=== PATIENT | female | born 1955 | race Caucasian/White ===

== ENCOUNTER 2017-06-21 16:27 | Inpatient (IN) | payer MEDICARE ==
[2017-06-21] MEDS ORDERED: Aspirin 81mg Chewable Tab PO STA (16:43)
[2017-06-21] MEDS ORDERED: Aspirin 81mg Chewable Tab ONE (16:58)
[2017-06-21 17:00] LABS: % BASOPHILS 0.4 % (0.0-2.0); % EOSINOPHILS 0.7 % (0.0-5.0); % LYMPHOCYTES 22.4 % (20.0-50.0); % MONOCYTES 8.1 % (2.0-10.0); % NEUTROPHILS 68.4 % (40.0-80.0); HEMATOCRIT 45.5 % (41.0-60); HEMOGLOBIN 15.4 gm/dL (12-16); LYMPHOCYTE ABSOLUTE 1.4 Th/cmm (1.5-3.0); MEAN CORPUSCULAR HEMOGLOBIN 32.4 pg (27.0-31.0); MEAN CORPUSCULAR HGB CONC 33.8 pg (28.0-36.0); MEAN PLATELET VOLUME 9.9 fl; MONOCYTE ABSOLUTE 0.5 Th/cmm (0.3-1.0); NEUTROPHILE ABSOLUTE 4.2 Th/cmm (1.8-8.0); PLATELET COUNT 207 Th/cmm (150-400); RED BLOOD COUNT 4.74 Mil/cmm (3.80-5.10); RED CELL DISTRIBUTION WIDTH 13.2 % (11.5-20.0); WHITE BLOOD COUNT 6.1 Th/cmm (4.8-10.8)
[2017-06-21 17:18] LABS: INR 1.11 (0.5-1.4); PROTHROMBIN TIME (TEST) 11.6 SECONDS (9.5-11.5)
[2017-06-21 17:19] LABS: ALB/GLOB RATIO 1.2 (1.0-1.8); ALBUMIN 3.7 gm/dL (3.7-5.3); ALKALINE PHOSPHATASE 70 U/L (34-104); ANION GAP 14.1 (7.0-16.0); BILIRUBIN,TOTAL 0.5 mg/dL (0.3-1.0); BUN - UREA NITROGEN 5 mg/dL (7-25); CALCIUM SERUM 9.5 mg/dL (8.6-10.3); CHLORIDE 98 mEq/L (98-107); CHOLESTEROL 161 mg/dL (<200); CREATININE - SERUM 0.9 mg/dL (0.6-1.2); CREATININE KINASE 68 U/L (30-223); GFR AFRICAN-AMERICAN > 60.0 ml/min (>90); GFR NON AFRICAN-AMERICAN > 60.0 ml/min; GLUCOSE 89 mg/dL (70-105); HDL -HIGH DENSITY LIPOPROTEIN 47 mg/dL (23-92); POTASSIUM SERUM 3.1 mEq/L (3.5-5.1); SGOT 21 U/L (13-39); SGPT/ALT 24 U/L (7-52); SODIUM SERUM 140 mEq/L (136-145); TOTAL PROTEIN,SERUM 6.9 gm/dL (6.0-8.3); TRIGLYCERIDES 106 mg/dL (<150)
[2017-06-21 17:25] LABS: DDIMER QUANT 244 ng/mL (100-400)
--- NOTE | 2017-06-21 17:54 | ED Physician Chart ---
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 Pain, A/N/V/D/C, fever, chills, or urinary s/s Allergies:: Allergies Allergy/AdvReac Type Severity Reaction Status Date / Time No Known Allergies Allergy Verified 06/21/17 16:33 Vitals:: Vital Signs - 8 hr 06/21/17 16:38 Temp 98.2 F HR 81 RR 16 BP 136/94 O2 Sat % 99 Historian:: Patient, Family Member Review:: Nurse's Note Reviewed ED Review of Systems - Review of Systems General/Constitutional: No fever, No chills, No weight loss, No weakness, No diaphoresis, No edema, No loss of appetite Skin: No skin lesions, No rash, No bruising Head: No headache, No light-headedness Eyes: No loss of vision, No pain, No diplopia ENT: No earache, No nasal drainage, No sore throat, No tinnitus Neck: No neck pain, No swelling, No thyromegaly, No stiffness, No mass noted Cardio Vascular: Chest pain, No palpitations, No PND, No orthopnea, No edema Pulmonary: SOB, No cough, No sputum, No wheezing GI: No nausea, No vomiting, No diarrhea, No pain, No melena, No hematochezia, No constipation, No hematemesis G/U: No dysuria, No frequency, No hematuria, No nacturia 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 And Finishing: No vaginal discharge, No abnormal vaginal bleed, No contraction Musculoskeletal: No bone or joint pain, No back pain, No muscle pain Endocrine: No polyuria, No polydipsia Psychiatric: No prior psych history, No depression, No anxiety, No suicidal ideation, No homicidal ideation, No auditory hallucination, No visual hallucination Hematopoietic: No bruising, No lymphadenopathy Allergic/Immuno: No urticaria, No angioedema Neurological: No syncope, No focal symptoms, No weakness, No paresthesia, No headache, No seizure, No dizziness, Confusion, No vertigo ED Past Medical History - Past Medical History Obtainable: Yes Past Medical History: HTN, Dyslipidemia, Dementia Family History: HTN Social History: Non Smoker, No Alcohol, No Drug Use, , Care Facility Surgical History: None Psychiatricy History: Dementia Medication: Reviewed ED Physical Exam - Physical Examination General/Constitutional: Awake, Well-developed, well-nourished, Alert, No distress, GCS 15, Non-toxic appearing, Ambulatory Head: Atraumatic Eyes: Lids, conjuctiva normal, PERRL, EOMI Skin: Nl inspection, No rash, No skin lesions, No ecchymosis, Well hydrated, No lymphadenopathy ENMT: External ears, nose nl, TM canals nl, Nasal exam nl, Lips, teeth, gums nl , Oropharynx nl, Tonsils nl Neck: Nontender, Full ROM w/o pain, No JVD, No nuchal rigidity, No bruit, No mass, No stridor Respiratory: Nl effort/Exclusion, Clear to Auscultation, No Wheeze/Rhonchi/Rales Cardio Vascular: RRR, No murmur, gallop, rubs, NL S1 S2, Carotid/Femoral/Distal pulses equal bilaterally GI: No tenderness/rebounding/guarding, No organomegaly, No hernia, Normal BS's, Nondistended, No mass/bruits, No McBurney tenderness : No CVA tenderness Extremities: No tenderness or effusion, Full ROM, normal strength in all extremities, No edema, Normal digits & nails Neuro/Psych: Alert/oriented, DTR's symmetric, Normal sensory exam, Normal motor strength, Judgement/insight normal, Mood normal, Normal gait, No focal deficits Misc: Normal back, No paraspinal tenderness ED Labs/Radiology/EKG Results - Lab Results Results: Laboratory Tests 06/21/17 06/21/17 06/21/17 16:42 16:50 16:50 WBC 6.1 RBC 4.74 Hgb 15.4 Hct 45.5 MCV 96.0 MCH 32.4 H MCHC Differential 33.8 RDW 13.2 Plt Count 207 MPV 9.9 Neutrophils % 68.4 Lymphocytes % 22.4 Monocytes % 8.1 Eosinophils % 0.7 Basophils % 0.4 PT 11.6 H INR 1.11 D-Dimer 244 Sodium 140 Potassium 3.1 L Chloride 98 Carbon Dioxide 31.0 Anion Gap 14.1 BUN 5 L Creatinine 0.9 Est GFR ( Amer) > 60.0 Est GFR (Non-Af Amer) > 60.0 BUN/Creatinine Ratio 5.6 Glucose 89 Calcium 9.5 Total Bilirubin 0.5 AST 21 ALT 24 Alkaline Phosphatase 70 Creatine Kinase 68 Troponin I B-Natriuretic Peptide Total Protein 6.9 Albumin 3.7 Globulin 3.2 Albumin/Globulin Ratio 1.2 Triglycerides 106 Cholesterol 161 LDL Cholesterol Direct 86 HDL Cholesterol 47 06/21/17 06/21/17 16:50 16:50 WBC RBC Hgb Hct MCV MCH MCHC Differential RDW Plt Count MPV Neutrophils % Lymphocytes % Monocytes % Eosinophils % Basophils % PT INR D-Dimer Sodium Potassium Chloride Carbon Dioxide Anion Gap BUN Creatinine Est GFR ( Amer) Est GFR (Non-Af Amer) BUN/Creatinine Ratio Glucose Calcium Total Bilirubin AST ALT Alkaline Phosphatase Creatine Kinase Troponin I < 0.01 L B-Natriuretic Peptide 19.4 Total Protein Albumin Globulin Albumin/Globulin Ratio Triglycerides Cholesterol LDL Cholesterol Direct HDL Cholesterol Comments:: K+: 3.1 - Radiology Results Comments:: NAD - EKG Interpretations EKG Time:: 16:32 Rate & Rhythm: 74; NSR Union: LAD Comments:: non-specific st-t changes ED Septic Shock - . Is Septic Shock (SBP<90, OR Lactate>4 mmol\L) present?: No - <6hrs of presentation: Vital Signs: Vital Signs - 8 hr 06/21/17 16:38 Temp 98.2 F HR 81 RR 16 BP 136/94 O2 Sat % 99 ED Reassessment (Disposition) - Reassessment Reassessment Condition:: Improved - Diagnosis Diagnosis:: Dx: Chest Pain; Dyspnea; Angina Pectoris; Unstable Angina; Dementia - Aftercare/Follow up Instructions Aftercare/Follow-Up Instructions:: Counseled pt regarding lab results/diagnosis & need follow up, Counseled pt & family regarding lab results/diagnosis & need follow up - Patient Disposition Discharge/Transfer:: Acute Care w/in this hosp Admitted to:: Telemetry
[2017-06-21] MEDS ORDERED: Potassium Chloride 20 mEq ER Tab PO ONE ×2 (19:09→19:10)
[2017-06-22 02:30] VITALS: BP 130/85
[2017-06-22 06:11] LABS: % BASOPHILS 0.1 % (0.0-2.0); % EOSINOPHILS 1.1 % (0.0-5.0); % LYMPHOCYTES 26.4 % (20.0-50.0); % MONOCYTES 9.2 % (2.0-10.0); % NEUTROPHILS 63.2 % (40.0-80.0); EOSINOPHILE ABSOLUTE 0.1 Th/cmm (0.1-0.4); HEMATOCRIT 44.1 % (41.0-60); HEMOGLOBIN 14.8 gm/dL (12-16); LYMPHOCYTE ABSOLUTE 1.3 Th/cmm (1.5-3.0); MEAN CELL VOLUME 96.4 fl (81-100); MEAN CORPUSCULAR HEMOGLOBIN 32.3 pg (27.0-31.0); MEAN CORPUSCULAR HGB CONC 33.5 pg (28.0-36.0); MEAN PLATELET VOLUME 9.9 fl; MONOCYTE ABSOLUTE 0.5 Th/cmm (0.3-1.0); PLATELET COUNT 186 Th/cmm (150-400); RED BLOOD COUNT 4.57 Mil/cmm (3.80-5.10); RED CELL DISTRIBUTION WIDTH 12.9 % (11.5-20.0); WHITE BLOOD COUNT 4.9 Th/cmm (4.8-10.8)
[2017-06-22 06:29] LABS: ALB/GLOB RATIO 1.2 (1.0-1.8); ALBUMIN 3.4 gm/dL (3.7-5.3); ALKALINE PHOSPHATASE 66 U/L (34-104); ANION GAP 9.7 (7.0-16.0); BILIRUBIN,TOTAL 0.4 mg/dL (0.3-1.0); BUN - UREA NITROGEN 7 mg/dL (7-25); CALCIUM SERUM 9.1 mg/dL (8.6-10.3); CARBON DIOXIDE 31.6 mEq/L (21.0-31.0); CHLORIDE 101 mEq/L (98-107); CHOLESTEROL 148 mg/dL (<200); CREATININE - SERUM 0.9 mg/dL (0.6-1.2); GFR AFRICAN-AMERICAN > 60.0 ml/min (>90); GFR NON AFRICAN-AMERICAN > 60.0 ml/min; GLUCOSE 100 mg/dL (70-105); HDL -HIGH DENSITY LIPOPROTEIN 43 mg/dL (23-92); POTASSIUM SERUM 3.3 mEq/L (3.5-5.1); SGOT 20 U/L (13-39); SGPT/ALT 21 U/L (7-52); SODIUM SERUM 139 mEq/L (136-145); TOTAL PROTEIN,SERUM 6.3 gm/dL (6.0-8.3); TRIGLYCERIDES 96 mg/dL (<150)
--- NOTE | 2017-06-22 07:33 | Diagnostic Imaging Report ---
CHEST X-RAY: AP view INDICATION: pain COMPARISON: None FINDINGS: Mild chronic lung changes are noted. There is no focal consolidation or pleural effusions The heart is normal in size. Degenerative changes of the spine are noted. IMPRESSION: No focal airspace consolidation identified.
[2017-06-22] MEDS ORDERED: Potassium Chloride 20 mEq ER Tab PO ONE (08:20)
--- NOTE | 2017-06-22 08:27 | History and Physical ---
History of Present Illness - HPI Chief Complaint: Chest Pain HPI: 61 y/o female who presents to [facility] ER from SNF for chest pain rule out ACS. 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 Pain, A/N/V/D/C, fever, chills, or urinary s/s" - Past Medical History Obtainable: Yes Past Medical History: HTN, Dyslipidemia, Dementia Family History: HTN Social History: Non Smoker, No Alcohol, No Drug Use, , Care Facility Surgical History: None Psychiatricy History: Dementia Medication: Reviewed Initial Labwork reveals - Lab Results Results: Laboratory Tests 06/21/17 06/21/17 06/21/17 16:42 16:50 16:50 WBC 6.1 RBC 4.74 Hgb 15.4 Hct 45.5 MCV 96.0 MCH 32.4 H MCHC Differential 33.8 RDW 13.2 Plt Count 207 MPV 9.9 Neutrophils % 68.4 Lymphocytes % 22.4 Monocytes % 8.1 Eosinophils % 0.7 Basophils % 0.4 PT 11.6 H INR 1.11 D-Dimer 244 Sodium 140 Potassium 3.1 L Chloride 98 Carbon Dioxide 31.0 Anion Gap 14.1 BUN 5 L Creatinine 0.9 Est GFR ( Amer) > 60.0 Est GFR (Non-Af Amer) > 60.0 BUN/Creatinine Ratio 5.6 Glucose 89 Calcium 9.5 Total Bilirubin 0.5 AST 21 ALT 24 Alkaline Phosphatase 70 Creatine Kinase 68 Troponin I B-Natriuretic Peptide Total Protein 6.9 Albumin 3.7 Globulin 3.2 Albumin/Globulin Ratio 1.2 Triglycerides 106 Cholesterol 161 LDL Cholesterol Direct 86 HDL Cholesterol 47 06/21/17 06/21/17 16:50 16:50 WBC RBC Hgb Hct MCV MCH MCHC Differential RDW Plt Count MPV Neutrophils % Lymphocytes % Monocytes % Eosinophils % Basophils % PT INR D-Dimer Sodium Potassium Chloride Carbon Dioxide Anion Gap BUN Creatinine Est GFR ( Amer) Est GFR (Non-Af Amer) BUN/Creatinine Ratio Glucose Calcium Total Bilirubin AST ALT Alkaline Phosphatase Creatine Kinase Troponin I < 0.01 L B-Natriuretic Peptide 19.4 Total Protein Albumin Globulin Albumin/Globulin Ratio Triglycerides Cholesterol LDL Cholesterol Direct HDL Cholesterol Comments:: K+: 3.1 Patient was given PO Potassium in the ER. Patient was subsequently admitted for further evaluation and treatment. 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 Pertinent Hx GI: Report: No Pertinent Hx Psych: Report: No Pertinent Hx, Other (Dementia) Musculoskeletal: Report: No Pertinent Hx Rheumatologic: Report: No pertinent Hx Infectious Disease: Report: No Pertinent Hx Renal/: Report: No Pertinent Hx Endocrine: Report: No Pertinent Hx Dermatology: Report: No Pertinent Hx - Past Surgical History Past Surgical History: No pertinent Hx Social History Smoke: No Alcohol: None Drugs: None Lives: Usp - Medications Home Medications: Home Medication Medication Instructions Recorded Type Aripiprazole [Abilify*] 10 mg PO DAILY 06/21/17 History Aspirin [Aspirin Chewable] 81 mg PO DAILY 06/21/17 History Donepezil HCl [Aricept] 23 mg PO DAILY 06/21/17 History Folic Acid [Folate*] 1 mg PO DAILY 06/21/17 History Memantine [Namenda] 10 mg PO BID 06/21/17 History Venlafaxine HCl [Effexor Xr] 300 mg PO DAILY 06/21/17 History buPROPion XL [Wellbutrin Xl*] 300 mg PO DAILY 06/21/17 History - Allergies Allergies/Adverse Reactions: Allergies Allergy/AdvReac Type Severity Reaction Status Date / Time No Known Allergies Allergy Verified 06/21/17 16:33 Review of Systems - Review of Systems Constitutional: Report: No Significant Eyes: Report: No Significant ENT: Report: No Significant Respiratory: Report: No Significant Cardiovascular: Report: Chest Pain Gastrointestinal: Report: No Significant Genitourinary: Report: No Significant Musculoskeletal: Report: No Significant Skin: Report: No Significant Neurological: Report: No Significant Physical Exam - Physical Exam HEENT: Report: Ears Nose Throat within normal limits, Pharnyx within normal limits Neck: Report: Within normal limits Cardiovascular Systems: Report: +s1/s2 noted, Regular, Rate and Rhythm Respiratory: Report: Breath Sounds are within normal limits Abdomen: Report: Non-tender to palpation Back: Report: Inspection of back is within normal limits. Extremities: Report: Non-tender to palpation. Skin: Report: Color of skin is within normal limits Neuro/Psych: Report: Mood affect is within normal limits - Lab Results All Lab Results last 24 hours: Laboratory Results - last 24 hr 06/21/17 06/22/17 06/22/17 23:45 06:00 06:00 WBC 4.9 RBC 4.57 Hgb 14.8 Hct 44.1 MCV 96.4 MCH 32.3 H MCHC Differential 33.5 RDW 12.9 Plt Count 186 MPV 9.9 Neutrophils % 63.2 Lymphocytes % 26.4 Monocytes % 9.2 Eosinophils % 1.1 Basophils % 0.1 Sodium Potassium Chloride Carbon Dioxide Anion Gap BUN Creatinine Est GFR ( Amer) Est GFR (Non-Af Amer) BUN/Creatinine Ratio Glucose Calcium Total Bilirubin AST ALT Alkaline Phosphatase Troponin I < 0.01 L < 0.01 L Total Protein Albumin Globulin Albumin/Globulin Ratio Triglycerides Cholesterol LDL Cholesterol Direct HDL Cholesterol TSH 06/22/17 06/22/17 06:00 06:00 WBC RBC Hgb Hct MCV MCH MCHC Differential RDW Plt Count MPV Neutrophils % Lymphocytes % Monocytes % Eosinophils % Basophils % Sodium 139 Potassium 3.3 L Chloride 101 Carbon Dioxide 31.6 H Anion Gap 9.7 BUN 7 Creatinine 0.9 Est GFR ( Amer) > 60.0 Est GFR (Non-Af Amer) > 60.0 BUN/Creatinine Ratio 7.8 Glucose 100 Calcium 9.1 Total Bilirubin 0.4 AST 20 ALT 21 Alkaline Phosphatase 66 Troponin I Total Protein 6.3 Albumin 3.4 L Globulin 2.9 Albumin/Globulin Ratio 1.2 Triglycerides 96 Cholesterol 148 LDL Cholesterol Direct 80 HDL Cholesterol 43 TSH 0.92 - Assessment Assessment: Current Active Problems Problem Status Onset CHEST PAIN WITH DYSPNEA AND DIZZINESS Acute chest pain r/o ACS hypokalemia HTN Hyperlipidemia Dementia - Plan Plan: cardiology consult -- Dr. Beck serial troponin levels telemetry PO 40meq Kdur repeat CBC,CMP Lipid profile, TSH, HgA1c
[2017-06-22] MEDS: buPROPion XL 150 mg T 24 H PO SCH (09:26)
[2017-06-22] MEDS: Pantoprazole 40 mg EC Tab PO SCH (09:27)
[2017-06-22] MEDS: Aspirin 81mg Chewable Tab PO SCH (09:27)
[2017-06-22 20:06] LABS: A1C % 5.2 % (4.0-6.0)
--- NOTE | 2017-06-22 23:35 | Consultation ---
DATE OF CONSULTATION: 06/22/[address] Brennon Kent. HISTORY AND PHYSICAL: This 61-year-old female patient who was brought to [facility] Emergency Room from [facility] complaining of chest pain. The patient has no history of PND, orthopnea. The patient's chest pain was not radiating to the arm or to the neck. PAST MEDICAL HISTORY: Hypertension, dementia, hyperlipidemia. FAMILY HISTORY: Unremarkable. SOCIAL HISTORY: No history of smoking, alcohol abuse. ALLERGIES: No known allergies. PHYSICAL EXAMINATION: VITAL SIGNS: Blood pressure 130/80, pulse 70, respirations 20. HEAD: Normocephalic. No lumps or bumps. EYES: Pupils equal, reactive to light. Fundi show AV nicking, sclerae white, conjunctivae pink. NECK: Carotid 2+. Normal upstroke. JVD flat. Thyroid not palpable. Lymph nodes not palpable. CHEST: Shows increased AP diameter. No kyphosis, scoliosis. LUNGS: Bilateral bronchovesicular breath sounds. HEART: PMI fifth intercostal space with lateral to midclavicular line. S1, S2. No S3, S4, soft systolic murmur. ABDOMEN: Soft. Liver, spleen not palpable. No organomegaly. Bowel sounds active. NEUROLOGIC: Unremarkable. EXTREMITIES: Peripheral pulses 2+. No pedal edema. CLINICAL IMPRESSION: Chest pain, unlikely coronary artery disease, hypertension, hyperlipidemia, and dementia. PLAN: We will get troponin level, EKG, echocardiogram. [facility]# [id number]
--- NOTE | 2017-06-23 05:03 | Consultation ---
DATE OF CONSULTATION: 06/22/2017 IDENTIFYING INFORMATION: The patient is a 61-year-old female. REASON FOR CONSULTATION: The patient was supposed to go to [facility]. She was in here because of her medical condition. The patient was a poor historian. She was unable to tell me her age, she believes she was 59 years of age, in reality she was 61. She believed that we are in 1974, she believes her date of is 1995. She was very disorganized, not sure where she is. She reports she was seen by a therapist and psychiatrist. She denies any suicidal ideation, but she never tried to harm herself; however, she has very poor memory, so, it is very hard to rely on her. She never tried to harm anyone. She denies any hallucinations; however, she was extremely disorganized and she was somewhat tangential in her speech. PAST PSYCHIATRIC HISTORY: I am not sure if the patient can give information, but no information so far. MEDICAL HISTORY: Deferred to the medical doctor. FAMILY AND SOCIAL HISTORY: The patient reports that she is single, never , no children. Unable to tell me her job, unable to tell me how far she went in school, unable to tell me any family history of psychotic disorder, suicide, or substance abuse or where she lives. MENTAL STATUS EXAMINATION: The patient is appropriately dressed, not very well groomed. She was alert. She was unable to tell me her date of , her age, where she is, and why she is here. Her long and short term memory is poor. She was denying that she wants to harm herself or anybody. Denies any current hallucination. Her insight and judgment is impaired, is questionable. IMPRESSION: AXIS I: Depression, not otherwise specified; dementia. MEDICAL DIAGNOSES: Deferred to the medical doctor. RECOMMENDATIONS: We will observe the patient and give medication as needed. The patient may need to go to [facility]. Thank you very much for allowing me to participate in the care of this most interesting lady. JOB# [id number]
[2017-06-23 06:29] LABS: ANION GAP 9.2 (7.0-16.0); BUN - UREA NITROGEN 9 mg/dL (7-25); CALCIUM SERUM 8.9 mg/dL (8.6-10.3); CARBON DIOXIDE 28.3 mEq/L (21.0-31.0); CHLORIDE 106 mEq/L (98-107); CREATININE - SERUM 0.8 mg/dL (0.6-1.2); GFR AFRICAN-AMERICAN > 60.0 ml/min (>90); GFR NON AFRICAN-AMERICAN > 60.0 ml/min; GLUCOSE 100 mg/dL (70-105); POTASSIUM SERUM 3.5 mEq/L (3.5-5.1); SODIUM SERUM 140 mEq/L (136-145)
--- NOTE | 2017-06-23 08:23 | General Progress Note ---
Subjective - Review of Systems Service Date: 06/23/17 Subjective: Patient was seen and examine. Patient to have an ECHO done today. Patient seen by cardiology. Objective - Results Result Diagrams: 06/22/17 06:00 06/23/17 05:57 Recent Labs: Laboratory Last Values WBC 4.9 Th/cmm (4.8-10.8) 06/22/17 06:00 RBC 4.57 Mil/cmm (3.80-5.10) 06/22/17 06:00 Hgb 14.8 gm/dL (12-16) 06/22/17 06:00 Hct 44.1 % (41.0-60) 06/22/17 06:00 MCV 96.4 fl (81-100) 06/22/17 06:00 MCH 32.3 pg (27.0-31.0) H 06/22/17 06:00 MCHC Differential 33.5 pg (28.0-36.0) 06/22/17 06:00 RDW 12.9 % (11.5-20.0) 06/22/17 06:00 Plt Count 186 Th/cmm (150-400) 06/22/17 06:00 MPV 9.9 fl 06/22/17 06:00 Neutrophils % 63.2 % (40.0-80.0) 06/22/17 06:00 Lymphocytes % 26.4 % (20.0-50.0) 06/22/17 06:00 Monocytes % 9.2 % (2.0-10.0) 06/22/17 06:00 Eosinophils % 1.1 % (0.0-5.0) 06/22/17 06:00 Basophils % 0.1 % (0.0-2.0) 06/22/17 06:00 PT 11.6 SECONDS (9.5-11.5) H 06/21/17 16:50 INR 1.11 (0.5-1.4) 06/21/17 16:50 D-Dimer 244 ng/mL (100-400) 06/21/17 16:50 Sodium 140 mEq/L (136-145) 06/23/17 05:57 Potassium 3.5 mEq/L (3.5-5.1) 06/23/17 05:57 Chloride 106 mEq/L (98-107) 06/23/17 05:57 Carbon Dioxide 28.3 mEq/L (21.0-31.0) 06/23/17 05:57 Anion Gap 9.2 (7.0-16.0) 06/23/17 05:57 BUN 9 mg/dL (7-25) 06/23/17 05:57 Creatinine 0.8 mg/dL (0.6-1.2) 06/23/17 05:57 Est GFR ( Amer) > 60.0 ml/min (>90) 06/23/17 05:57 Est GFR (Non-Af Amer) > 60.0 ml/min 06/23/17 05:57 BUN/Creatinine Ratio 11.3 06/23/17 05:57 Glucose 100 mg/dL (70-105) 06/23/17 05:57 Hemoglobin A1c % 5.2 % (4.0-6.0) 06/22/17 06:00 Calcium 8.9 mg/dL (8.6-10.3) 06/23/17 05:57 Magnesium 1.8 mg/dL (1.9-2.7) L 06/22/17 12:35 Total Bilirubin 0.4 mg/dL (0.3-1.0) 06/22/17 06:00 AST 20 U/L (13-39) 06/22/17 06:00 ALT 21 U/L (7-52) 06/22/17 06:00 Alkaline Phosphatase 66 U/L (34-104) 06/22/17 06:00 Creatine Kinase 68 U/L (30-223) 06/21/17 16:50 Troponin I < 0.01 ng/mL (0.01-0.05) L 06/22/17 12:35 B-Natriuretic Peptide 19.4 pg/mL (5.0-100.0) 06/21/17 16:50 Total Protein 6.3 gm/dL (6.0-8.3) 06/22/17 06:00 Albumin 3.4 gm/dL (3.7-5.3) L 06/22/17 06:00 Globulin 2.9 gm/dL 06/22/17 06:00 Albumin/Globulin Ratio 1.2 (1.0-1.8) 06/22/17 06:00 Triglycerides 96 mg/dL (<150) 06/22/17 06:00 Cholesterol 148 mg/dL (<200) 06/22/17 06:00 LDL Cholesterol Direct 80 mg/dL (75-193) 06/22/17 06:00 HDL Cholesterol 43 mg/dL (23-92) 06/22/17 06:00 TSH 0.92 uIU/ml (0.34-5.60) 06/22/17 06:00 - Physical Exam Vitals and I&O: Vital Signs Temp 98.2 F 06/23/17 04:00 Pulse 78 06/23/17 04:00 Resp 20 06/23/17 04:00 BP 123/81 06/23/17 04:00 Pulse Ox 94 06/23/17 04:00 Intake & Output 06/22/17 06/23/17 06/23/17 18:59 06:59 18:59 Intake Total 500 300 Balance 500 300 Weight (lbs) 91.399 kg 91.399 kg Intake: Oral 500 300 Other: # Voids 3 3 # Bowel Movements 0 0 Weight Source Bedscale Bedscale Active Medications: Current Medications Aripiprazole (Abilify) 10 mg PO DAILY [facility] PRN Reason: Protocol Stop: 08/21/17 08:59 Last Admin: 06/22/17 09:27 Dose: 10 mg Aspirin (Aspirin Chewable) 81 mg PO DAILY [facility] Stop: 08/21/17 08:59 Last Admin: 06/22/17 09:27 Dose: 81 mg Bupropion HCl (Wellbutrin Xl) 300 mg PO DAILY [facility] PRN Reason: Protocol Stop: 08/21/17 08:59 Last Admin: 06/22/17 09:26 Dose: 300 mg Donepezil HCl (Aricept) 20 mg PO DAILY [facility] Stop: 08/21/17 08:59 Last Admin: 06/22/17 09:27 Dose: 20 mg Folic Acid (Folate) 1 mg PO DAILY [facility] Stop: 08/21/17 08:59 Last Admin: 06/22/17 09:27 Dose: 1 mg Memantine (Namenda) 10 mg PO BID [facility] Stop: 08/21/17 08:59 Last Admin: 06/22/17 16:53 Dose: 10 mg Pantoprazole Sodium (Protonix) 40 mg PO DAILY [facility] Stop: 08/21/17 08:59 Last Admin: 06/22/17 09:27 Dose: 40 mg Venlafaxine HCl (Effexor Xr) 300 mg PO DAILY [facility] Stop: 08/21/17 08:59 Last Admin: 06/22/17 09:27 Dose: 300 mg General: Alert, No acute distress HEENT: Atraumatic, PERRLA, EOMI Neck: Supple, no JVD, no Thyromegaly Cardiovascular: Regular rate, Normal S1, Normal S2 Lungs: Clear to auscultation Abdomen: Bowel sounds Extremities: no Clubbing, no Cyanosis, no Edema Neurological: Normal gait, Normal speech Assessment/Plan - Problem List Patient Problems: All Active Problems CHEST PAIN WITH DYSPNEA AND DIZZINESS (Acute) - Assessment Assessment: Current Active Problems Problem Status Onset CHEST PAIN WITH DYSPNEA AND DIZZINESS Acute chest pain r/o ACS hypokalemia HTN Hyperlipidemia Dementia possible GERD Psychosis hypomagnesemia - Plan Plan: ECHO to be done and read by cardiology -- Dr. Beck On Protonix 40mg PO daily For possible placement at SNF per family's request continue PO magnesemia
[2017-06-23] MEDS: Pantoprazole 40 mg EC Tab PO SCH (09:34)
[2017-06-23] MEDS: Aspirin 81mg Chewable Tab PO SCH (09:35)
[2017-06-23] MEDS: buPROPion XL 150 mg T 24 H PO SCH (09:35)
--- NOTE | 2017-06-24 17:16 | Cardiology ---
06/22/2017 PROCEDURE: Echocardiogram. The patient of Dr. Brennon Kent. M-MODE ECHOCARDIOGRAM: Mitral valve, anterior leaflet of mitral valve shows normal excursion, EF velocity. Posterior leaflet of the mitral valve shows normal excursion. Left ventricular posterior wall shows increased thickness, normal excursion. Interventricular septum shows increased thickness, normal excursion, hypertrophy of the left ventricle, ejection fraction 57%. Left atrium normal. Aortic root shows normal dimension, normal excursion of aortic leaflets. CONCLUSION: Hypertrophy of the left ventricle, ejection fraction 57%. 2D ECHO: Long axis view showed normal sized left ventricle with hypertrophy of the left ventricle. Left atrium normal. Aortic root shows normal dimension, normal excursion of aortic leaflets. Short axis view of mitral valve normal. Short axis view of aortic valve normal. Apical four chamber view showed normal sized left ventricle, left atrium, right ventricle, right atrium, tricuspid and mitral valve. Ejection fraction 57%. CONCLUSION: Hypertrophy of the left ventricle, ejection fraction 57%. Doppler study showed trace mitral regurgitation, tricuspid regurgitation, mild aortic regurgitation based on pressure half time of 320 milliseconds. JOB# [id number]
--- NOTE | 2017-06-24 20:11 | Discharge Summary ---
DATE OF DISCHARGE: 06/23/2017 PRELIMINARY DIAGNOSES: 1. Chest pain, rule out acute coronary syndrome. 2. Hypokalemia. 3. Hypertension. 4. Hyperlipidemia. 5. Dementia. DISCHARGE DIAGNOSES: 1. Chest pain, acute coronary syndrome ruled out. 2. Hypokalemia, now resolved. 3. Hypertension. 4. Hyperlipidemia. 5. Dementia. BRIEF HISTORY OF PRESENT ILLNESS: This is a 61-year-old female who presents to [facility] ER for chest pain noted by family members. The patient has a past medical history that includes hypertension, hyperlipidemia and dementia. While in the ER, the patient had undergone some initial lab work. White count was normal at 6.1, hemoglobin 15.4, hematocrit 45.5 and platelets 207. PT/INR was 11.6 and 1.1. D-dimer 244, sodium 140, potassium noted to be low at 3.1, BUN was 5 and creatinine 0.9. AST was 21, ALT 24, alkaline phosphatase 70, total cholesterol was 161, triglycerides 106, LDL 86 and HDL 47. Initial troponin level was less than 0.01. BNP was 19.4. While in the ER, the patient was seen and evaluated by the ER physician and states onset of chest pain for the past 3 hours with pain on exertion, pressure type chest pain radiating to the left shoulder and arm with dyspnea, relieved with rest. The patient denies trauma, headaches, stiffness or tenderness, neck pain, cough, abdominal pain, nausea, vomiting, diarrhea, constipation, fever, chills or urinary symptoms. The patient was subsequently admitted to telemetry bed and serial troponin levels were ordered. Cardiac consult with Dr. Gustavo Beck was ordered. HOSPITAL COURSE: The patient improved during her hospital stay, acute coronary syndrome was ruled out. The patient also underwent echocardiogram and evaluation by Dr. Beck. Please see his dictated report. The patient was given oral potassium as well as magnesium, during which her magnesium level was noted to be low. The patient was subsequently transferred to [facility], was seen and evaluated by Psychiatry and was found to have some psychosis. [facility]# [id number]
== END 2017-06-23 18:46 | DRG 206 ==
LOC: ER 16:27 → TELE 20:09
PROVIDERS: ADMIT Family Medicine; ATTEND Family Medicine
DX: M94.0 Chondrocostal junction syndrome [Tietze] (principal); E87.6 Hypokalemia; I10 Essential (primary) hypertension; E78.5 Hyperlipidemia, unspecified; F03.90 Unspecified dementia, unspecified severity, without behavioral disturbance, psychotic disturbance, mood disturbance, and anxiety; Z82.49 Family history of ischemic heart disease and other diseases of the circulatory system; Z79.82 Long term (current) use of aspirin; E83.42 Hypomagnesemia; F29 Unspecified psychosis not due to a substance or known physiological condition
CPT/HCPCS: 36415-UA; 71045-TC; 80048-TC; 80053-TC; 80061-TC; 82550-TC; 83036-90; 83735-TC; 83880-TC; 84443-TC; 84484-TC; 85025-TC; 85379-TC; 85610-TC; 93005; 94760; Z7610

== ENCOUNTER 2017-09-05 16:41 | Inpatient (IN) | payer MEDICARE, MEDICAID ==
[2017-09-05 17:19] LABS: % BASOPHILS 0.2 % (0.0-2.0); % EOSINOPHILS 1.8 % (0.0-5.0); % LYMPHOCYTES 18.2 % (20.0-50.0); % NEUTROPHILS 74.8 % (40.0-80.0); EOSINOPHILE ABSOLUTE 0.1 Th/cmm (0.1-0.4); HEMATOCRIT 40.9 % (41.0-60); HEMOGLOBIN 13.9 gm/dL (12-16); LYMPHOCYTE ABSOLUTE 1.4 Th/cmm (1.5-3.0); MEAN CELL VOLUME 96.1 fl (81-100); MEAN CORPUSCULAR HEMOGLOBIN 32.5 pg (27.0-31.0); MEAN CORPUSCULAR HGB CONC 33.9 pg (28.0-36.0); MEAN PLATELET VOLUME 7.8 fl; MONOCYTE ABSOLUTE 0.4 Th/cmm (0.3-1.0); NEUTROPHILE ABSOLUTE 5.8 Th/cmm (1.8-8.0); PLATELET COUNT 327 Th/cmm (150-400); RED BLOOD COUNT 4.26 Mil/cmm (3.80-5.10); RED CELL DISTRIBUTION WIDTH 14.5 % (11.5-20.0); WHITE BLOOD COUNT 7.7 Th/cmm (4.8-10.8)
--- NOTE | 2017-09-05 17:27 | ED Physician Chart ---
ED Chief Complaint/HPI - Patient Information Date Seen:: 09/05/17 Time Seen:: 17:12 Chief Complaint:: COMBATIVE History of Present Illness:: THIS IS A 62 YO FEMALE WHO WAS SENT FROM A HALFWAY FOR TREATMENT AND EVALUATION OF HER AGGRESSIVE BEHAVIOR TOWARD THE PEOPLE AROUND HER TODAY. SHE HAS DEMENTIA,PSYCHOSIS, HTN AND MUSCLE WEAKNESS. Allergies:: Allergies Allergy/AdvReac Type Severity Reaction Status Date / Time No Known Allergies Allergy Verified 09/05/17 17:05 Vitals:: Vital Signs - 8 hr 09/05/17 17:05 Temp 98.8 F HR 86 RR 18 BP 130/84 O2 Sat % 96 Historian:: EMS, Medical Records Review:: Nurse's Note Reviewed, Transfer documents Reviewed ED Review of Systems - Review of Systems General/Constitutional: Other (THIS PATIENT IS UNABLE TO GIVE A REVIEW OF SYSTEMS.) ED Past Medical History - Past Medical History Obtainable: Yes Past Medical History: HTN, Dyslipidemia, Dementia Family History: None Social History: Non Smoker, No Alcohol, No Drug Use, Care Facility Surgical History: None Psychiatricy History: Depression, Bipolar, Dementia Medication: Reviewed Family Medical History - Family Member Mother History Unknown: Yes Ethnicity: Non- Living Status: Still Living Hx Family Cancer: (Unknown) Hx Family Coronary Artery Disease: (Unknown) Hx Family Congestive Heart Failure: (Unknown) Hx Family Hypertension: Yes Hx Family Stroke: (Unknown) Hx Family Diabetes: (Unknown) Hx Family Seizures: (Unknown) Hx Family Dementia: (Unknown) Hx Family AIDS: (Unknown) Hx Family HIV: No Hx Family COPD: (Unknown) Hx Family Hepatitis: (Unknown) Hx Family Psychiatric Problems: (Unknown) Hx Family Tuberculosis: (Unknown) ED Physical Exam - Physical Examination General/Constitutional: Awake, Well-developed, well-nourished, Alert, No distress, GCS 15, Non-toxic appearing, Ambulatory Other Gen/Cons comments:: DISORIENTATED Head: Atraumatic Eyes: Lids, conjuctiva normal, PERRL, EOMI Skin: Nl inspection, No rash, No skin lesions, No ecchymosis, Well hydrated, No lymphadenopathy ENMT: External ears, nose nl, Nasal exam nl, Lips, teeth, gums nl Neck: Nontender, Full ROM w/o pain, No JVD, No nuchal rigidity, No bruit, No mass, No stridor Respiratory: Nl effort/Exclusion, Clear to Auscultation, No Wheeze/Rhonchi/Rales Cardio Vascular: RRR, No murmur, gallop, rubs, NL S1 S2 GI: No tenderness/rebounding/guarding, No organomegaly, No hernia, Normal BS's, Nondistended, No mass/bruits, No McBurney tenderness : No CVA tenderness Extremities: No tenderness or effusion, Full ROM, normal strength in all extremities, No edema, Normal digits & nails Neuro/Psych: Alert/oriented, DTR's symmetric, Normal sensory exam, Normal motor strength, Judgement/insight normal (NOT ABLE TO THE AND HAS NO INSIGHT), Mood normal, Normal gait, No focal deficits Misc: Normal back, No paraspinal tenderness ED Labs/Radiology/EKG Results - Lab Results Results: Laboratory Tests 09/05/17 17:13 WBC 7.7 RBC 4.26 Hgb 13.9 Hct 40.9 L MCV 96.1 MCH 32.5 H MCHC Differential 33.9 RDW 14.5 Plt Count 327 MPV 7.8 Neutrophils % 74.8 Lymphocytes % 18.2 L Monocytes % 5.0 Eosinophils % 1.8 Basophils % 0.2 - EKG Interpretations EKG Time:: 17:07 Rate & Rhythm: RATE=83 SINUS, [place]: LEFT Intervals: NO ECTOPY ED Assessment - Assessment General Assessment: PSYCHOSIS ED Septic Shock - . Is Septic Shock (SBP<90, OR Lactate>4 mmol\L) present?: No - <6hrs of presentation: Vital Signs: Vital Signs - 8 hr 09/05/17 17:05 Temp 98.8 F HR 86 RR 18 BP 130/84 O2 Sat % 96 ED Reassessment (Disposition) - Reassessment Reassessment Condition:: Unchanged - Diagnosis Diagnosis:: PSYCHOSIS - Patient Disposition Discharge/Transfer:: Acute Care w/in this hosp Admitting Medical Physician:: Kike Kent Admitting Psych Physician:: Jo Ann Castellanos ED Discharge Plan - Patient Disposition Admit/Discharge/Transfer: Acute Care w/in this hosp
[2017-09-05 17:58] LABS: URINE BILIRUBIN NEGATIVE (NEGATIVE); URINE BLOOD NEGATIVE (NEGATIVE); URINE GLUCOSE (UA) NEGATIVE (NEGATIVE); URINE KETONE NEGATIVE (NEGATIVE); URINE LEUKOCYTE ESTERASE NEGATIVE (NEGATIVE); URINE MICROSCOPIC INDICATED? YES; URINE NITRATE NEGATIVE (NEGATIVE); URINE PROTEIN NEGATIVE (NEGATIVE); URINE SOURCE CLEAN C; URINE UROBILINOGEN 0.2 E.U./dL (0.2 - 1.0)
[2017-09-05 18:02] LABS: URINE CLARITY CLEAR (CLEAR); URINE COLOR YELLOW
[2017-09-05 18:04] LABS: URINE BACTERIA NONE SEEN /hpf (NONE SEEN); URINE EPITHELIAL CELLS NONE SEEN /lpf (FEW); URINE RBC NONE SEEN /hpf (0-5); URINE WBC NONE SEEN /hpf (0-5)
[2017-09-05 18:06] LABS: ALB/GLOB RATIO 1.2 (1.0-1.8); ALBUMIN 3.8 gm/dL (3.7-5.3); ALKALINE PHOSPHATASE 91 U/L (34-104); ANION GAP 11.3 (7.0-16.0); BILIRUBIN,TOTAL 0.2 mg/dL (0.3-1.0); BUN - UREA NITROGEN 19 mg/dL (7-25); CALCIUM SERUM 9.4 mg/dL (8.6-10.3); CARBON DIOXIDE 25.8 mEq/L (21.0-31.0); CHLORIDE 103 mEq/L (98-107); CREATININE - SERUM 0.7 mg/dL (0.6-1.2); GFR AFRICAN-AMERICAN > 60.0 ml/min (>90); GFR NON AFRICAN-AMERICAN > 60.0 ml/min; GLUCOSE 85 mg/dL (70-105); POTASSIUM SERUM 4.1 mEq/L (3.5-5.1); SGOT 18 U/L (13-39); SGPT/ALT 29 U/L (7-52); SODIUM SERUM 136 mEq/L (136-145)
[2017-09-05 21:34] VITALS: BP 135/79
[2017-09-05] MEDS ORDERED: Magnesium Hydroxide (MOM) 30 mL UDC PO PRN (21:50)
[2017-09-05] MEDS ORDERED: Maalox 30 mL Cup PO PRN (21:50)
--- NOTE | 2017-09-06 07:52 | Diagnostic Imaging Report ---
CHEST X-RAY: AP view INDICATION: pain COMPARISON: 06/21/2017 FINDINGS: There is no focal consolidation or pleural effusions. Borderline cardiomegaly is noted with mildly tortuous aorta. Degenerative changes of the spine are noted. IMPRESSION: No focal airspace consolidation identified. Borderline cardiomegaly with mildly tortuous aorta.
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
[2017-09-06] MEDS: Aspirin 81mg Chewable Tab PO SCH (09:14)
[2017-09-06] MEDS: buPROPion XL 150 mg T 24 H PO SCH (09:14)
[2017-09-06] MEDS: Multivitamin Tab PO SCH (09:15)
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
[2017-09-07] MEDS: Aspirin 81mg Chewable Tab PO SCH (10:14)
[2017-09-07] MEDS: buPROPion XL 150 mg T 24 H PO SCH (10:14)
[2017-09-07] MEDS: Multivitamin Tab PO SCH (10:14)
--- NOTE | 2017-09-07 23:18 | Progress Notes ---
DATE: 09/07/2017 Case was discussed with staff of the patient, reviewed records. This is a 62-year-old female who is a well-known case to me as I have seen her at [facility] and also she was hospitalized here before. The patient apparently was rehospitalized again because of agitation and aggressive behavior. The patient is a poor historian, does not know why she is here or what brought her here, unable to participate in a meaningful conversation or make safe plan for self-care. However, she also reports hearing voices. She has been compliant with the medication, no side effects, but very confused, demented. No side effects from the medication, no sedation, no nausea and no extrapyramidal symptoms. She was restarted on her medications; Abilify 10 mg a day mg, Wellbutrin 300 mg daily, Aricept 20 mg daily, multivitamin 1 tablet daily, Namenda 10 mg twice a day, Effexor 300 mg daily. No side effects, no sedation noted and no extrapyramidal symptoms. We will continue outpatient group therapy, milieu therapy, adjust medications as needed. JOB# [id number]
[2017-09-08] MEDS: Multivitamin Tab PO SCH (09:21)
[2017-09-08] MEDS: buPROPion XL 150 mg T 24 H PO SCH (09:21)
[2017-09-08] MEDS: Aspirin 81mg Chewable Tab PO SCH (09:22)
--- NOTE | 2017-09-09 01:03 | Progress Notes ---
DATE: 09/08/2017 Case was discussed with staff of the patient, reviewed records. The patient continues to be confused, irritable, continues to have poor insight. Continues to be unable to make safe plan for self-care, easily agitated. However, she is compliant with the medication with no side effects, no sedation, no nausea, no extrapyramidal symptoms and we will continue to work with the patient in group therapy, milieu therapy, adjust medication as needed. Her lab work showed low hematocrit, high MCH, low lymphocyte. The rest within normal range. Chemistry panel shows ____ the rest within normal range. Urinalysis within normal range. I will continue the patient in group therapy, milieu therapy, and adjust medications as needed. JOB# [id number]
--- NOTE | 2017-09-09 08:38 | Progress Notes ---
DATE: 09/09/2017 Case was discussed with staff of the patient, reviewed records. The patient continues to be confused, unable to participate in meaningful conversation or make safe plan for self-care. Unable tell me the date, unable to carry on a conversation, very poor insight, easily agitated. She is sleeping better, eating better. She can feed herself. No side effects from the medication. No sedation, no nausea, and no extrapyramidal symptoms. I will continue outpatient group therapy, milieu therapy, adjust medication as needed. JOB# [id number]
[2017-09-09] MEDS: buPROPion XL 150 mg T 24 H PO SCH (09:50)
[2017-09-09] MEDS: Multivitamin Tab PO SCH (09:51)
[2017-09-09] MEDS: Aspirin 81mg Chewable Tab PO SCH (09:51)
--- NOTE | 2017-09-10 07:58 | General Progress Note ---
Subjective - Review of Systems Service Date: 09/10/17 Subjective: Awake, alert but confused Objective - Results Result Diagrams: 09/05/17 17:13 09/05/17 17:13 Recent Labs: Laboratory Last Values WBC 7.7 Th/cmm (4.8-10.8) 09/05/17 17:13 RBC 4.26 Mil/cmm (3.80-5.10) 09/05/17 17:13 Hgb 13.9 gm/dL (12-16) 09/05/17 17:13 Hct 40.9 % (41.0-60) L 09/05/17 17:13 MCV 96.1 fl (81-100) 09/05/17 17:13 MCH 32.5 pg (27.0-31.0) H 09/05/17 17:13 MCHC Differential 33.9 pg (28.0-36.0) 09/05/17 17:13 RDW 14.5 % (11.5-20.0) 09/05/17 17:13 Plt Count 327 Th/cmm (150-400) 09/05/17 17:13 MPV 7.8 fl 09/05/17 17:13 Neutrophils % 74.8 % (40.0-80.0) 09/05/17 17:13 Lymphocytes % 18.2 % (20.0-50.0) L 09/05/17 17:13 Monocytes % 5.0 % (2.0-10.0) 09/05/17 17:13 Eosinophils % 1.8 % (0.0-5.0) 09/05/17 17:13 Basophils % 0.2 % (0.0-2.0) 09/05/17 17:13 Sodium 136 mEq/L (136-145) 09/05/17 17:13 Potassium 4.1 mEq/L (3.5-5.1) 09/05/17 17:13 Chloride 103 mEq/L (98-107) 09/05/17 17:13 Carbon Dioxide 25.8 mEq/L (21.0-31.0) 09/05/17 17:13 Anion Gap 11.3 (7.0-16.0) 09/05/17 17:13 BUN 19 mg/dL (7-25) 09/05/17 17:13 Creatinine 0.7 mg/dL (0.6-1.2) 09/05/17 17:13 Est GFR ( Amer) > 60.0 ml/min (>90) 09/05/17 17:13 Est GFR (Non-Af Amer) > 60.0 ml/min 09/05/17 17:13 BUN/Creatinine Ratio 27.1 09/05/17 17:13 Glucose 85 mg/dL (70-105) 09/05/17 17:13 Calcium 9.4 mg/dL (8.6-10.3) 09/05/17 17:13 Total Bilirubin 0.2 mg/dL (0.3-1.0) L 09/05/17 17:13 AST 18 U/L (13-39) 09/05/17 17:13 ALT 29 U/L (7-52) 09/05/17 17:13 Alkaline Phosphatase 91 U/L (34-104) 09/05/17 17:13 Total Protein 7.0 gm/dL (6.0-8.3) 09/05/17 17:13 Albumin 3.8 gm/dL (3.7-5.3) 09/05/17 17:13 Globulin 3.2 gm/dL 09/05/17 17:13 Albumin/Globulin Ratio 1.2 (1.0-1.8) 09/05/17 17:13 Urine Source CLEAN C 09/05/17 17:50 Urine Color YELLOW 09/05/17 17:50 Urine Clarity CLEAR (CLEAR) 09/05/17 17:50 Urine pH 6.0 (4.6 - 8.0) 09/05/17 17:50 Ur Specific Maxwell 1.020 (1.005-1.030) 09/05/17 17:50 Urine Protein NEGATIVE mg/dL (NEGATIVE) 09/05/17 17:50 Urine Glucose (UA) NEGATIVE mg/dL (NEGATIVE) 09/05/17 17:50 Urine Ketones NEGATIVE mg/dL (NEGATIVE) 09/05/17 17:50 Urine Blood NEGATIVE (NEGATIVE) 09/05/17 17:50 Urine Nitrate NEGATIVE (NEGATIVE) 09/05/17 17:50 Urine Bilirubin NEGATIVE (NEGATIVE) 09/05/17 17:50 Urine Urobilinogen 0.2 E.U./dL (0.2 - 1.0) 09/05/17 17:50 Ur Leukocyte Esterase NEGATIVE (NEGATIVE) 09/05/17 17:50 Urine RBC NONE SEEN /hpf (0-5) 09/05/17 17:50 Urine WBC NONE SEEN /hpf (0-5) 09/05/17 17:50 Ur Epithelial Cells NONE SEEN /lpf (FEW) 09/05/17 17:50 Urine Bacteria NONE SEEN /hpf (NONE SEEN) 09/05/17 17:50 - Physical Exam Vitals and I&O: Vital Signs Temp 97.4 F 09/10/17 06:39 Pulse 70 09/10/17 06:39 Resp 20 09/10/17 06:39 BP 117/75 09/10/17 06:39 Pulse Ox 100 09/10/17 06:39 Intake & Output 09/09/17 09/10/17 09/10/17 18:59 06:59 18:59 Intake Total 1200 Balance 1200 Intake: Oral 1200 Other: # Voids 3 # Bowel Movements 0 Active Medications: Current Medications Acetaminophen (Tylenol) 650 mg PO Q4HR PRN PRN Reason: Mild Pain / Temp above 100 Stop: 11/04/17 21:49 Al Hydrox/Mg Hydrox/Simethicone (Maalox) 30 ml PO Q4HR PRN PRN Reason: GI DISTRESS Stop: 11/04/17 21:49 Aripiprazole (Abilify) 10 mg PO DAILY [facility]; Protocol Stop: 11/05/17 08:59 Last Admin: 09/09/17 09:50 Dose: 10 mg Aspirin (Aspirin Chewable) 81 mg PO DAILY [facility] Stop: 11/05/17 08:59 Last Admin: 09/09/17 09:51 Dose: 81 mg Bupropion HCl (Wellbutrin Xl) 300 mg PO DAILY [facility]; Protocol Stop: 11/05/17 08:59 Last Admin: 09/09/17 09:50 Dose: 300 mg Donepezil HCl (Aricept) 20 mg PO DAILY [facility] Stop: 11/05/17 08:59 Last Admin: 09/09/17 09:50 Dose: 20 mg Folic Acid (Folate) 1 mg PO DAILY [facility] Stop: 11/05/17 08:59 Last Admin: 09/09/17 09:51 Dose: 1 mg Lorazepam (Ativan) 0.5 mg PO Q4HR PRN; Protocol PRN Reason: anxiety/agitation Stop: 10/05/17 21:49 Last Admin: 09/08/17 21:09 Dose: 0.5 mg Magnesium Hydroxide (Milk Of Magnesia) 30 ml PO HS PRN PRN Reason: Constipation Memantine (Namenda) 10 mg PO BID [facility]LA[facility] Stop: 11/05/17 08:59 Last Admin: 09/09/17 16:40 Dose: 10 mg Multivitamins/Vitamin C (Theragran) 1 tab PO DAILY [facility] Stop: 11/05/17 08:59 Last Admin: 09/09/17 09:51 Dose: 1 tab Venlafaxine HCl (Effexor Xr) 300 mg PO DAILY [facility]; Protocol Stop: 11/05/17 08:59 Last Admin: 09/09/17 09:50 Dose: 300 mg Zolpidem Tartrate (Ambien) 5 mg PO HS PRN PRN Reason: Insomnia Stop: 11/05/17 04:41 Last Admin: 09/09/17 21:13 Dose: 5 mg General: Alert, No acute distress HEENT: Atraumatic, PERRLA, EOMI Neck: Supple, JVD Cardiovascular: Regular rate, Normal S1, Normal S2 Lungs: Clear to auscultation Abdomen: Bowel sounds, Soft Extremities: no Clubbing, no Cyanosis, no Edema Neurological: Normal gait, Normal speech Skin: no Rash Assessment/Plan - Assessment Assessment: Acute Psychosis with aggressive attitude Bipolar Disorder HTN Major Depression Generalized Weakness - Plan Plan: continue current treatment
[2017-09-10] MEDS: Aspirin 81mg Chewable Tab PO SCH (09:01)
[2017-09-10] MEDS: buPROPion XL 150 mg T 24 H PO SCH (09:01)
[2017-09-10] MEDS: Multivitamin Tab PO SCH (09:02)
--- NOTE | 2017-09-10 23:49 | Progress Notes ---
DATE: 09/10/2017 SUBJECTIVE: Case was discussed with staff of the patient, reviewed records. The patient continues to be confused, demented, unpredictable, impulsive, needing redirection, unable to make safe plan for self-care, internally preoccupied, easily agitated. She is sleeping well. She is eating well. She is confused herself. OBJECTIVE: She is compliant with the medication with no side effects, no sedation, no nausea and no extrapyramidal symptoms. PLAN OF CARE: We will continue the patient in group therapy, milieu therapy and adjust the medication as needed. JOB# [id number]
--- NOTE | 2017-09-11 06:36 | General Progress Note ---
Subjective - Review of Systems Service Date: 09/11/17 Subjective: Awake, alert but confused VS T97.0 P82 BP 117/66 R20 Objective - Results Result Diagrams: 09/05/17 17:13 09/05/17 17:13 Recent Labs: Laboratory Last Values WBC 7.7 Th/cmm (4.8-10.8) 09/05/17 17:13 RBC 4.26 Mil/cmm (3.80-5.10) 09/05/17 17:13 Hgb 13.9 gm/dL (12-16) 09/05/17 17:13 Hct 40.9 % (41.0-60) L 09/05/17 17:13 MCV 96.1 fl (81-100) 09/05/17 17:13 MCH 32.5 pg (27.0-31.0) H 09/05/17 17:13 MCHC Differential 33.9 pg (28.0-36.0) 09/05/17 17:13 RDW 14.5 % (11.5-20.0) 09/05/17 17:13 Plt Count 327 Th/cmm (150-400) 09/05/17 17:13 MPV 7.8 fl 09/05/17 17:13 Neutrophils % 74.8 % (40.0-80.0) 09/05/17 17:13 Lymphocytes % 18.2 % (20.0-50.0) L 09/05/17 17:13 Monocytes % 5.0 % (2.0-10.0) 09/05/17 17:13 Eosinophils % 1.8 % (0.0-5.0) 09/05/17 17:13 Basophils % 0.2 % (0.0-2.0) 09/05/17 17:13 Sodium 136 mEq/L (136-145) 09/05/17 17:13 Potassium 4.1 mEq/L (3.5-5.1) 09/05/17 17:13 Chloride 103 mEq/L (98-107) 09/05/17 17:13 Carbon Dioxide 25.8 mEq/L (21.0-31.0) 09/05/17 17:13 Anion Gap 11.3 (7.0-16.0) 09/05/17 17:13 BUN 19 mg/dL (7-25) 09/05/17 17:13 Creatinine 0.7 mg/dL (0.6-1.2) 09/05/17 17:13 Est GFR ( Amer) > 60.0 ml/min (>90) 09/05/17 17:13 Est GFR (Non-Af Amer) > 60.0 ml/min 09/05/17 17:13 BUN/Creatinine Ratio 27.1 09/05/17 17:13 Glucose 85 mg/dL (70-105) 09/05/17 17:13 Calcium 9.4 mg/dL (8.6-10.3) 09/05/17 17:13 Total Bilirubin 0.2 mg/dL (0.3-1.0) L 09/05/17 17:13 AST 18 U/L (13-39) 09/05/17 17:13 ALT 29 U/L (7-52) 09/05/17 17:13 Alkaline Phosphatase 91 U/L (34-104) 09/05/17 17:13 Total Protein 7.0 gm/dL (6.0-8.3) 09/05/17 17:13 Albumin 3.8 gm/dL (3.7-5.3) 09/05/17 17:13 Globulin 3.2 gm/dL 09/05/17 17:13 Albumin/Globulin Ratio 1.2 (1.0-1.8) 09/05/17 17:13 Urine Source CLEAN C 09/05/17 17:50 Urine Color YELLOW 09/05/17 17:50 Urine Clarity CLEAR (CLEAR) 09/05/17 17:50 Urine pH 6.0 (4.6 - 8.0) 09/05/17 17:50 Ur Specific [place] 1.020 (1.005-1.030) 09/05/17 17:50 Urine Protein NEGATIVE mg/dL (NEGATIVE) 09/05/17 17:50 Urine Glucose (UA) NEGATIVE mg/dL (NEGATIVE) 09/05/17 17:50 Urine Ketones NEGATIVE mg/dL (NEGATIVE) 09/05/17 17:50 Urine Blood NEGATIVE (NEGATIVE) 09/05/17 17:50 Urine Nitrate NEGATIVE (NEGATIVE) 09/05/17 17:50 Urine Bilirubin NEGATIVE (NEGATIVE) 09/05/17 17:50 Urine Urobilinogen 0.2 E.U./dL (0.2 - 1.0) 09/05/17 17:50 Ur Leukocyte Esterase NEGATIVE (NEGATIVE) 09/05/17 17:50 Urine RBC NONE SEEN /hpf (0-5) 09/05/17 17:50 Urine WBC NONE SEEN /hpf (0-5) 09/05/17 17:50 Ur Epithelial Cells NONE SEEN /lpf (FEW) 09/05/17 17:50 Urine Bacteria NONE SEEN /hpf (NONE SEEN) 09/05/17 17:50 - Physical Exam Vitals and I&O: Vital Signs Temp 97.0 F 09/10/17 20:53 Pulse 82 09/10/17 20:53 Resp 20 09/10/17 20:53 BP 117/66 09/10/17 20:53 Pulse Ox 98 09/10/17 20:53 Intake & Output 09/10/17 09/10/17 09/11/17 06:59 18:59 06:59 Intake Total 1200 Balance 1200 Intake: Oral 1200 Other: # Voids 3 # Bowel Movements 0 Active Medications: Current Medications Acetaminophen (Tylenol) 650 mg PO Q4HR PRN PRN Reason: Mild Pain / Temp above 100 Stop: 11/04/17 21:49 Al Hydrox/Mg Hydrox/Simethicone (Maalox) 30 ml PO Q4HR PRN PRN Reason: GI DISTRESS Stop: 11/04/17 21:49 Aripiprazole (Abilify) 10 mg PO DAILY [facility]; Protocol Stop: 11/05/17 08:59 Last Admin: 09/10/17 09:01 Dose: 10 mg Aspirin (Aspirin Chewable) 81 mg PO DAILY [facility] Stop: 11/05/17 08:59 Last Admin: 09/10/17 09:01 Dose: 81 mg Bupropion HCl (Wellbutrin Xl) 300 mg PO DAILY [facility]; Protocol Stop: 11/05/17 08:59 Last Admin: 09/10/17 09:01 Dose: 300 mg Donepezil HCl (Aricept) 20 mg PO DAILY [facility] Stop: 11/05/17 08:59 Last Admin: 09/10/17 09:01 Dose: 20 mg Folic Acid (Folate) 1 mg PO DAILY [facility] Stop: 11/05/17 08:59 Last Admin: 09/10/17 09:02 Dose: 1 mg Lorazepam (Ativan) 0.5 mg PO Q4HR PRN; Protocol PRN Reason: anxiety/agitation Stop: 10/05/17 21:49 Last Admin: 09/08/17 21:09 Dose: 0.5 mg Magnesium Hydroxide (Milk Of Magnesia) 30 ml PO HS PRN PRN Reason: Constipation Memantine (Namenda) 10 mg PO BID [facility] Stop: 11/05/17 08:59 Last Admin: 09/10/17 16:51 Dose: 10 mg Multivitamins/Vitamin C (Theragran) 1 tab PO DAILY [facility] Stop: 11/05/17 08:59 Last Admin: 09/10/17 09:02 Dose: 1 tab Venlafaxine HCl (Effexor Xr) 300 mg PO DAILY [facility]; Protocol Stop: 11/05/17 08:59 Last Admin: 09/10/17 09:01 Dose: 300 mg Zolpidem Tartrate (Ambien) 5 mg PO HS PRN PRN Reason: Insomnia Stop: 11/05/17 04:41 Last Admin: 09/10/17 21:11 Dose: 5 mg General: Alert, No acute distress HEENT: Atraumatic, PERRLA, EOMI Neck: Supple, JVD Cardiovascular: Regular rate, Normal S1, Normal S2 Lungs: Clear to auscultation Abdomen: Bowel sounds, Soft Extremities: no Clubbing, no Cyanosis, no Edema Neurological: Normal gait, Normal speech Skin: no Rash Assessment/Plan - Assessment Assessment: Acute Psychosis with aggressive attitude Bipolar Disorder HTN Major Depression Generalized Weakness - Plan Plan: continue current treatment Nutritional Asmnt/Malnutr-PDOC - Dietary Evaluation Malnutrition Findings (Please click <Entered> for more info): Nutritional Asmnt/Malnutrition Start: 09/10/17 14: 01 Text: Status: Complete Freq: Protocol: Document 09/10/17 14:01 LCHENG (Rec: 09/10/17 14:06 [email or web address]) Nutritional Asmnt/Malnutrition Patient General Information Nutritional Screening Low Risk Diagnosis psychosis aggressive behavior Pertinent Medical Hx/Surgical Hx HTN, hyperlipidemia, dementia, psychosis, bipolar disorder, generalizaed muscle weakness Subjective Information Pt seen sitting in castro-chair at time of visit, confused, not able to communicate. Per EMR< PO intake 75-100% of meals. Current Diet Order/ Nutrition Support regular Pertinent Labs 09/04 nutrition labs WNL Nutritional Hx/Data Height 1.7 m Height (Calculated Centimeters) 170.2 Current Weight (lbs) 77.111 kg Weight (Calculated Kilograms) 77.1 Weight (Calculated Grams) 65424.7 [place] Body Weight 135 Body Mass Index (BMI) 26.6 Weight Status Overweight GI Symptoms GI Symptoms None Last BM 09/09 Difficult in: None Skin Integrity/Comment: dryness Current %PO Good (75-100%) Estimated Nutritional Goals BEE in Kcals: Using Current wt Calories/Kcals/Kg 23-27 Kcals Calculated 5706-2070 Protein: Using Current wt Protein g/k.8-1 Protein Calculated 62-77 Fluid: ml 1771-2079ml (1ml/kcal) Nutritional Problem No current Nutrition Prob Problem N/A Malnutrition Alert Is there a minimum of two criteria No selected? Query Text:Check all the applicable criteria. A minimum of two criteria are recommended for diagnosis of either severe or non-severe malnutrition. Malnutrition Related to Morbid Obesity Malnutrition related to morbid obesity No Intervention/Recommendation Comments 1. Continue with current diet as ordered. 2. Monitor PO intake, wt, labs and skin integrity 3. F/U as low risk in 7 days, 09/17 Expected Outcomes/Goals Expected Outcomes/Goals 1. PO intake to meet at least 75% of nutritional needs. 2. Wt stability, skin to remain intact, labs to approach WNL.
[2017-09-11] MEDS: buPROPion XL 150 mg T 24 H PO SCH (09:20)
[2017-09-11] MEDS: Multivitamin Tab PO SCH (09:21)
[2017-09-11] MEDS: Aspirin 81mg Chewable Tab PO SCH (09:22)
--- NOTE | 2017-09-12 02:20 | Progress Notes ---
DATE: 09/11/2017 Case was discussed with staff of the patient, reviewed records. The patient is responding to internal stimuli. The patient is unpredictable and impulsive. The patient continues to be unable to make safe plan for self-care. She has been refusing medication, but she managed taking this morning, she is still psychotic. When I talked to her, she said she was hearing voices, but when I asked what did they tell her where she was unable to be specific, unable to make safe plan for self-care, demented, confused. I will increasing Abilify to 15 mg a day. No side effects with the medication, no sedation, no nausea and no extrapyramidal symptoms. We will continue to work with the patient in group therapy, milieu therapy, and adjust the medication as needed. JOB# [id number]
--- NOTE | 2017-09-12 05:17 | General Progress Note ---
Subjective - Review of Systems Service Date: 09/12/17 Subjective: Awake, alert but confused VS T96.5 P89 BP 132/85 R20 Objective - Results Result Diagrams: 09/05/17 17:13 09/05/17 17:13 Recent Labs: Laboratory Last Values WBC 7.7 Th/cmm (4.8-10.8) 09/05/17 17:13 RBC 4.26 Mil/cmm (3.80-5.10) 09/05/17 17:13 Hgb 13.9 gm/dL (12-16) 09/05/17 17:13 Hct 40.9 % (41.0-60) L 09/05/17 17:13 MCV 96.1 fl (81-100) 09/05/17 17:13 MCH 32.5 pg (27.0-31.0) H 09/05/17 17:13 MCHC Differential 33.9 pg (28.0-36.0) 09/05/17 17:13 RDW 14.5 % (11.5-20.0) 09/05/17 17:13 Plt Count 327 Th/cmm (150-400) 09/05/17 17:13 MPV 7.8 fl 09/05/17 17:13 Neutrophils % 74.8 % (40.0-80.0) 09/05/17 17:13 Lymphocytes % 18.2 % (20.0-50.0) L 09/05/17 17:13 Monocytes % 5.0 % (2.0-10.0) 09/05/17 17:13 Eosinophils % 1.8 % (0.0-5.0) 09/05/17 17:13 Basophils % 0.2 % (0.0-2.0) 09/05/17 17:13 Sodium 136 mEq/L (136-145) 09/05/17 17:13 Potassium 4.1 mEq/L (3.5-5.1) 09/05/17 17:13 Chloride 103 mEq/L (98-107) 09/05/17 17:13 Carbon Dioxide 25.8 mEq/L (21.0-31.0) 09/05/17 17:13 Anion Gap 11.3 (7.0-16.0) 09/05/17 17:13 BUN 19 mg/dL (7-25) 09/05/17 17:13 Creatinine 0.7 mg/dL (0.6-1.2) 09/05/17 17:13 Est GFR ( Amer) > 60.0 ml/min (>90) 09/05/17 17:13 Est GFR (Non-Af Amer) > 60.0 ml/min 09/05/17 17:13 BUN/Creatinine Ratio 27.1 09/05/17 17:13 Glucose 85 mg/dL (70-105) 09/05/17 17:13 Calcium 9.4 mg/dL (8.6-10.3) 09/05/17 17:13 Total Bilirubin 0.2 mg/dL (0.3-1.0) L 09/05/17 17:13 AST 18 U/L (13-39) 09/05/17 17:13 ALT 29 U/L (7-52) 09/05/17 17:13 Alkaline Phosphatase 91 U/L (34-104) 09/05/17 17:13 Total Protein 7.0 gm/dL (6.0-8.3) 09/05/17 17:13 Albumin 3.8 gm/dL (3.7-5.3) 09/05/17 17:13 Globulin 3.2 gm/dL 09/05/17 17:13 Albumin/Globulin Ratio 1.2 (1.0-1.8) 09/05/17 17:13 Urine Source CLEAN C 09/05/17 17:50 Urine Color YELLOW 09/05/17 17:50 Urine Clarity CLEAR (CLEAR) 09/05/17 17:50 Urine pH 6.0 (4.6 - 8.0) 09/05/17 17:50 Ur Specific [place] 1.020 (1.005-1.030) 09/05/17 17:50 Urine Protein NEGATIVE mg/dL (NEGATIVE) 09/05/17 17:50 Urine Glucose (UA) NEGATIVE mg/dL (NEGATIVE) 09/05/17 17:50 Urine Ketones NEGATIVE mg/dL (NEGATIVE) 09/05/17 17:50 Urine Blood NEGATIVE (NEGATIVE) 09/05/17 17:50 Urine Nitrate NEGATIVE (NEGATIVE) 09/05/17 17:50 Urine Bilirubin NEGATIVE (NEGATIVE) 09/05/17 17:50 Urine Urobilinogen 0.2 E.U./dL (0.2 - 1.0) 09/05/17 17:50 Ur Leukocyte Esterase NEGATIVE (NEGATIVE) 09/05/17 17:50 Urine RBC NONE SEEN /hpf (0-5) 09/05/17 17:50 Urine WBC NONE SEEN /hpf (0-5) 09/05/17 17:50 Ur Epithelial Cells NONE SEEN /lpf (FEW) 09/05/17 17:50 Urine Bacteria NONE SEEN /hpf (NONE SEEN) 09/05/17 17:50 - Physical Exam Vitals and I&O: Vital Signs Temp 96.5 F 09/11/17 22:21 Pulse 89 09/11/17 22:21 Resp 20 09/11/17 22:21 BP 132/85 09/11/17 22:21 Pulse Ox 97 09/11/17 22:21 Intake & Output 09/11/17 09/11/17 09/12/17 06:59 18:59 06:59 Intake Total 1500 Balance 1500 Intake: Oral 1500 Other: # Voids 3 # Bowel Movements 0 Active Medications: Current Medications Acetaminophen (Tylenol) 650 mg PO Q4HR PRN PRN Reason: Mild Pain / Temp above 100 Stop: 11/04/17 21:49 Al Hydrox/Mg Hydrox/Simethicone (Maalox) 30 ml PO Q4HR PRN PRN Reason: GI DISTRESS Stop: 11/04/17 21:49 Aripiprazole (Abilify) 15 mg PO DAILY [facility]; Protocol Stop: 11/11/17 08:59 Aspirin (Aspirin Chewable) 81 mg PO DAILY [facility] Stop: 11/05/17 08:59 Last Admin: 09/11/17 09:22 Dose: 81 mg Bupropion HCl (Wellbutrin Xl) 300 mg PO DAILY [facility]; Protocol Stop: 11/05/17 08:59 Last Admin: 09/11/17 09:20 Dose: 300 mg Donepezil HCl (Aricept) 20 mg PO DAILY [facility] Stop: 11/05/17 08:59 Last Admin: 09/11/17 09:22 Dose: 20 mg Folic Acid (Folate) 1 mg PO DAILY [facility] Stop: 11/05/17 08:59 Last Admin: 09/11/17 09:21 Dose: 1 mg Lorazepam (Ativan) 0.5 mg PO Q4HR PRN; Protocol PRN Reason: anxiety/agitation Stop: 10/05/17 21:49 Last Admin: 09/11/17 20:46 Dose: 0.5 mg Magnesium Hydroxide (Milk Of Magnesia) 30 ml PO HS PRN PRN Reason: Constipation Memantine (Namenda) 10 mg PO BID [facility] Stop: 11/05/17 08:59 Last Admin: 09/11/17 17:41 Dose: 10 mg Multivitamins/Vitamin C (Theragran) 1 tab PO DAILY [facility] Stop: 11/05/17 08:59 Last Admin: 09/11/17 09:21 Dose: 1 tab Venlafaxine HCl (Effexor Xr) 300 mg PO DAILY [facility]; Protocol Stop: 11/05/17 08:59 Last Admin: 09/11/17 09:19 Dose: 300 mg Zolpidem Tartrate (Ambien) 5 mg PO HS PRN PRN Reason: Insomnia Stop: 11/05/17 04:41 Last Admin: 09/11/17 20:46 Dose: 5 mg General: Alert, No acute distress HEENT: Atraumatic, PERRLA, EOMI Neck: Supple, JVD Cardiovascular: Regular rate, Normal S1, Normal S2 Lungs: Clear to auscultation Abdomen: Bowel sounds, Soft Extremities: no Clubbing, no Cyanosis, no Edema Neurological: Normal gait, Normal speech Skin: no Rash Assessment/Plan - Assessment Assessment: Acute Psychosis with aggressive attitude Bipolar Disorder HTN Major Depression Generalized Weakness - Plan Plan: continue current treatment Nutritional Asmnt/Malnutr-PDOC - Dietary Evaluation Malnutrition Findings (Please click <Entered> for more info): Nutritional Asmnt/Malnutrition Start: 09/10/17 14: 01 Text: Status: Complete Freq: Protocol: Document 09/10/17 14:01 LCHENG (Rec: 09/10/17 14:06 [email or web address]) Nutritional Asmnt/Malnutrition Patient General Information Nutritional Screening Low Risk Diagnosis psychosis aggressive behavior Pertinent Medical Hx/Surgical Hx HTN, hyperlipidemia, dementia, psychosis, bipolar disorder, generalizaed muscle weakness Subjective Information Pt seen sitting in castro-chair at time of visit, confused, not able to communicate. Per EMR< PO intake 75-100% of meals. Current Diet Order/ Nutrition Support regular Pertinent Labs 09/04 nutrition labs WNL Nutritional Hx/Data Height 1.7 m Height (Calculated Centimeters) 170.2 Current Weight (lbs) 77.111 kg Weight (Calculated Kilograms) 77.1 Weight (Calculated Grams) 14463.7 [place] Body Weight 135 Body Mass Index (BMI) 26.6 Weight Status Overweight GI Symptoms GI Symptoms None Last BM 09/09 Difficult in: None Skin Integrity/Comment: dryness Current %PO Good (75-100%) Estimated Nutritional Goals BEE in Kcals: Using Current wt Calories/Kcals/Kg 23-27 Kcals Calculated 7622-9037 Protein: Using Current wt Protein g/k.8-1 Protein Calculated 62-77 Fluid: ml 1771-2079ml (1ml/kcal) Nutritional Problem No current Nutrition Prob Problem N/A Malnutrition Alert Is there a minimum of two criteria No selected? Query Text:Check all the applicable criteria. A minimum of two criteria are recommended for diagnosis of either severe or non-severe malnutrition. Malnutrition Related to Morbid Obesity Malnutrition related to morbid obesity No Intervention/Recommendation Comments 1. Continue with current diet as ordered. 2. Monitor PO intake, wt, labs and skin integrity 3. F/U as low risk in 7 days, 09/17 Expected Outcomes/Goals Expected Outcomes/Goals 1. PO intake to meet at least 75% of nutritional needs. 2. Wt stability, skin to remain intact, labs to approach WNL.
[2017-09-12] MEDS: Aspirin 81mg Chewable Tab PO SCH (09:06)
[2017-09-12] MEDS: Multivitamin Tab PO SCH (09:06)
[2017-09-12] MEDS: buPROPion XL 150 mg T 24 H PO SCH (09:06)
--- NOTE | 2017-09-13 07:36 | General Progress Note ---
Subjective - Review of Systems Service Date: 09/13/17 Subjective: Awake, alert but confused VS T97 P 94 BP 153/87 R 20 Objective - Results Result Diagrams: 09/05/17 17:13 09/05/17 17:13 Recent Labs: Laboratory Last Values WBC 7.7 Th/cmm (4.8-10.8) 09/05/17 17:13 RBC 4.26 Mil/cmm (3.80-5.10) 09/05/17 17:13 Hgb 13.9 gm/dL (12-16) 09/05/17 17:13 Hct 40.9 % (41.0-60) L 09/05/17 17:13 MCV 96.1 fl (81-100) 09/05/17 17:13 MCH 32.5 pg (27.0-31.0) H 09/05/17 17:13 MCHC Differential 33.9 pg (28.0-36.0) 09/05/17 17:13 RDW 14.5 % (11.5-20.0) 09/05/17 17:13 Plt Count 327 Th/cmm (150-400) 09/05/17 17:13 MPV 7.8 fl 09/05/17 17:13 Neutrophils % 74.8 % (40.0-80.0) 09/05/17 17:13 Lymphocytes % 18.2 % (20.0-50.0) L 09/05/17 17:13 Monocytes % 5.0 % (2.0-10.0) 09/05/17 17:13 Eosinophils % 1.8 % (0.0-5.0) 09/05/17 17:13 Basophils % 0.2 % (0.0-2.0) 09/05/17 17:13 Sodium 136 mEq/L (136-145) 09/05/17 17:13 Potassium 4.1 mEq/L (3.5-5.1) 09/05/17 17:13 Chloride 103 mEq/L (98-107) 09/05/17 17:13 Carbon Dioxide 25.8 mEq/L (21.0-31.0) 09/05/17 17:13 Anion Gap 11.3 (7.0-16.0) 09/05/17 17:13 BUN 19 mg/dL (7-25) 09/05/17 17:13 Creatinine 0.7 mg/dL (0.6-1.2) 09/05/17 17:13 Est GFR ( Amer) > 60.0 ml/min (>90) 09/05/17 17:13 Est GFR (Non-Af Amer) > 60.0 ml/min 09/05/17 17:13 BUN/Creatinine Ratio 27.1 09/05/17 17:13 Glucose 85 mg/dL (70-105) 09/05/17 17:13 Calcium 9.4 mg/dL (8.6-10.3) 09/05/17 17:13 Total Bilirubin 0.2 mg/dL (0.3-1.0) L 09/05/17 17:13 AST 18 U/L (13-39) 09/05/17 17:13 ALT 29 U/L (7-52) 09/05/17 17:13 Alkaline Phosphatase 91 U/L (34-104) 09/05/17 17:13 Total Protein 7.0 gm/dL (6.0-8.3) 09/05/17 17:13 Albumin 3.8 gm/dL (3.7-5.3) 09/05/17 17:13 Globulin 3.2 gm/dL 09/05/17 17:13 Albumin/Globulin Ratio 1.2 (1.0-1.8) 09/05/17 17:13 Urine Source CLEAN C 09/05/17 17:50 Urine Color YELLOW 09/05/17 17:50 Urine Clarity CLEAR (CLEAR) 09/05/17 17:50 Urine pH 6.0 (4.6 - 8.0) 09/05/17 17:50 Ur Specific [place] 1.020 (1.005-1.030) 09/05/17 17:50 Urine Protein NEGATIVE mg/dL (NEGATIVE) 09/05/17 17:50 Urine Glucose (UA) NEGATIVE mg/dL (NEGATIVE) 09/05/17 17:50 Urine Ketones NEGATIVE mg/dL (NEGATIVE) 09/05/17 17:50 Urine Blood NEGATIVE (NEGATIVE) 09/05/17 17:50 Urine Nitrate NEGATIVE (NEGATIVE) 09/05/17 17:50 Urine Bilirubin NEGATIVE (NEGATIVE) 09/05/17 17:50 Urine Urobilinogen 0.2 E.U./dL (0.2 - 1.0) 09/05/17 17:50 Ur Leukocyte Esterase NEGATIVE (NEGATIVE) 09/05/17 17:50 Urine RBC NONE SEEN /hpf (0-5) 09/05/17 17:50 Urine WBC NONE SEEN /hpf (0-5) 09/05/17 17:50 Ur Epithelial Cells NONE SEEN /lpf (FEW) 09/05/17 17:50 Urine Bacteria NONE SEEN /hpf (NONE SEEN) 09/05/17 17:50 - Physical Exam Vitals and I&O: Vital Signs Temp 97 F 09/12/17 14:00 Pulse 94 09/12/17 14:00 Resp 20 09/12/17 19:51 BP 153/87 09/12/17 14:00 Pulse Ox 98 09/12/17 14:00 Intake & Output 09/12/17 09/13/17 09/13/17 18:59 06:59 18:59 Intake Total 1200 Balance 1200 Intake: Oral 1200 Other: # Bowel Movements 1 Active Medications: Current Medications Acetaminophen (Tylenol) 650 mg PO Q4HR PRN PRN Reason: Mild Pain / Temp above 100 Stop: 11/04/17 21:49 Al Hydrox/Mg Hydrox/Simethicone (Maalox) 30 ml PO Q4HR PRN PRN Reason: GI DISTRESS Stop: 11/04/17 21:49 Aripiprazole (Abilify) 15 mg PO DAILY [facility]; Protocol Stop: 11/11/17 08:59 Last Admin: 09/12/17 09:07 Dose: 15 mg Aspirin (Aspirin Chewable) 81 mg PO DAILY [facility] Stop: 11/05/17 08:59 Last Admin: 09/12/17 09:06 Dose: 81 mg Bupropion HCl (Wellbutrin Xl) 300 mg PO DAILY [facility]; Protocol Stop: 11/05/17 08:59 Last Admin: 09/12/17 09:06 Dose: 300 mg Donepezil HCl (Aricept) 20 mg PO DAILY [facility] Stop: 11/05/17 08:59 Last Admin: 09/12/17 09:06 Dose: 20 mg Folic Acid (Folate) 1 mg PO DAILY [facility] Stop: 11/05/17 08:59 Last Admin: 09/12/17 09:06 Dose: 1 mg Lorazepam (Ativan) 0.5 mg PO Q4HR PRN; Protocol PRN Reason: anxiety/agitation Stop: 10/05/17 21:49 Last Admin: 09/11/17 20:46 Dose: 0.5 mg Magnesium Hydroxide (Milk Of Magnesia) 30 ml PO HS PRN PRN Reason: Constipation Memantine (Namenda) 10 mg PO BID [facility] Stop: 11/05/17 08:59 Last Admin: 09/12/17 17:31 Dose: 10 mg Multivitamins/Vitamin C (Theragran) 1 tab PO DAILY [facility] Stop: 11/05/17 08:59 Last Admin: 09/12/17 09:06 Dose: 1 tab Venlafaxine HCl (Effexor Xr) 300 mg PO DAILY [facility]; Protocol Stop: 11/05/17 08:59 Last Admin: 09/12/17 09:06 Dose: 300 mg Zolpidem Tartrate (Ambien) 5 mg PO HS PRN PRN Reason: Insomnia Stop: 11/05/17 04:41 Last Admin: 09/12/17 21:04 Dose: 5 mg General: Alert, No acute distress HEENT: Atraumatic, PERRLA, EOMI Neck: Supple, JVD Cardiovascular: Regular rate, Normal S1, Normal S2 Lungs: Clear to auscultation Abdomen: Bowel sounds, Soft Extremities: no Clubbing, no Cyanosis, no Edema Neurological: Normal gait, Normal speech Skin: no Rash Assessment/Plan - Assessment Assessment: Acute Psychosis with aggressive attitude Bipolar Disorder HTN Major Depression Generalized Weakness - Plan Plan: continue current treatment Nutritional Asmnt/Malnutr-PDOC - Dietary Evaluation Malnutrition Findings (Please click <Entered> for more info): Nutritional Asmnt/Malnutrition Start: 09/10/17 14: 01 Text: Status: Complete Freq: Protocol: Document 09/10/17 14:01 LCHENG (Rec: 09/10/17 14:06 [email or web address]) Nutritional Asmnt/Malnutrition Patient General Information Nutritional Screening Low Risk Diagnosis psychosis aggressive behavior Pertinent Medical Hx/Surgical Hx HTN, hyperlipidemia, dementia, psychosis, bipolar disorder, generalizaed muscle weakness Subjective Information Pt seen sitting in castro-chair at time of visit, confused, not able to communicate. Per EMR< PO intake 75-100% of meals. Current Diet Order/ Nutrition Support regular Pertinent Labs 09/04 nutrition labs WNL Nutritional Hx/Data Height 1.7 m Height (Calculated Centimeters) 170.2 Current Weight (lbs) 77.111 kg Weight (Calculated Kilograms) 77.1 Weight (Calculated Grams) 23194.7 [place] Body Weight 135 Body Mass Index (BMI) 26.6 Weight Status Overweight GI Symptoms GI Symptoms None Last BM 09/09 Difficult in: None Skin Integrity/Comment: dryness Current %PO Good (75-100%) Estimated Nutritional Goals BEE in Kcals: Using Current wt Calories/Kcals/Kg 23-27 Kcals Calculated 0278-9517 Protein: Using Current wt Protein g/k.8-1 Protein Calculated 62-77 Fluid: ml 1771-2079ml (1ml/kcal) Nutritional Problem No current Nutrition Prob Problem N/A Malnutrition Alert Is there a minimum of two criteria No selected? Query Text:Check all the applicable criteria. A minimum of two criteria are recommended for diagnosis of either severe or non-severe malnutrition. Malnutrition Related to Morbid Obesity Malnutrition related to morbid obesity No Intervention/Recommendation Comments 1. Continue with current diet as ordered. 2. Monitor PO intake, wt, labs and skin integrity 3. F/U as low risk in 7 days, 09/17 Expected Outcomes/Goals Expected Outcomes/Goals 1. PO intake to meet at least 75% of nutritional needs. 2. Wt stability, skin to remain intact, labs to approach WNL.
[2017-09-13] MEDS: Aspirin 81mg Chewable Tab PO SCH (09:41)
[2017-09-13] MEDS: Multivitamin Tab PO SCH (09:41)
[2017-09-13] MEDS: buPROPion XL 150 mg T 24 H PO SCH (09:41)
--- NOTE | 2017-09-13 18:57 | Progress Notes ---
DATE: 09/13/2017 SUBJECTIVE: Chart reviewed and the patient interviewed. Also discussed the patient's condition with the staff and reviewed records and labs. The patient is still confused and is still actively responding to stimuli. The patient also is still easily agitated. She also still has difficulty with compliance with medications and still at times refuses to take her medications, specifically Abilify and Aricept and Wellbutrin. Otherwise, the patient denies any side effects of medications when she takes them. ASSESSMENT: The patient is still depressed and irritable. TREATMENT PLAN: We will continue to monitor her behavior and her condition closely. Also, continue to monitor her behavior, especially with increasing aggression with hitting the doors. Also, continue to work on discharge plans. [facility]# [id number]
--- NOTE | 2017-09-14 07:01 | General Progress Note ---
Subjective - Review of Systems Service Date: 09/14/17 Subjective: Awake, alert but confused VS T97.8 P 72 BP 141/74 R 18 Objective - Results Result Diagrams: 09/05/17 17:13 09/05/17 17:13 Recent Labs: Laboratory Last Values WBC 7.7 Th/cmm (4.8-10.8) 09/05/17 17:13 RBC 4.26 Mil/cmm (3.80-5.10) 09/05/17 17:13 Hgb 13.9 gm/dL (12-16) 09/05/17 17:13 Hct 40.9 % (41.0-60) L 09/05/17 17:13 MCV 96.1 fl (81-100) 09/05/17 17:13 MCH 32.5 pg (27.0-31.0) H 09/05/17 17:13 MCHC Differential 33.9 pg (28.0-36.0) 09/05/17 17:13 RDW 14.5 % (11.5-20.0) 09/05/17 17:13 Plt Count 327 Th/cmm (150-400) 09/05/17 17:13 MPV 7.8 fl 09/05/17 17:13 Neutrophils % 74.8 % (40.0-80.0) 09/05/17 17:13 Lymphocytes % 18.2 % (20.0-50.0) L 09/05/17 17:13 Monocytes % 5.0 % (2.0-10.0) 09/05/17 17:13 Eosinophils % 1.8 % (0.0-5.0) 09/05/17 17:13 Basophils % 0.2 % (0.0-2.0) 09/05/17 17:13 Sodium 136 mEq/L (136-145) 09/05/17 17:13 Potassium 4.1 mEq/L (3.5-5.1) 09/05/17 17:13 Chloride 103 mEq/L (98-107) 09/05/17 17:13 Carbon Dioxide 25.8 mEq/L (21.0-31.0) 09/05/17 17:13 Anion Gap 11.3 (7.0-16.0) 09/05/17 17:13 BUN 19 mg/dL (7-25) 09/05/17 17:13 Creatinine 0.7 mg/dL (0.6-1.2) 09/05/17 17:13 Est GFR ( Amer) > 60.0 ml/min (>90) 09/05/17 17:13 Est GFR (Non-Af Amer) > 60.0 ml/min 09/05/17 17:13 BUN/Creatinine Ratio 27.1 09/05/17 17:13 Glucose 85 mg/dL (70-105) 09/05/17 17:13 Calcium 9.4 mg/dL (8.6-10.3) 09/05/17 17:13 Total Bilirubin 0.2 mg/dL (0.3-1.0) L 09/05/17 17:13 AST 18 U/L (13-39) 09/05/17 17:13 ALT 29 U/L (7-52) 09/05/17 17:13 Alkaline Phosphatase 91 U/L (34-104) 09/05/17 17:13 Total Protein 7.0 gm/dL (6.0-8.3) 09/05/17 17:13 Albumin 3.8 gm/dL (3.7-5.3) 09/05/17 17:13 Globulin 3.2 gm/dL 09/05/17 17:13 Albumin/Globulin Ratio 1.2 (1.0-1.8) 09/05/17 17:13 Urine Source CLEAN C 09/05/17 17:50 Urine Color YELLOW 09/05/17 17:50 Urine Clarity CLEAR (CLEAR) 09/05/17 17:50 Urine pH 6.0 (4.6 - 8.0) 09/05/17 17:50 Ur Specific [place] 1.020 (1.005-1.030) 09/05/17 17:50 Urine Protein NEGATIVE mg/dL (NEGATIVE) 09/05/17 17:50 Urine Glucose (UA) NEGATIVE mg/dL (NEGATIVE) 09/05/17 17:50 Urine Ketones NEGATIVE mg/dL (NEGATIVE) 09/05/17 17:50 Urine Blood NEGATIVE (NEGATIVE) 09/05/17 17:50 Urine Nitrate NEGATIVE (NEGATIVE) 09/05/17 17:50 Urine Bilirubin NEGATIVE (NEGATIVE) 09/05/17 17:50 Urine Urobilinogen 0.2 E.U./dL (0.2 - 1.0) 09/05/17 17:50 Ur Leukocyte Esterase NEGATIVE (NEGATIVE) 09/05/17 17:50 Urine RBC NONE SEEN /hpf (0-5) 09/05/17 17:50 Urine WBC NONE SEEN /hpf (0-5) 09/05/17 17:50 Ur Epithelial Cells NONE SEEN /lpf (FEW) 09/05/17 17:50 Urine Bacteria NONE SEEN /hpf (NONE SEEN) 09/05/17 17:50 - Physical Exam Vitals and I&O: Vital Signs Temp 97.8 F 09/14/17 06:35 Pulse 72 09/14/17 06:35 Resp 18 09/14/17 06:35 BP 141/74 09/14/17 06:35 Pulse Ox 97 09/14/17 06:35 Intake & Output 09/13/17 09/14/17 09/14/17 18:59 06:59 18:59 Intake Total 1200 180 Balance 1200 180 Weight (lbs) 77.111 kg Intake: Oral 1200 180 Other: # Voids 4 3 # Bowel Movements 0 Weight Source Bedscale Active Medications: Current Medications Acetaminophen (Tylenol) 650 mg PO Q4HR PRN PRN Reason: Mild Pain / Temp above 100 Stop: 11/04/17 21:49 Al Hydrox/Mg Hydrox/Simethicone (Maalox) 30 ml PO Q4HR PRN PRN Reason: GI DISTRESS Stop: 11/04/17 21:49 Aripiprazole (Abilify) 15 mg PO DAILY [facility]; Protocol Stop: 11/11/17 08:59 Last Admin: 09/13/17 09:41 Dose: 15 mg Aspirin (Aspirin Chewable) 81 mg PO DAILY [facility] Stop: 11/05/17 08:59 Last Admin: 09/13/17 09:41 Dose: 81 mg Bupropion HCl (Wellbutrin Xl) 300 mg PO DAILY [facility]; Protocol Stop: 11/05/17 08:59 Last Admin: 09/13/17 09:41 Dose: 300 mg Donepezil HCl (Aricept) 20 mg PO DAILY [facility] Stop: 11/05/17 08:59 Last Admin: 09/13/17 09:41 Dose: 20 mg Folic Acid (Folate) 1 mg PO DAILY [facility] Stop: 09/13/18 08:59 Last Admin: 09/13/17 09:41 Dose: 1 mg Magnesium Hydroxide (Milk Of Magnesia) 30 ml PO HS PRN PRN Reason: Constipation Memantine (Namenda) 10 mg PO BID [facility] Stop: 11/05/17 08:59 Last Admin: 09/13/17 18:45 Dose: Not Given Multivitamins/Vitamin C (Theragran) 1 tab PO DAILY [facility] Stop: 11/05/17 08:59 Last Admin: 09/13/17 09:41 Dose: 1 tab Venlafaxine HCl (Effexor Xr) 300 mg PO DAILY [facility]; Protocol Stop: 11/05/17 08:59 Last Admin: 09/13/17 09:41 Dose: 300 mg General: Alert, No acute distress HEENT: Atraumatic, PERRLA, EOMI Neck: Supple, JVD Cardiovascular: Regular rate, Normal S1, Normal S2 Lungs: Clear to auscultation Abdomen: Bowel sounds, Soft Extremities: no Clubbing, no Cyanosis, no Edema Neurological: Normal gait, Normal speech Skin: no Rash Assessment/Plan - Assessment Assessment: Acute Psychosis with aggressive attitude Bipolar Disorder HTN Major Depression Generalized Weakness - Plan Plan: continue current treatment Nutritional Asmnt/Malnutr-PDOC - Dietary Evaluation Malnutrition Findings (Please click <Entered> for more info): Nutritional Asmnt/Malnutrition Start: 09/10/17 14: 01 Text: Status: Complete Freq: Protocol: Document 09/10/17 14:01 LCHENG (Rec: 09/10/17 14:06 LCHENG [email or web address]) Nutritional Asmnt/Malnutrition Patient General Information Nutritional Screening Low Risk Diagnosis psychosis aggressive behavior Pertinent Medical Hx/Surgical Hx HTN, hyperlipidemia, dementia, psychosis, bipolar disorder, generalizaed muscle weakness Subjective Information Pt seen sitting in castro-chair at time of visit, confused, not able to communicate. Per EMR< PO intake 75-100% of meals. Current Diet Order/ Nutrition Support regular Pertinent Labs 09/04 nutrition labs WNL Nutritional Hx/Data Height 1.7 m Height (Calculated Centimeters) 170.2 Current Weight (lbs) 77.111 kg Weight (Calculated Kilograms) 77.1 Weight (Calculated Grams) 16680.7 [place] Body Weight 135 Body Mass Index (BMI) 26.6 Weight Status Overweight GI Symptoms GI Symptoms None Last BM 7/18 Difficult in: None Skin Integrity/Comment: dryness Current %PO Good (75-100%) Estimated Nutritional Goals BEE in Kcals: Using Current wt Calories/Kcals/Kg 23-27 Kcals Calculated 0163-7777 Protein: Using Current wt Protein g/k.8-1 Protein Calculated 62-77 Fluid: ml 1771-2078ml (1ml/kcal) Nutritional Problem No current Nutrition Prob Problem N/A Malnutrition Alert Is there a minimum of two criteria No selected? Query Text:Check all the applicable criteria. A minimum of two criteria are recommended for diagnosis of either severe or non-severe malnutrition. Malnutrition Related to Morbid Obesity Malnutrition related to morbid obesity No Intervention/Recommendation Comments 1. Continue with current diet as ordered. 2. Monitor PO intake, wt, labs and skin integrity 3. F/U as low risk in 7 days, 09/17 Expected Outcomes/Goals Expected Outcomes/Goals 1. PO intake to meet at least 75% of nutritional needs. 2. Wt stability, skin to remain intact, labs to approach WNL.
[2017-09-14] MEDS: Multivitamin Tab PO SCH (09:40)
[2017-09-14] MEDS: buPROPion XL 150 mg T 24 H PO SCH (09:40)
[2017-09-14] MEDS: Aspirin 81mg Chewable Tab PO SCH (09:40)
--- NOTE | 2017-09-14 11:06 | Progress Notes ---
DATE: 09/12/[address] Castellanos. SUBJECTIVE: The patient was interviewed. Case was discussed with staff, and chart reviewed. Per the staff, the patient has been walking around. She has been disorganized. She has been mumbling to herself. She is unpredictable and easily irritable. The patient was interviewed this morning in the [facility] hallway. The patient is pacing the unit. She is speaking in a coherent manner. She is unable to engage appropriately with the interview as her speech is very disorganized and incoherent. She is mumbling to herself. She bumps into this provider intentionally and continues to walk. MENTAL STATUS EXAMINATION: The patient appears unkempt. She appears to have poor eye contact. She is poorly engaged with the interview. Her speech is soft, mumbled and coherent. Mood and affect appear to be labile. Her thought process is disorganized at this time. Unable to assess suicidal or homicidal ideations, but she is hostile and she is intentionally bumping into the provider. She seems to be responding only to internal stimuli. She is talking to herself. In addition, she does appear to be paranoid of others. She is alert and oriented to person, otherwise unable to assess her insight judgment and impulse control, remain very poor. ASSESSMENT: This is a 62-year-old female admitted to [facility] unit. The patient at this time continues to remain psychotic. She continues to remain aggressive. She is bumping into this provider. She is not making any sense and she is responding heavily to internal stimuli. PLAN: We will continue the patient on acute hospitalization. Continue medications as prescribed. We will encourage the patient to verbalize her needs. Encourage the patient to participate in group and milieu therapy, encourage the patient to work with the social work and bottle caser for discharge planning and need for any community resources. JOB# [id number] PIA
--- NOTE | 2017-09-14 22:50 | Progress Notes ---
DATE: 09/14/2017 SUBJECTIVE: Case was discussed with staff of the patient, reviewed records. The patient continues to be confused, continues to be unpredictable, impulsive, needing redirection. Continues to have poor insight about the whole process, tolerates the increase in Abilify on the 09/12/2017 to 50 mg a day with no side effects, no sedation, no nausea, no extrapyramidal symptoms, acting out. Continues to have episodes where she is acting out and we will continue to work with the patient in group therapy, milieu therapy, adjust medication as needed. JOB# [id number]
--- NOTE | 2017-09-15 06:06 | General Progress Note ---
Subjective - Review of Systems Service Date: 09/15/17 Subjective: Awake, alert but confused VS T97.8 P 72 BP 141/74 R 18 Objective - Results Result Diagrams: 09/05/17 17:13 09/05/17 17:13 Recent Labs: Laboratory Last Values WBC 7.7 Th/cmm (4.8-10.8) 09/05/17 17:13 RBC 4.26 Mil/cmm (3.80-5.10) 09/05/17 17:13 Hgb 13.9 gm/dL (12-16) 09/05/17 17:13 Hct 40.9 % (41.0-60) L 09/05/17 17:13 MCV 96.1 fl (81-100) 09/05/17 17:13 MCH 32.5 pg (27.0-31.0) H 09/05/17 17:13 MCHC Differential 33.9 pg (28.0-36.0) 09/05/17 17:13 RDW 14.5 % (11.5-20.0) 09/05/17 17:13 Plt Count 327 Th/cmm (150-400) 09/05/17 17:13 MPV 7.8 fl 09/05/17 17:13 Neutrophils % 74.8 % (40.0-80.0) 09/05/17 17:13 Lymphocytes % 18.2 % (20.0-50.0) L 09/05/17 17:13 Monocytes % 5.0 % (2.0-10.0) 09/05/17 17:13 Eosinophils % 1.8 % (0.0-5.0) 09/05/17 17:13 Basophils % 0.2 % (0.0-2.0) 09/05/17 17:13 Sodium 136 mEq/L (136-145) 09/05/17 17:13 Potassium 4.1 mEq/L (3.5-5.1) 09/05/17 17:13 Chloride 103 mEq/L (98-107) 09/05/17 17:13 Carbon Dioxide 25.8 mEq/L (21.0-31.0) 09/05/17 17:13 Anion Gap 11.3 (7.0-16.0) 09/05/17 17:13 BUN 19 mg/dL (7-25) 09/05/17 17:13 Creatinine 0.7 mg/dL (0.6-1.2) 09/05/17 17:13 Est GFR ( Amer) > 60.0 ml/min (>90) 09/05/17 17:13 Est GFR (Non-Af Amer) > 60.0 ml/min 09/05/17 17:13 BUN/Creatinine Ratio 27.1 09/05/17 17:13 Glucose 85 mg/dL (70-105) 09/05/17 17:13 Calcium 9.4 mg/dL (8.6-10.3) 09/05/17 17:13 Total Bilirubin 0.2 mg/dL (0.3-1.0) L 09/05/17 17:13 AST 18 U/L (13-39) 09/05/17 17:13 ALT 29 U/L (7-52) 09/05/17 17:13 Alkaline Phosphatase 91 U/L (34-104) 09/05/17 17:13 Total Protein 7.0 gm/dL (6.0-8.3) 09/05/17 17:13 Albumin 3.8 gm/dL (3.7-5.3) 09/05/17 17:13 Globulin 3.2 gm/dL 09/05/17 17:13 Albumin/Globulin Ratio 1.2 (1.0-1.8) 09/05/17 17:13 Urine Source CLEAN C 09/05/17 17:50 Urine Color YELLOW 09/05/17 17:50 Urine Clarity CLEAR (CLEAR) 09/05/17 17:50 Urine pH 6.0 (4.6 - 8.0) 09/05/17 17:50 Ur Specific [place] 1.020 (1.005-1.030) 09/05/17 17:50 Urine Protein NEGATIVE mg/dL (NEGATIVE) 09/05/17 17:50 Urine Glucose (UA) NEGATIVE mg/dL (NEGATIVE) 09/05/17 17:50 Urine Ketones NEGATIVE mg/dL (NEGATIVE) 09/05/17 17:50 Urine Blood NEGATIVE (NEGATIVE) 09/05/17 17:50 Urine Nitrate NEGATIVE (NEGATIVE) 09/05/17 17:50 Urine Bilirubin NEGATIVE (NEGATIVE) 09/05/17 17:50 Urine Urobilinogen 0.2 E.U./dL (0.2 - 1.0) 09/05/17 17:50 Ur Leukocyte Esterase NEGATIVE (NEGATIVE) 09/05/17 17:50 Urine RBC NONE SEEN /hpf (0-5) 09/05/17 17:50 Urine WBC NONE SEEN /hpf (0-5) 09/05/17 17:50 Ur Epithelial Cells NONE SEEN /lpf (FEW) 09/05/17 17:50 Urine Bacteria NONE SEEN /hpf (NONE SEEN) 09/05/17 17:50 - Physical Exam Vitals and I&O: Vital Signs Temp 97.8 F 09/14/17 06:35 Pulse 72 09/14/17 06:35 Resp 20 09/14/17 20:00 BP 141/74 09/14/17 06:35 Pulse Ox 97 09/14/17 06:35 Intake & Output 09/14/17 09/14/17 09/15/17 06:59 18:59 06:59 Intake Total 180 1400 180 Balance 180 1400 180 Weight (lbs) 77.111 kg Intake: Oral 180 1400 180 Other: # Voids 3 3 2 # Bowel Movements 0 0 0 Weight Source Bedscale Active Medications: Current Medications Acetaminophen (Tylenol) 650 mg PO Q4HR PRN PRN Reason: Mild Pain / Temp above 100 Stop: 11/04/17 21:49 Al Hydrox/Mg Hydrox/Simethicone (Maalox) 30 ml PO Q4HR PRN PRN Reason: GI DISTRESS Stop: 11/04/17 21:49 Aripiprazole (Abilify) 15 mg PO DAILY [facility]; Protocol Stop: 11/11/17 08:59 Last Admin: 09/14/17 09:40 Dose: 15 mg Aspirin (Aspirin Chewable) 81 mg PO DAILY [facility] Stop: 11/05/17 08:59 Last Admin: 09/14/17 09:40 Dose: Not Given Bupropion HCl (Wellbutrin Xl) 300 mg PO DAILY [facility]; Protocol Stop: 11/05/17 08:59 Last Admin: 09/14/17 09:40 Dose: 300 mg Donepezil HCl (Aricept) 20 mg PO DAILY [facility] Stop: 11/05/17 08:59 Last Admin: 09/14/17 09:40 Dose: 20 mg Folic Acid (Folate) 1 mg PO DAILY [facility] Stop: 11/05/17 08:59 Last Admin: 09/14/17 09:40 Dose: Not Given Magnesium Hydroxide (Milk Of Magnesia) 30 ml PO HS PRN PRN Reason: Constipation Memantine (Namenda) 10 mg PO BID [facility] Stop: 11/05/17 08:59 Last Admin: 09/14/17 16:52 Dose: 10 mg Multivitamins/Vitamin C (Theragran) 1 tab PO DAILY [facility] Stop: 11/05/17 08:59 Last Admin: 09/14/17 09:40 Dose: Not Given Venlafaxine HCl (Effexor Xr) 300 mg PO DAILY [facility]; Protocol Stop: 11/05/17 08:59 Last Admin: 09/14/17 09:40 Dose: 300 mg General: Alert, No acute distress HEENT: Atraumatic, PERRLA, EOMI Neck: Supple, JVD Cardiovascular: Regular rate, Normal S1, Normal S2 Lungs: Clear to auscultation Abdomen: Bowel sounds, Soft Extremities: no Clubbing, no Cyanosis, no Edema Neurological: Normal gait, Normal speech Skin: no Rash Assessment/Plan - Assessment Assessment: Acute Psychosis with aggressive attitude Bipolar Disorder HTN Major Depression Generalized Weakness - Plan Plan: continue current treatment Nutritional Asmnt/Malnutr-PDOC - Dietary Evaluation Malnutrition Findings (Please click <Entered> for more info): Nutritional Asmnt/Malnutrition Start: 09/10/17 14: 01 Text: Status: Complete Freq: Protocol: Document 09/10/17 14:01 LCHENG (Rec: 09/10/17 14:06 [email or web address]) Nutritional Asmnt/Malnutrition Patient General Information Nutritional Screening Low Risk Diagnosis psychosis aggressive behavior Pertinent Medical Hx/Surgical Hx HTN, hyperlipidemia, dementia, psychosis, bipolar disorder, generalizaed muscle weakness Subjective Information Pt seen sitting in castro-chair at time of visit, confused, not able to communicate. Per EMR< PO intake 75-100% of meals. Current Diet Order/ Nutrition Support regular Pertinent Labs 09/04 nutrition labs WNL Nutritional Hx/Data Height 1.7 m Height (Calculated Centimeters) 170.2 Current Weight (lbs) 77.111 kg Weight (Calculated Kilograms) 77.1 Weight (Calculated Grams) 81493.7 [place] Body Weight 135 Body Mass Index (BMI) 26.6 Weight Status Overweight GI Symptoms GI Symptoms None Last BM 09/09 Difficult in: None Skin Integrity/Comment: dryness Current %PO Good (75-100%) Estimated Nutritional Goals BEE in Kcals: Using Current wt Calories/Kcals/Kg 23-27 Kcals Calculated 2556-0699 Protein: Using Current wt Protein g/k.8-1 Protein Calculated 62-77 Fluid: ml 1771-9ml (1ml/kcal) Nutritional Problem No current Nutrition Prob Problem N/A Malnutrition Alert Is there a minimum of two criteria No selected? Query Text:Check all the applicable criteria. A minimum of two criteria are recommended for diagnosis of either severe or non-severe malnutrition. Malnutrition Related to Morbid Obesity Malnutrition related to morbid obesity No Intervention/Recommendation Comments 1. Continue with current diet as ordered. 2. Monitor PO intake, wt, labs and skin integrity 3. F/U as low risk in 7 days, 09/17 Expected Outcomes/Goals Expected Outcomes/Goals 1. PO intake to meet at least 75% of nutritional needs. 2. Wt stability, skin to remain intact, labs to approach WNL.
[2017-09-15] MEDS: buPROPion XL 150 mg T 24 H PO SCH (08:22)
[2017-09-15] MEDS: Aspirin 81mg Chewable Tab PO SCH (08:22)
[2017-09-15] MEDS: Multivitamin Tab PO SCH (08:22)
--- NOTE | 2017-09-15 20:20 | Progress Notes ---
DATE: 09/15/2017 Case was discussed with staff of the patient, reviewed records. The patient continues to be psychotic, responding to internal stimuli. Continues to be disorganized, looking disheveled and unable to make safe plan for self-care. She is sleeping better, eating better. No side effects to the medication, no sedation, no nausea, no extrapyramidal symptoms. We will continue outpatient group therapy, milieu therapy and adjust medications as needed. [facility]# [id number]
--- NOTE | 2017-09-16 06:13 | General Progress Note ---
Subjective - Review of Systems Service Date: 09/16/17 Subjective: Awake, alert but confused VS T97.8 P 72 BP 141/74 R 18 Objective - Results Result Diagrams: 09/05/17 17:13 09/05/17 17:13 Recent Labs: Laboratory Last Values WBC 7.7 Th/cmm (4.8-10.8) 09/05/17 17:13 RBC 4.26 Mil/cmm (3.80-5.10) 09/05/17 17:13 Hgb 13.9 gm/dL (12-16) 09/05/17 17:13 Hct 40.9 % (41.0-60) L 09/05/17 17:13 MCV 96.1 fl (81-100) 09/05/17 17:13 MCH 32.5 pg (27.0-31.0) H 09/05/17 17:13 MCHC Differential 33.9 pg (28.0-36.0) 09/05/17 17:13 RDW 14.5 % (11.5-20.0) 09/05/17 17:13 Plt Count 327 Th/cmm (150-400) 09/05/17 17:13 MPV 7.8 fl 09/05/17 17:13 Neutrophils % 74.8 % (40.0-80.0) 09/05/17 17:13 Lymphocytes % 18.2 % (20.0-50.0) L 09/05/17 17:13 Monocytes % 5.0 % (2.0-10.0) 09/05/17 17:13 Eosinophils % 1.8 % (0.0-5.0) 09/05/17 17:13 Basophils % 0.2 % (0.0-2.0) 09/05/17 17:13 Sodium 136 mEq/L (136-145) 09/05/17 17:13 Potassium 4.1 mEq/L (3.5-5.1) 09/05/17 17:13 Chloride 103 mEq/L (98-107) 09/05/17 17:13 Carbon Dioxide 25.8 mEq/L (21.0-31.0) 09/05/17 17:13 Anion Gap 11.3 (7.0-16.0) 09/05/17 17:13 BUN 19 mg/dL (7-25) 09/05/17 17:13 Creatinine 0.7 mg/dL (0.6-1.2) 09/05/17 17:13 Est GFR ( Amer) > 60.0 ml/min (>90) 09/05/17 17:13 Est GFR (Non-Af Amer) > 60.0 ml/min 09/05/17 17:13 BUN/Creatinine Ratio 27.1 09/05/17 17:13 Glucose 85 mg/dL (70-105) 09/05/17 17:13 Calcium 9.4 mg/dL (8.6-10.3) 09/05/17 17:13 Total Bilirubin 0.2 mg/dL (0.3-1.0) L 09/05/17 17:13 AST 18 U/L (13-39) 09/05/17 17:13 ALT 29 U/L (7-52) 09/05/17 17:13 Alkaline Phosphatase 91 U/L (34-104) 09/05/17 17:13 Total Protein 7.0 gm/dL (6.0-8.3) 09/05/17 17:13 Albumin 3.8 gm/dL (3.7-5.3) 09/05/17 17:13 Globulin 3.2 gm/dL 09/05/17 17:13 Albumin/Globulin Ratio 1.2 (1.0-1.8) 09/05/17 17:13 Urine Source CLEAN C 09/05/17 17:50 Urine Color YELLOW 09/05/17 17:50 Urine Clarity CLEAR (CLEAR) 09/05/17 17:50 Urine pH 6.0 (4.6 - 8.0) 09/05/17 17:50 Ur Specific [place] 1.020 (1.005-1.030) 09/05/17 17:50 Urine Protein NEGATIVE mg/dL (NEGATIVE) 09/05/17 17:50 Urine Glucose (UA) NEGATIVE mg/dL (NEGATIVE) 09/05/17 17:50 Urine Ketones NEGATIVE mg/dL (NEGATIVE) 09/05/17 17:50 Urine Blood NEGATIVE (NEGATIVE) 09/05/17 17:50 Urine Nitrate NEGATIVE (NEGATIVE) 09/05/17 17:50 Urine Bilirubin NEGATIVE (NEGATIVE) 09/05/17 17:50 Urine Urobilinogen 0.2 E.U./dL (0.2 - 1.0) 09/05/17 17:50 Ur Leukocyte Esterase NEGATIVE (NEGATIVE) 09/05/17 17:50 Urine RBC NONE SEEN /hpf (0-5) 09/05/17 17:50 Urine WBC NONE SEEN /hpf (0-5) 09/05/17 17:50 Ur Epithelial Cells NONE SEEN /lpf (FEW) 09/05/17 17:50 Urine Bacteria NONE SEEN /hpf (NONE SEEN) 09/05/17 17:50 - Physical Exam Vitals and I&O: Vital Signs Temp 98.2 F 09/15/17 06:30 Pulse 68 09/15/17 06:30 Resp 18 09/15/17 06:30 BP 118/76 09/15/17 06:30 Pulse Ox 100 09/15/17 06:30 Intake & Output 09/15/17 09/15/17 09/16/17 06:59 18:59 06:59 Intake Total 180 1400 Balance 180 1400 Weight (lbs) 77.111 kg Intake: Oral 180 1400 Other: # Voids 3 4 # Bowel Movements 0 0 Weight Source Bedscale Active Medications: Current Medications Acetaminophen (Tylenol) 650 mg PO Q4HR PRN PRN Reason: Mild Pain / Temp above 100 Stop: 11/04/17 21:49 Al Hydrox/Mg Hydrox/Simethicone (Maalox) 30 ml PO Q4HR PRN PRN Reason: GI DISTRESS Stop: 11/04/17 21:49 Aripiprazole (Abilify) 15 mg PO DAILY [facility]; Protocol Stop: 11/11/17 08:59 Last Admin: 09/15/17 08:22 Dose: 15 mg Aspirin (Aspirin Chewable) 81 mg PO DAILY [facility] Stop: 11/05/17 08:59 Last Admin: 09/15/17 08:22 Dose: 81 mg Bupropion HCl (Wellbutrin Xl) 300 mg PO DAILY [facility]; Protocol Stop: 11/05/17 08:59 Last Admin: 09/15/17 08:22 Dose: 300 mg Donepezil HCl (Aricept) 20 mg PO DAILY [facility] Stop: 11/05/17 08:59 Last Admin: 09/15/17 08:22 Dose: 20 mg Folic Acid (Folate) 1 mg PO DAILY [facility] Stop: 11/05/17 08:59 Last Admin: 09/15/17 08:22 Dose: 1 mg Magnesium Hydroxide (Milk Of Magnesia) 30 ml PO HS PRN PRN Reason: Constipation Memantine (Namenda) 10 mg PO BID [facility] Stop: 11/05/17 08:59 Last Admin: 09/15/17 17:19 Dose: 10 mg Multivitamins/Vitamin C (Theragran) 1 tab PO DAILY [facility] Stop: 11/05/17 08:59 Last Admin: 09/15/17 08:22 Dose: 1 tab Venlafaxine HCl (Effexor Xr) 300 mg PO DAILY [facility]; Protocol Stop: 11/05/17 08:59 Last Admin: 09/15/17 08:22 Dose: 300 mg General: Alert, No acute distress HEENT: Atraumatic, PERRLA, EOMI Neck: Supple, JVD Cardiovascular: Regular rate, Normal S1, Normal S2 Lungs: Clear to auscultation Abdomen: Bowel sounds, Soft Extremities: no Clubbing, no Cyanosis, no Edema Neurological: Normal gait, Normal speech Skin: no Rash Assessment/Plan - Assessment Assessment: Acute Psychosis with aggressive attitude Bipolar Disorder HTN Major Depression Generalized Weakness - Plan Plan: continue current treatment Nutritional Asmnt/Malnutr-PDOC - Dietary Evaluation Malnutrition Findings (Please click <Entered> for more info): Nutritional Asmnt/Malnutrition Start: 09/10/17 14: 01 Text: Status: Complete Freq: Protocol: Document 09/10/17 14:01 LCHENG (Rec: 09/10/17 14:06 LCHENG [email or web address]) Nutritional Asmnt/Malnutrition Patient General Information Nutritional Screening Low Risk Diagnosis psychosis aggressive behavior Pertinent Medical Hx/Surgical Hx HTN, hyperlipidemia, dementia, psychosis, bipolar disorder, generalizaed muscle weakness Subjective Information Pt seen sitting in castro-chair at time of visit, confused, not able to communicate. Per EMR< PO intake 75-100% of meals. Current Diet Order/ Nutrition Support regular Pertinent Labs 09/04 nutrition labs WNL Nutritional Hx/Data Height 1.7 m Height (Calculated Centimeters) 170.2 Current Weight (lbs) 77.111 kg Weight (Calculated Kilograms) 77.1 Weight (Calculated Grams) 01376.7 Nixon Body Weight 135 Body Mass Index (BMI) 26.6 Weight Status Overweight GI Symptoms GI Symptoms None Last BM 09/09 Difficult in: None Skin Integrity/Comment: dryness Current %PO Good (75-100%) Estimated Nutritional Goals BEE in Kcals: Using Current wt Calories/Kcals/Kg 23-27 Kcals Calculated 0098-6724 Protein: Using Current wt Protein g/k.8-1 Protein Calculated 62-77 Fluid: ml 1771-2078ml (1ml/kcal) Nutritional Problem No current Nutrition Prob Problem N/A Malnutrition Alert Is there a minimum of two criteria No selected? Query Text:Check all the applicable criteria. A minimum of two criteria are recommended for diagnosis of either severe or non-severe malnutrition. Malnutrition Related to Morbid Obesity Malnutrition related to morbid obesity No Intervention/Recommendation Comments 1. Continue with current diet as ordered. 2. Monitor PO intake, wt, labs and skin integrity 3. F/U as low risk in 7 days, 09/17 Expected Outcomes/Goals Expected Outcomes/Goals 1. PO intake to meet at least 75% of nutritional needs. 2. Wt stability, skin to remain intact, labs to approach WNL.
[2017-09-16] MEDS: buPROPion XL 150 mg T 24 H PO SCH (08:52)
[2017-09-16] MEDS: Aspirin 81mg Chewable Tab PO SCH (08:52)
[2017-09-16] MEDS: Multivitamin Tab PO SCH (08:53)
--- NOTE | 2017-09-16 10:45 | Progress Notes ---
DATE: 09/16/2017 SUBJECTIVE: Case was discussed with staff of the patient, reviewed records. The patient reports she does not like anything here. She is acting in a negative way. She is internally preoccupied. She is demented, confused, unable to make safe plan for self-care, unpredictable, impulsive, needing redirection. She is compliant with the medication with no side effects, no sedation, no nausea, no extrapyramidal symptoms. She tolerated the increase in Abilify that was few days ago. It takes a while before we get the final response and no side effects with the medication, no sedation, no nausea, no extrapyramidal symptoms and we will continue to work with the patient in group therapy, milieu therapy, adjust medication as needed. [facility]# [id number]
--- NOTE | 2017-09-17 06:29 | General Progress Note ---
Subjective - Review of Systems Service Date: 09/17/17 Subjective: Awake, alert but confused VS T98.2 P 95 BP 113/72 R 20 Objective - Results Result Diagrams: 09/05/17 17:13 09/05/17 17:13 Recent Labs: Laboratory Last Values WBC 7.7 Th/cmm (4.8-10.8) 09/05/17 17:13 RBC 4.26 Mil/cmm (3.80-5.10) 09/05/17 17:13 Hgb 13.9 gm/dL (12-16) 09/05/17 17:13 Hct 40.9 % (41.0-60) L 09/05/17 17:13 MCV 96.1 fl (81-100) 09/05/17 17:13 MCH 32.5 pg (27.0-31.0) H 09/05/17 17:13 MCHC Differential 33.9 pg (28.0-36.0) 09/05/17 17:13 RDW 14.5 % (11.5-20.0) 09/05/17 17:13 Plt Count 327 Th/cmm (150-400) 09/05/17 17:13 MPV 7.8 fl 09/05/17 17:13 Neutrophils % 74.8 % (40.0-80.0) 09/05/17 17:13 Lymphocytes % 18.2 % (20.0-50.0) L 09/05/17 17:13 Monocytes % 5.0 % (2.0-10.0) 09/05/17 17:13 Eosinophils % 1.8 % (0.0-5.0) 09/05/17 17:13 Basophils % 0.2 % (0.0-2.0) 09/05/17 17:13 Sodium 136 mEq/L (136-145) 09/05/17 17:13 Potassium 4.1 mEq/L (3.5-5.1) 09/05/17 17:13 Chloride 103 mEq/L (98-107) 09/05/17 17:13 Carbon Dioxide 25.8 mEq/L (21.0-31.0) 09/05/17 17:13 Anion Gap 11.3 (7.0-16.0) 09/05/17 17:13 BUN 19 mg/dL (7-25) 09/05/17 17:13 Creatinine 0.7 mg/dL (0.6-1.2) 09/05/17 17:13 Est GFR ( Amer) > 60.0 ml/min (>90) 09/05/17 17:13 Est GFR (Non-Af Amer) > 60.0 ml/min 09/05/17 17:13 BUN/Creatinine Ratio 27.1 09/05/17 17:13 Glucose 85 mg/dL (70-105) 09/05/17 17:13 Calcium 9.4 mg/dL (8.6-10.3) 09/05/17 17:13 Total Bilirubin 0.2 mg/dL (0.3-1.0) L 09/05/17 17:13 AST 18 U/L (13-39) 09/05/17 17:13 ALT 29 U/L (7-52) 09/05/17 17:13 Alkaline Phosphatase 91 U/L (34-104) 09/05/17 17:13 Total Protein 7.0 gm/dL (6.0-8.3) 09/05/17 17:13 Albumin 3.8 gm/dL (3.7-5.3) 09/05/17 17:13 Globulin 3.2 gm/dL 09/05/17 17:13 Albumin/Globulin Ratio 1.2 (1.0-1.8) 09/05/17 17:13 Urine Source CLEAN C 09/05/17 17:50 Urine Color YELLOW 09/05/17 17:50 Urine Clarity CLEAR (CLEAR) 09/05/17 17:50 Urine pH 6.0 (4.6 - 8.0) 09/05/17 17:50 Ur Specific [place] 1.020 (1.005-1.030) 09/05/17 17:50 Urine Protein NEGATIVE mg/dL (NEGATIVE) 09/05/17 17:50 Urine Glucose (UA) NEGATIVE mg/dL (NEGATIVE) 09/05/17 17:50 Urine Ketones NEGATIVE mg/dL (NEGATIVE) 09/05/17 17:50 Urine Blood NEGATIVE (NEGATIVE) 09/05/17 17:50 Urine Nitrate NEGATIVE (NEGATIVE) 09/05/17 17:50 Urine Bilirubin NEGATIVE (NEGATIVE) 09/05/17 17:50 Urine Urobilinogen 0.2 E.U./dL (0.2 - 1.0) 09/05/17 17:50 Ur Leukocyte Esterase NEGATIVE (NEGATIVE) 09/05/17 17:50 Urine RBC NONE SEEN /hpf (0-5) 09/05/17 17:50 Urine WBC NONE SEEN /hpf (0-5) 09/05/17 17:50 Ur Epithelial Cells NONE SEEN /lpf (FEW) 09/05/17 17:50 Urine Bacteria NONE SEEN /hpf (NONE SEEN) 09/05/17 17:50 - Physical Exam Vitals and I&O: Vital Signs Temp 98.2 F 09/16/17 14:00 Pulse 95 09/16/17 14:00 Resp 20 09/16/17 14:00 BP 113/72 09/16/17 14:00 Pulse Ox 96 09/16/17 14:00 Intake & Output 09/16/17 09/16/17 09/17/17 06:59 18:59 06:59 Intake Total 120 1200 120 Balance 120 1200 120 Intake: Oral 120 1200 120 Other: # Voids 3 3 # Bowel Movements 1 Active Medications: Current Medications Acetaminophen (Tylenol) 650 mg PO Q4HR PRN PRN Reason: Mild Pain / Temp above 100 Stop: 11/04/17 21:49 Al Hydrox/Mg Hydrox/Simethicone (Maalox) 30 ml PO Q4HR PRN PRN Reason: GI DISTRESS Stop: 11/04/17 21:49 Aripiprazole (Abilify) 15 mg PO DAILY [facility]; Protocol Stop: 11/11/17 08:59 Last Admin: 09/16/17 08:52 Dose: 15 mg Aspirin (Aspirin Chewable) 81 mg PO DAILY [facility] Stop: 11/05/17 08:59 Last Admin: 09/16/17 08:52 Dose: 81 mg Bupropion HCl (Wellbutrin Xl) 300 mg PO DAILY [facility]; Protocol Stop: 11/05/17 08:59 Last Admin: 09/16/17 08:52 Dose: 300 mg Donepezil HCl (Aricept) 20 mg PO DAILY [facility] Stop: 11/05/17 08:59 Last Admin: 09/16/17 08:53 Dose: 20 mg Folic Acid (Folate) 1 mg PO DAILY [facility] Stop: 11/05/17 08:59 Last Admin: 09/16/17 08:53 Dose: 1 mg Magnesium Hydroxide (Milk Of Magnesia) 30 ml PO HS PRN PRN Reason: Constipation Memantine (Namenda) 10 mg PO BID [facility] Stop: 11/05/17 08:59 Last Admin: 09/16/17 16:56 Dose: 10 mg Multivitamins/Vitamin C (Theragran) 1 tab PO DAILY [facility] Stop: 11/05/17 08:59 Last Admin: 09/16/17 08:53 Dose: 1 tab Venlafaxine HCl (Effexor Xr) 300 mg PO DAILY [facility]; Protocol Stop: 11/05/17 08:59 Last Admin: 09/16/17 08:53 Dose: 300 mg General: Alert, No acute distress HEENT: Atraumatic, PERRLA, EOMI Neck: Supple, JVD Cardiovascular: Regular rate, Normal S1, Normal S2 Lungs: Clear to auscultation Abdomen: Bowel sounds, Soft Extremities: no Clubbing, no Cyanosis, no Edema Neurological: Normal gait, Normal speech Skin: no Rash Assessment/Plan - Assessment Assessment: Acute Psychosis with aggressive attitude Bipolar Disorder HTN Major Depression Generalized Weakness - Plan Plan: continue current treatment Nutritional Asmnt/Malnutr-PDOC - Dietary Evaluation Malnutrition Findings (Please click <Entered> for more info): Nutritional Asmnt/Malnutrition Start: 09/10/17 14: 01 Text: Status: Complete Freq: Protocol: Document 09/10/17 14:01 LCHENG (Rec: 09/10/17 14:06 [email or web address]) Nutritional Asmnt/Malnutrition Patient General Information Nutritional Screening Low Risk Diagnosis psychosis aggressive behavior Pertinent Medical Hx/Surgical Hx HTN, hyperlipidemia, dementia, psychosis, bipolar disorder, generalizaed muscle weakness Subjective Information Pt seen sitting in castro-chair at time of visit, confused, not able to communicate. Per EMR< PO intake 75-100% of meals. Current Diet Order/ Nutrition Support regular Pertinent Labs 09/04 nutrition labs WNL Nutritional Hx/Data Height 1.7 m Height (Calculated Centimeters) 170.2 Current Weight (lbs) 77.111 kg Weight (Calculated Kilograms) 77.1 Weight (Calculated Grams) 78340.7 [place] Body Weight 135 Body Mass Index (BMI) 26.6 Weight Status Overweight GI Symptoms GI Symptoms None Last BM 09/09 Difficult in: None Skin Integrity/Comment: dryness Current %PO Good (75-100%) Estimated Nutritional Goals BEE in Kcals: Using Current wt Calories/Kcals/Kg 23-27 Kcals Calculated 6859-9582 Protein: Using Current wt Protein g/k.8-1 Protein Calculated 62-77 Fluid: ml 1771-2078ml (1ml/kcal) Nutritional Problem No current Nutrition Prob Problem N/A Malnutrition Alert Is there a minimum of two criteria No selected? Query Text:Check all the applicable criteria. A minimum of two criteria are recommended for diagnosis of either severe or non-severe malnutrition. Malnutrition Related to Morbid Obesity Malnutrition related to morbid obesity No Intervention/Recommendation Comments 1. Continue with current diet as ordered. 2. Monitor PO intake, wt, labs and skin integrity 3. F/U as low risk in 7 days, 09/17 Expected Outcomes/Goals Expected Outcomes/Goals 1. PO intake to meet at least 75% of nutritional needs. 2. Wt stability, skin to remain intact, labs to approach WNL.
[2017-09-17] MEDS: Aspirin 81mg Chewable Tab PO SCH (09:13)
[2017-09-17] MEDS: buPROPion XL 150 mg T 24 H PO SCH (09:13)
[2017-09-17] MEDS: Multivitamin Tab PO SCH (09:14)
[2017-09-17] MEDS ORDERED: Haloperidol Lactate 5 mg/mL 1mL Vial ONE (11:23)
[2017-09-17] MEDS ORDERED: Haloperidol Lactate 5 mg/mL 1mL Vial IM ONE (11:24)
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
--- NOTE | 2017-09-18 07:36 | General Progress Note ---
Subjective - Review of Systems Service Date: 09/18/17 Subjective: Awake, alert but confused VS T98.4 P 76 BP 108/56 R 20 Objective - Results Result Diagrams: 09/05/17 17:13 09/05/17 17:13 Recent Labs: Laboratory Last Values WBC 7.7 Th/cmm (4.8-10.8) 09/05/17 17:13 RBC 4.26 Mil/cmm (3.80-5.10) 09/05/17 17:13 Hgb 13.9 gm/dL (12-16) 09/05/17 17:13 Hct 40.9 % (41.0-60) L 09/05/17 17:13 MCV 96.1 fl (81-100) 09/05/17 17:13 MCH 32.5 pg (27.0-31.0) H 09/05/17 17:13 MCHC Differential 33.9 pg (28.0-36.0) 09/05/17 17:13 RDW 14.5 % (11.5-20.0) 09/05/17 17:13 Plt Count 327 Th/cmm (150-400) 09/05/17 17:13 MPV 7.8 fl 09/05/17 17:13 Neutrophils % 74.8 % (40.0-80.0) 09/05/17 17:13 Lymphocytes % 18.2 % (20.0-50.0) L 09/05/17 17:13 Monocytes % 5.0 % (2.0-10.0) 09/05/17 17:13 Eosinophils % 1.8 % (0.0-5.0) 09/05/17 17:13 Basophils % 0.2 % (0.0-2.0) 09/05/17 17:13 Sodium 136 mEq/L (136-145) 09/05/17 17:13 Potassium 4.1 mEq/L (3.5-5.1) 09/05/17 17:13 Chloride 103 mEq/L (98-107) 09/05/17 17:13 Carbon Dioxide 25.8 mEq/L (21.0-31.0) 09/05/17 17:13 Anion Gap 11.3 (7.0-16.0) 09/05/17 17:13 BUN 19 mg/dL (7-25) 09/05/17 17:13 Creatinine 0.7 mg/dL (0.6-1.2) 09/05/17 17:13 Est GFR ( Amer) > 60.0 ml/min (>90) 09/05/17 17:13 Est GFR (Non-Af Amer) > 60.0 ml/min 09/05/17 17:13 BUN/Creatinine Ratio 27.1 09/05/17 17:13 Glucose 85 mg/dL (70-105) 09/05/17 17:13 Calcium 9.4 mg/dL (8.6-10.3) 09/05/17 17:13 Total Bilirubin 0.2 mg/dL (0.3-1.0) L 09/05/17 17:13 AST 18 U/L (13-39) 09/05/17 17:13 ALT 29 U/L (7-52) 09/05/17 17:13 Alkaline Phosphatase 91 U/L (34-104) 09/05/17 17:13 Total Protein 7.0 gm/dL (6.0-8.3) 09/05/17 17:13 Albumin 3.8 gm/dL (3.7-5.3) 09/05/17 17:13 Globulin 3.2 gm/dL 09/05/17 17:13 Albumin/Globulin Ratio 1.2 (1.0-1.8) 09/05/17 17:13 Urine Source CLEAN C 09/05/17 17:50 Urine Color YELLOW 09/05/17 17:50 Urine Clarity CLEAR (CLEAR) 09/05/17 17:50 Urine pH 6.0 (4.6 - 8.0) 09/05/17 17:50 Ur Specific [place] 1.020 (1.005-1.030) 09/05/17 17:50 Urine Protein NEGATIVE mg/dL (NEGATIVE) 09/05/17 17:50 Urine Glucose (UA) NEGATIVE mg/dL (NEGATIVE) 09/05/17 17:50 Urine Ketones NEGATIVE mg/dL (NEGATIVE) 09/05/17 17:50 Urine Blood NEGATIVE (NEGATIVE) 09/05/17 17:50 Urine Nitrate NEGATIVE (NEGATIVE) 09/05/17 17:50 Urine Bilirubin NEGATIVE (NEGATIVE) 09/05/17 17:50 Urine Urobilinogen 0.2 E.U./dL (0.2 - 1.0) 09/05/17 17:50 Ur Leukocyte Esterase NEGATIVE (NEGATIVE) 09/05/17 17:50 Urine RBC NONE SEEN /hpf (0-5) 09/05/17 17:50 Urine WBC NONE SEEN /hpf (0-5) 09/05/17 17:50 Ur Epithelial Cells NONE SEEN /lpf (FEW) 09/05/17 17:50 Urine Bacteria NONE SEEN /hpf (NONE SEEN) 09/05/17 17:50 - Physical Exam Vitals and I&O: Vital Signs Temp 98.4 F 09/17/17 14:00 Pulse 76 09/17/17 14:00 Resp 20 09/17/17 14:00 BP 108/56 09/17/17 14:00 Pulse Ox 96 09/17/17 14:00 Intake & Output 09/17/17 09/18/17 09/18/17 18:59 06:59 18:59 Intake Total 1000 500 Balance 1000 500 Intake: Oral 1000 500 Other: # Voids 4 3 # Bowel Movements 0 1 Active Medications: Current Medications Acetaminophen (Tylenol) 650 mg PO Q4HR PRN PRN Reason: Mild Pain / Temp above 100 Stop: 11/04/17 21:49 Al Hydrox/Mg Hydrox/Simethicone (Maalox) 30 ml PO Q4HR PRN PRN Reason: GI DISTRESS Stop: 11/04/17 21:49 Aripiprazole (Abilify) 20 mg PO DAILY [facility]; Protocol Stop: 11/17/17 08:59 Aspirin (Aspirin Chewable) 81 mg PO DAILY [facility] Stop: 11/05/17 08:59 Last Admin: 09/17/17 09:13 Dose: 81 mg Bupropion HCl (Wellbutrin Xl) 300 mg PO DAILY [facility]; Protocol Stop: 11/05/17 08:59 Last Admin: 09/17/17 09:13 Dose: 300 mg Donepezil HCl (Aricept) 20 mg PO DAILY [facility] Stop: 11/05/17 08:59 Last Admin: 09/17/17 09:13 Dose: 20 mg Folic Acid (Folate) 1 mg PO DAILY [facility] Stop: 11/05/17 08:59 Last Admin: 09/17/17 09:14 Dose: 1 mg Lorazepam (Ativan) 1 mg IM Q6H PRN; Protocol PRN Reason: Agitation Stop: 11/16/17 07:59 Last Admin: 09/17/17 11:23 Dose: 1 mg Magnesium Hydroxide (Milk Of Magnesia) 30 ml PO HS PRN PRN Reason: Constipation Memantine (Namenda) 10 mg PO BID [facility] Stop: 11/05/17 08:59 Last Admin: 09/17/17 16:42 Dose: 10 mg Multivitamins/Vitamin C (Theragran) 1 tab PO DAILY [facility] Stop: 11/05/17 08:59 Last Admin: 09/17/17 09:14 Dose: 1 tab Valproate Sodium (Depakene) 250 mg PO BID [facility]; Protocol Stop: 11/16/17 16:59 Last Admin: 09/17/17 16:42 Dose: 250 mg Venlafaxine HCl (Effexor Xr) 300 mg PO DAILY [facility]; Protocol Stop: 11/05/17 08:59 Last Admin: 09/17/17 09:13 Dose: 300 mg General: Alert, No acute distress HEENT: Atraumatic, PERRLA, EOMI Neck: Supple, JVD Cardiovascular: Regular rate, Normal S1, Normal S2 Lungs: Clear to auscultation Abdomen: Bowel sounds, Soft Extremities: no Clubbing, no Cyanosis, no Edema Neurological: Normal gait, Normal speech Skin: no Rash Assessment/Plan - Assessment Assessment: Acute Psychosis with aggressive attitude Bipolar Disorder HTN Major Depression Generalized Weakness - Plan Plan: continue current treatment Nutritional Asmnt/Malnutr-PDOC - Dietary Evaluation Malnutrition Findings (Please click <Entered> for more info): Nutritional Asmnt/Malnutrition Start: 09/10/17 14: 01 Text: Status: Complete Freq: Protocol: Document 09/10/17 14:01 LCHENG (Rec: 09/10/17 14:06 LCHENG [email or web address]) Nutritional Asmnt/Malnutrition Patient General Information Nutritional Screening Low Risk Diagnosis psychosis aggressive behavior Pertinent Medical Hx/Surgical Hx HTN, hyperlipidemia, dementia, psychosis, bipolar disorder, generalizaed muscle weakness Subjective Information Pt seen sitting in castro-chair at time of visit, confused, not able to communicate. Per EMR< PO intake 75-100% of meals. Current Diet Order/ Nutrition Support regular Pertinent Labs 09/04 nutrition labs WNL Nutritional Hx/Data Height 1.7 m Height (Calculated Centimeters) 170.2 Current Weight (lbs) 77.111 kg Weight (Calculated Kilograms) 77.1 Weight (Calculated Grams) 09398.7 [place] Body Weight 135 Body Mass Index (BMI) 26.6 Weight Status Overweight GI Symptoms GI Symptoms None Last BM 09/09 Difficult in: None Skin Integrity/Comment: dryness Current %PO Good (75-100%) Estimated Nutritional Goals BEE in Kcals: Using Current wt Calories/Kcals/Kg 23-27 Kcals Calculated 0743-0688 Protein: Using Current wt Protein g/k.8-1 Protein Calculated 62-77 Fluid: ml 1771-2079ml (1ml/kcal) Nutritional Problem No current Nutrition Prob Problem N/A Malnutrition Alert Is there a minimum of two criteria No selected? Query Text:Check all the applicable criteria. A minimum of two criteria are recommended for diagnosis of either severe or non-severe malnutrition. Malnutrition Related to Morbid Obesity Malnutrition related to morbid obesity No Intervention/Recommendation Comments 1. Continue with current diet as ordered. 2. Monitor PO intake, wt, labs and skin integrity 3. F/U as low risk in 7 days, 09/17 Expected Outcomes/Goals Expected Outcomes/Goals 1. PO intake to meet at least 75% of nutritional needs. 2. Wt stability, skin to remain intact, labs to approach WNL.
[2017-09-18] MEDS: Multivitamin Tab PO SCH (09:06)
[2017-09-18] MEDS: Aspirin 81mg Chewable Tab PO SCH (09:06)
[2017-09-18] MEDS: buPROPion XL 150 mg T 24 H PO SCH (09:06)
[2017-09-18] MEDS ORDERED: chlorproMAZINE 25 mg/mL 2mL Amp ONE (13:06)
[2017-09-18] MEDS ORDERED: chlorproMAZINE 25 mg/mL 2mL Amp IM ONE (13:06)
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
--- NOTE | 2017-09-19 06:25 | General Progress Note ---
Subjective - Review of Systems Service Date: 09/19/17 Subjective: Awake, alert but confused VS T98.7 P 90 BP 117/74 R 20 Objective - Results Result Diagrams: 09/05/17 17:13 09/05/17 17:13 Recent Labs: Laboratory Last Values WBC 7.7 Th/cmm (4.8-10.8) 09/05/17 17:13 RBC 4.26 Mil/cmm (3.80-5.10) 09/05/17 17:13 Hgb 13.9 gm/dL (12-16) 09/05/17 17:13 Hct 40.9 % (41.0-60) L 09/05/17 17:13 MCV 96.1 fl (81-100) 09/05/17 17:13 MCH 32.5 pg (27.0-31.0) H 09/05/17 17:13 MCHC Differential 33.9 pg (28.0-36.0) 09/05/17 17:13 RDW 14.5 % (11.5-20.0) 09/05/17 17:13 Plt Count 327 Th/cmm (150-400) 09/05/17 17:13 MPV 7.8 fl 09/05/17 17:13 Neutrophils % 74.8 % (40.0-80.0) 09/05/17 17:13 Lymphocytes % 18.2 % (20.0-50.0) L 09/05/17 17:13 Monocytes % 5.0 % (2.0-10.0) 09/05/17 17:13 Eosinophils % 1.8 % (0.0-5.0) 09/05/17 17:13 Basophils % 0.2 % (0.0-2.0) 09/05/17 17:13 Sodium 136 mEq/L (136-145) 09/05/17 17:13 Potassium 4.1 mEq/L (3.5-5.1) 09/05/17 17:13 Chloride 103 mEq/L (98-107) 09/05/17 17:13 Carbon Dioxide 25.8 mEq/L (21.0-31.0) 09/05/17 17:13 Anion Gap 11.3 (7.0-16.0) 09/05/17 17:13 BUN 19 mg/dL (7-25) 09/05/17 17:13 Creatinine 0.7 mg/dL (0.6-1.2) 09/05/17 17:13 Est GFR ( Amer) > 60.0 ml/min (>90) 09/05/17 17:13 Est GFR (Non-Af Amer) > 60.0 ml/min 09/05/17 17:13 BUN/Creatinine Ratio 27.1 09/05/17 17:13 Glucose 85 mg/dL (70-105) 09/05/17 17:13 Calcium 9.4 mg/dL (8.6-10.3) 09/05/17 17:13 Total Bilirubin 0.2 mg/dL (0.3-1.0) L 09/05/17 17:13 AST 18 U/L (13-39) 09/05/17 17:13 ALT 29 U/L (7-52) 09/05/17 17:13 Alkaline Phosphatase 91 U/L (34-104) 09/05/17 17:13 Total Protein 7.0 gm/dL (6.0-8.3) 09/05/17 17:13 Albumin 3.8 gm/dL (3.7-5.3) 09/05/17 17:13 Globulin 3.2 gm/dL 09/05/17 17:13 Albumin/Globulin Ratio 1.2 (1.0-1.8) 09/05/17 17:13 Urine Source CLEAN C 09/05/17 17:50 Urine Color YELLOW 09/05/17 17:50 Urine Clarity CLEAR (CLEAR) 09/05/17 17:50 Urine pH 6.0 (4.6 - 8.0) 09/05/17 17:50 Ur Specific [place] 1.020 (1.005-1.030) 09/05/17 17:50 Urine Protein NEGATIVE mg/dL (NEGATIVE) 09/05/17 17:50 Urine Glucose (UA) NEGATIVE mg/dL (NEGATIVE) 09/05/17 17:50 Urine Ketones NEGATIVE mg/dL (NEGATIVE) 09/05/17 17:50 Urine Blood NEGATIVE (NEGATIVE) 09/05/17 17:50 Urine Nitrate NEGATIVE (NEGATIVE) 09/05/17 17:50 Urine Bilirubin NEGATIVE (NEGATIVE) 09/05/17 17:50 Urine Urobilinogen 0.2 E.U./dL (0.2 - 1.0) 09/05/17 17:50 Ur Leukocyte Esterase NEGATIVE (NEGATIVE) 09/05/17 17:50 Urine RBC NONE SEEN /hpf (0-5) 09/05/17 17:50 Urine WBC NONE SEEN /hpf (0-5) 09/05/17 17:50 Ur Epithelial Cells NONE SEEN /lpf (FEW) 09/05/17 17:50 Urine Bacteria NONE SEEN /hpf (NONE SEEN) 09/05/17 17:50 - Physical Exam Vitals and I&O: Vital Signs Temp 98.7 F 09/18/17 14:00 Pulse 90 09/18/17 14:00 Resp 20 09/18/17 20:00 BP 117/74 09/18/17 14:00 Pulse Ox 98 09/18/17 14:00 Intake & Output 09/18/17 09/18/17 09/19/17 06:59 18:59 06:59 Intake Total 500 1000 Balance 500 1000 Intake: Oral 500 1000 Other: # Voids 3 4 # Bowel Movements 1 1 Active Medications: Current Medications Acetaminophen (Tylenol) 650 mg PO Q4HR PRN PRN Reason: Mild Pain / Temp above 100 Stop: 11/04/17 21:49 Al Hydrox/Mg Hydrox/Simethicone (Maalox) 30 ml PO Q4HR PRN PRN Reason: GI DISTRESS Stop: 11/04/17 21:49 Aspirin (Aspirin Chewable) 81 mg PO DAILY [facility] Stop: 11/05/17 08:59 Last Admin: 09/18/17 09:06 Dose: 81 mg Bupropion HCl (Wellbutrin Xl) 300 mg PO DAILY [facility]; Protocol Stop: 11/05/17 08:59 Last Admin: 09/18/17 09:06 Dose: 300 mg Donepezil HCl (Aricept) 20 mg PO DAILY [facility] Stop: 11/05/17 08:59 Last Admin: 09/18/17 09:06 Dose: 20 mg Folic Acid (Folate) 1 mg PO DAILY [facility] Stop: 11/05/17 08:59 Last Admin: 09/18/17 09:06 Dose: 1 mg Lorazepam (Ativan) 1 mg IM Q6H PRN; Protocol PRN Reason: Agitation Stop: 11/16/17 07:59 Last Admin: 09/17/17 11:23 Dose: 1 mg Magnesium Hydroxide (Milk Of Magnesia) 30 ml PO HS PRN PRN Reason: Constipation Memantine (Namenda) 10 mg PO BID [facility] Stop: 11/05/17 08:59 Last Admin: 09/18/17 17:03 Dose: 10 mg Multivitamins/Vitamin C (Theragran) 1 tab PO DAILY [facility] Stop: 11/05/17 08:59 Last Admin: 09/18/17 09:06 Dose: 1 tab Quetiapine Fumarate (Seroquel) 50 mg PO BID [facility]; Protocol Stop: 11/17/17 16:59 Valproate Sodium (Depakene) 250 mg PO BID [facility]; Protocol Stop: 11/16/17 16:59 Last Admin: 09/18/17 17:03 Dose: 250 mg Venlafaxine HCl (Effexor Xr) 300 mg PO DAILY [facility]; Protocol Stop: 11/05/17 08:59 Last Admin: 09/18/17 09:05 Dose: 300 mg General: Alert, No acute distress HEENT: Atraumatic, PERRLA, EOMI Neck: Supple, JVD Cardiovascular: Regular rate, Normal S1, Normal S2 Lungs: Clear to auscultation Abdomen: Bowel sounds, Soft Extremities: no Clubbing, no Cyanosis, no Edema Neurological: Normal gait, Normal speech Skin: no Rash Assessment/Plan - Assessment Assessment: Acute Psychosis with aggressive attitude Bipolar Disorder HTN Major Depression Generalized Weakness - Plan Plan: continue current treatment Nutritional Asmnt/Malnutr-PDOC - Dietary Evaluation Malnutrition Findings (Please click <Entered> for more info): Nutritional Asmnt/Malnutrition Start: 09/10/17 14: 01 Text: Status: Complete Freq: Protocol: Document 09/10/17 14:01 LCHENG (Rec: 09/10/17 14:06 LCHENG [email or web address]) Nutritional Asmnt/Malnutrition Patient General Information Nutritional Screening Low Risk Diagnosis psychosis aggressive behavior Pertinent Medical Hx/Surgical Hx HTN, hyperlipidemia, dementia, psychosis, bipolar disorder, generalizaed muscle weakness Subjective Information Pt seen sitting in castro-chair at time of visit, confused, not able to communicate. Per EMR< PO intake 75-100% of meals. Current Diet Order/ Nutrition Support regular Pertinent Labs 09/04 nutrition labs WNL Nutritional Hx/Data Height 1.7 m Height (Calculated Centimeters) 170.2 Current Weight (lbs) 77.111 kg Weight (Calculated Kilograms) 77.1 Weight (Calculated Grams) 02173.7 [place] Body Weight 135 Body Mass Index (BMI) 26.6 Weight Status Overweight GI Symptoms GI Symptoms None Last BM 09/09 Difficult in: None Skin Integrity/Comment: dryness Current %PO Good (75-100%) Estimated Nutritional Goals BEE in Kcals: Using Current wt Calories/Kcals/Kg 23-27 Kcals Calculated 7465-2347 Protein: Using Current wt Protein g/k.8-1 Protein Calculated 62-77 Fluid: ml 1771-2079ml (1ml/kcal) Nutritional Problem No current Nutrition Prob Problem N/A Malnutrition Alert Is there a minimum of two criteria No selected? Query Text:Check all the applicable criteria. A minimum of two criteria are recommended for diagnosis of either severe or non-severe malnutrition. Malnutrition Related to Morbid Obesity Malnutrition related to morbid obesity No Intervention/Recommendation Comments 1. Continue with current diet as ordered. 2. Monitor PO intake, wt, labs and skin integrity 3. F/U as low risk in 7 days, 09/17 Expected Outcomes/Goals Expected Outcomes/Goals 1. PO intake to meet at least 75% of nutritional needs. 2. Wt stability, skin to remain intact, labs to approach WNL.
[2017-09-19] MEDS: buPROPion XL 150 mg T 24 H PO SCH (08:50)
[2017-09-19] MEDS: Multivitamin Tab PO SCH (08:50)
[2017-09-19] MEDS: Aspirin 81mg Chewable Tab PO SCH (08:50)
--- NOTE | 2017-09-19 22:52 | Progress Notes ---
DATE: 09/19/2017 Case was discussed with staff of the patient, reviewed records. The patient continues to have episodes of agitation and irritability, continues to be unpredictable, impulsive, needing redirection. Continues to have poor insight. Unable to make safe plan for self-care. She is also demented, confused, needing redirection. No side effects with the medication, no sedation, no nausea, no extrapyramidal symptoms. She tolerated the change in her medication, Seroquel was increased to 50 mg twice a day. We will continue the patient with group therapy, milieu therapy, and adjust medications as needed. [facility]# [id number]
--- NOTE | 2017-09-20 05:45 | General Progress Note ---
Subjective - Review of Systems Service Date: 09/20/17 Subjective: Awake, alert but confused VS T98.2 P 92 BP 107/67 R 20 Objective - Results Result Diagrams: 09/05/17 17:13 09/05/17 17:13 Recent Labs: Laboratory Last Values WBC 7.7 Th/cmm (4.8-10.8) 09/05/17 17:13 RBC 4.26 Mil/cmm (3.80-5.10) 09/05/17 17:13 Hgb 13.9 gm/dL (12-16) 09/05/17 17:13 Hct 40.9 % (41.0-60) L 09/05/17 17:13 MCV 96.1 fl (81-100) 09/05/17 17:13 MCH 32.5 pg (27.0-31.0) H 09/05/17 17:13 MCHC Differential 33.9 pg (28.0-36.0) 09/05/17 17:13 RDW 14.5 % (11.5-20.0) 09/05/17 17:13 Plt Count 327 Th/cmm (150-400) 09/05/17 17:13 MPV 7.8 fl 09/05/17 17:13 Neutrophils % 74.8 % (40.0-80.0) 09/05/17 17:13 Lymphocytes % 18.2 % (20.0-50.0) L 09/05/17 17:13 Monocytes % 5.0 % (2.0-10.0) 09/05/17 17:13 Eosinophils % 1.8 % (0.0-5.0) 09/05/17 17:13 Basophils % 0.2 % (0.0-2.0) 09/05/17 17:13 Sodium 136 mEq/L (136-145) 09/05/17 17:13 Potassium 4.1 mEq/L (3.5-5.1) 09/05/17 17:13 Chloride 103 mEq/L (98-107) 09/05/17 17:13 Carbon Dioxide 25.8 mEq/L (21.0-31.0) 09/05/17 17:13 Anion Gap 11.3 (7.0-16.0) 09/05/17 17:13 BUN 19 mg/dL (7-25) 09/05/17 17:13 Creatinine 0.7 mg/dL (0.6-1.2) 09/05/17 17:13 Est GFR ( Amer) > 60.0 ml/min (>90) 09/05/17 17:13 Est GFR (Non-Af Amer) > 60.0 ml/min 09/05/17 17:13 BUN/Creatinine Ratio 27.1 09/05/17 17:13 Glucose 85 mg/dL (70-105) 09/05/17 17:13 Calcium 9.4 mg/dL (8.6-10.3) 09/05/17 17:13 Total Bilirubin 0.2 mg/dL (0.3-1.0) L 09/05/17 17:13 AST 18 U/L (13-39) 09/05/17 17:13 ALT 29 U/L (7-52) 09/05/17 17:13 Alkaline Phosphatase 91 U/L (34-104) 09/05/17 17:13 Total Protein 7.0 gm/dL (6.0-8.3) 09/05/17 17:13 Albumin 3.8 gm/dL (3.7-5.3) 09/05/17 17:13 Globulin 3.2 gm/dL 09/05/17 17:13 Albumin/Globulin Ratio 1.2 (1.0-1.8) 09/05/17 17:13 Urine Source CLEAN C 09/05/17 17:50 Urine Color YELLOW 09/05/17 17:50 Urine Clarity CLEAR (CLEAR) 09/05/17 17:50 Urine pH 6.0 (4.6 - 8.0) 09/05/17 17:50 Ur Specific [place] 1.020 (1.005-1.030) 09/05/17 17:50 Urine Protein NEGATIVE mg/dL (NEGATIVE) 09/05/17 17:50 Urine Glucose (UA) NEGATIVE mg/dL (NEGATIVE) 09/05/17 17:50 Urine Ketones NEGATIVE mg/dL (NEGATIVE) 09/05/17 17:50 Urine Blood NEGATIVE (NEGATIVE) 09/05/17 17:50 Urine Nitrate NEGATIVE (NEGATIVE) 09/05/17 17:50 Urine Bilirubin NEGATIVE (NEGATIVE) 09/05/17 17:50 Urine Urobilinogen 0.2 E.U./dL (0.2 - 1.0) 09/05/17 17:50 Ur Leukocyte Esterase NEGATIVE (NEGATIVE) 09/05/17 17:50 Urine RBC NONE SEEN /hpf (0-5) 09/05/17 17:50 Urine WBC NONE SEEN /hpf (0-5) 09/05/17 17:50 Ur Epithelial Cells NONE SEEN /lpf (FEW) 09/05/17 17:50 Urine Bacteria NONE SEEN /hpf (NONE SEEN) 09/05/17 17:50 - Physical Exam Vitals and I&O: Vital Signs Temp 98.2 F 09/19/17 14:00 Pulse 92 09/19/17 14:00 Resp 20 09/19/17 14:00 BP 107/67 09/19/17 14:00 Pulse Ox 98 09/19/17 14:00 Intake & Output 09/19/17 09/19/17 09/20/17 06:59 18:59 06:59 Intake Total 960 Balance 960 Intake: Oral 960 Other: # Voids 3 # Bowel Movements 1 Active Medications: Current Medications Acetaminophen (Tylenol) 650 mg PO Q4HR PRN PRN Reason: Mild Pain / Temp above 100 Stop: 11/04/17 21:49 Al Hydrox/Mg Hydrox/Simethicone (Maalox) 30 ml PO Q4HR PRN PRN Reason: GI DISTRESS Stop: 11/04/17 21:49 Aspirin (Aspirin Chewable) 81 mg PO DAILY [facility] Stop: 11/05/17 08:59 Last Admin: 09/19/17 08:50 Dose: 81 mg Bupropion HCl (Wellbutrin Xl) 300 mg PO DAILY [facility]; Protocol Stop: 11/05/17 08:59 Last Admin: 09/19/17 08:50 Dose: 300 mg Donepezil HCl (Aricept) 20 mg PO DAILY [facility] Stop: 11/05/17 08:59 Last Admin: 09/19/17 08:50 Dose: 20 mg Folic Acid (Folate) 1 mg PO DAILY [facility] Stop: 11/05/17 08:59 Last Admin: 09/19/17 08:50 Dose: 1 mg Lorazepam (Ativan) 1 mg IM Q6H PRN; Protocol PRN Reason: Agitation Stop: 11/16/17 07:59 Last Admin: 09/17/17 11:23 Dose: 1 mg Magnesium Hydroxide (Milk Of Magnesia) 30 ml PO HS PRN PRN Reason: Constipation Memantine (Namenda) 10 mg PO BID [facility] Stop: 11/05/17 08:59 Last Admin: 09/19/17 16:37 Dose: 10 mg Multivitamins/Vitamin C (Theragran) 1 tab PO DAILY [facility] Stop: 11/05/17 08:59 Last Admin: 09/19/17 08:50 Dose: 1 tab Quetiapine Fumarate (Seroquel) 50 mg PO BID [facility]; Protocol Stop: 11/17/17 16:59 Last Admin: 09/19/17 16:37 Dose: 50 mg Valproate Sodium (Depakene) 250 mg PO BID [facility]; Protocol Stop: 11/16/17 16:59 Last Admin: 09/19/17 16:37 Dose: 250 mg Venlafaxine HCl (Effexor Xr) 300 mg PO DAILY [facility]; Protocol Stop: 11/05/17 08:59 Last Admin: 09/19/17 08:48 Dose: 300 mg General: Alert, No acute distress HEENT: Atraumatic, PERRLA, EOMI Neck: Supple, JVD Cardiovascular: Regular rate, Normal S1, Normal S2 Lungs: Clear to auscultation Abdomen: Bowel sounds, Soft Extremities: no Clubbing, no Cyanosis, no Edema Neurological: Normal gait, Normal speech Skin: no Rash Assessment/Plan - Assessment Assessment: Acute Psychosis with aggressive attitude Bipolar Disorder HTN Major Depression Generalized Weakness - Plan Plan: continue current treatment Nutritional Asmnt/Malnutr-PDOC - Dietary Evaluation Malnutrition Findings (Please click <Entered> for more info): Nutritional Asmnt/Malnutrition Start: 09/10/17 14: 01 Text: Status: Complete Freq: Protocol: Document 09/10/17 14:01 LCHENG (Rec: 09/10/17 14:06 [email or web address]) Nutritional Asmnt/Malnutrition Patient General Information Nutritional Screening Low Risk Diagnosis psychosis aggressive behavior Pertinent Medical Hx/Surgical Hx HTN, hyperlipidemia, dementia, psychosis, bipolar disorder, generalizaed muscle weakness Subjective Information Pt seen sitting in castro-chair at time of visit, confused, not able to communicate. Per EMR< PO intake 75-100% of meals. Current Diet Order/ Nutrition Support regular Pertinent Labs 09/04 nutrition labs WNL Nutritional Hx/Data Height 1.7 m Height (Calculated Centimeters) 170.2 Current Weight (lbs) 77.111 kg Weight (Calculated Kilograms) 77.1 Weight (Calculated Grams) 31996.7 [place] Body Weight 135 Body Mass Index (BMI) 26.6 Weight Status Overweight GI Symptoms GI Symptoms None Last BM 09/09 Difficult in: None Skin Integrity/Comment: dryness Current %PO Good (75-100%) Estimated Nutritional Goals BEE in Kcals: Using Current wt Calories/Kcals/Kg 23-27 Kcals Calculated 0259-2259 Protein: Using Current wt Protein g/k.8-1 Protein Calculated 62-77 Fluid: ml 1771-2079ml (1ml/kcal) Nutritional Problem No current Nutrition Prob Problem N/A Malnutrition Alert Is there a minimum of two criteria No selected? Query Text:Check all the applicable criteria. A minimum of two criteria are recommended for diagnosis of either severe or non-severe malnutrition. Malnutrition Related to Morbid Obesity Malnutrition related to morbid obesity No Intervention/Recommendation Comments 1. Continue with current diet as ordered. 2. Monitor PO intake, wt, labs and skin integrity 3. F/U as low risk in 7 days, 09/17 Expected Outcomes/Goals Expected Outcomes/Goals 1. PO intake to meet at least 75% of nutritional needs. 2. Wt stability, skin to remain intact, labs to approach WNL.
[2017-09-20] MEDS: Aspirin 81mg Chewable Tab PO SCH (08:56)
[2017-09-20] MEDS: Multivitamin Tab PO SCH (08:56)
[2017-09-20] MEDS: buPROPion XL 150 mg T 24 H PO SCH (09:02)
--- NOTE | 2017-09-20 22:07 | Progress Notes ---
DATE: 09/20/2017 SUBJECTIVE: Case was discussed with staff of the patient, reviewed records. The patient continues to be confused, easily agitated, continues to have poor insight, continues to be unable to make safe plan for self-care. She is demented, easily agitated. No side effects with the medication, no sedation, no nausea, no extrapyramidal symptoms and I have taken her off the Abilify. I initiated Seroquel yesterday 50 mg twice a day with no side effects, no sedation, no nausea and no extrapyramidal symptoms, and urinalysis within normal range. Chemistry panel within normal range. Depakote level is pending. CBC with low lymphocytes with low MCH and low hematocrit, but hemoglobin within normal range. I will be checking her Depakote level and we will continue the patient in group therapy and milieu therapy and adjust the medications as needed. JOB# [id number]
--- NOTE | 2017-09-21 07:15 | General Progress Note ---
Subjective - Review of Systems Service Date: 09/21/17 Subjective: Awake, alert but confused VS T98.2 P 972 BP 110/67 R 20 Objective - Results Result Diagrams: 09/05/17 17:13 09/05/17 17:13 Recent Labs: Laboratory Last Values WBC 7.7 Th/cmm (4.8-10.8) 09/05/17 17:13 RBC 4.26 Mil/cmm (3.80-5.10) 09/05/17 17:13 Hgb 13.9 gm/dL (12-16) 09/05/17 17:13 Hct 40.9 % (41.0-60) L 09/05/17 17:13 MCV 96.1 fl (81-100) 09/05/17 17:13 MCH 32.5 pg (27.0-31.0) H 09/05/17 17:13 MCHC Differential 33.9 pg (28.0-36.0) 09/05/17 17:13 RDW 14.5 % (11.5-20.0) 09/05/17 17:13 Plt Count 327 Th/cmm (150-400) 09/05/17 17:13 MPV 7.8 fl 09/05/17 17:13 Neutrophils % 74.8 % (40.0-80.0) 09/05/17 17:13 Lymphocytes % 18.2 % (20.0-50.0) L 09/05/17 17:13 Monocytes % 5.0 % (2.0-10.0) 09/05/17 17:13 Eosinophils % 1.8 % (0.0-5.0) 09/05/17 17:13 Basophils % 0.2 % (0.0-2.0) 09/05/17 17:13 Sodium 136 mEq/L (136-145) 09/05/17 17:13 Potassium 4.1 mEq/L (3.5-5.1) 09/05/17 17:13 Chloride 103 mEq/L (98-107) 09/05/17 17:13 Carbon Dioxide 25.8 mEq/L (21.0-31.0) 09/05/17 17:13 Anion Gap 11.3 (7.0-16.0) 09/05/17 17:13 BUN 19 mg/dL (7-25) 09/05/17 17:13 Creatinine 0.7 mg/dL (0.6-1.2) 09/05/17 17:13 Est GFR ( Amer) > 60.0 ml/min (>90) 09/05/17 17:13 Est GFR (Non-Af Amer) > 60.0 ml/min 09/05/17 17:13 BUN/Creatinine Ratio 27.1 09/05/17 17:13 Glucose 85 mg/dL (70-105) 09/05/17 17:13 Calcium 9.4 mg/dL (8.6-10.3) 09/05/17 17:13 Total Bilirubin 0.2 mg/dL (0.3-1.0) L 09/05/17 17:13 AST 18 U/L (13-39) 09/05/17 17:13 ALT 29 U/L (7-52) 09/05/17 17:13 Alkaline Phosphatase 91 U/L (34-104) 09/05/17 17:13 Total Protein 7.0 gm/dL (6.0-8.3) 09/05/17 17:13 Albumin 3.8 gm/dL (3.7-5.3) 09/05/17 17:13 Globulin 3.2 gm/dL 09/05/17 17:13 Albumin/Globulin Ratio 1.2 (1.0-1.8) 09/05/17 17:13 Urine Source CLEAN C 09/05/17 17:50 Urine Color YELLOW 09/05/17 17:50 Urine Clarity CLEAR (CLEAR) 09/05/17 17:50 Urine pH 6.0 (4.6 - 8.0) 09/05/17 17:50 Ur Specific [place] 1.020 (1.005-1.030) 09/05/17 17:50 Urine Protein NEGATIVE mg/dL (NEGATIVE) 09/05/17 17:50 Urine Glucose (UA) NEGATIVE mg/dL (NEGATIVE) 09/05/17 17:50 Urine Ketones NEGATIVE mg/dL (NEGATIVE) 09/05/17 17:50 Urine Blood NEGATIVE (NEGATIVE) 09/05/17 17:50 Urine Nitrate NEGATIVE (NEGATIVE) 09/05/17 17:50 Urine Bilirubin NEGATIVE (NEGATIVE) 09/05/17 17:50 Urine Urobilinogen 0.2 E.U./dL (0.2 - 1.0) 09/05/17 17:50 Ur Leukocyte Esterase NEGATIVE (NEGATIVE) 09/05/17 17:50 Urine RBC NONE SEEN /hpf (0-5) 09/05/17 17:50 Urine WBC NONE SEEN /hpf (0-5) 09/05/17 17:50 Ur Epithelial Cells NONE SEEN /lpf (FEW) 09/05/17 17:50 Urine Bacteria NONE SEEN /hpf (NONE SEEN) 09/05/17 17:50 Valproic Acid 45.3 ug/mL (50.0-100.0) L 09/20/17 12:45 - Physical Exam Vitals and I&O: Vital Signs Temp 98.2 F 09/21/17 06:28 Pulse 72 09/21/17 06:28 Resp 20 09/21/17 06:28 BP 110/67 09/21/17 06:28 Pulse Ox 96 09/21/17 06:28 Intake & Output 09/20/17 09/21/17 09/21/17 18:59 06:59 18:59 Intake Total 1450 180 Balance 1450 180 Weight (lbs) 77.111 kg Intake: Oral 1450 180 Other: # Voids 3 3 # Bowel Movements 1 0 Weight Source Bedscale Active Medications: Current Medications Acetaminophen (Tylenol) 650 mg PO Q4HR PRN PRN Reason: Mild Pain / Temp above 100 Stop: 11/04/17 21:49 Al Hydrox/Mg Hydrox/Simethicone (Maalox) 30 ml PO Q4HR PRN PRN Reason: GI DISTRESS Stop: 11/04/17 21:49 Aspirin (Aspirin Chewable) 81 mg PO DAILY [facility] Stop: 11/05/17 08:59 Last Admin: 09/20/17 08:56 Dose: 81 mg Bupropion HCl (Wellbutrin Xl) 300 mg PO DAILY [facility]; Protocol Stop: 11/05/17 08:59 Last Admin: 09/20/17 09:02 Dose: 300 mg Donepezil HCl (Aricept) 20 mg PO DAILY [facility] Stop: 11/05/17 08:59 Last Admin: 09/20/17 08:55 Dose: 20 mg Folic Acid (Folate) 1 mg PO DAILY [facility] Stop: 11/05/17 08:59 Last Admin: 09/20/17 08:56 Dose: 1 mg Lorazepam (Ativan) 1 mg IM Q6H PRN; Protocol PRN Reason: Agitation Stop: 11/16/17 07:59 Last Admin: 09/17/17 11:23 Dose: 1 mg Magnesium Hydroxide (Milk Of Magnesia) 30 ml PO HS PRN PRN Reason: Constipation Memantine (Namenda) 10 mg PO BID [facility] Stop: 11/05/17 08:59 Last Admin: 09/20/17 16:37 Dose: 10 mg Multivitamins/Vitamin C (Theragran) 1 tab PO DAILY [facility] Stop: 11/05/17 08:59 Last Admin: 09/20/17 08:56 Dose: 1 tab Quetiapine Fumarate (Seroquel) 50 mg PO BID [facility]; Protocol Stop: 11/17/17 16:59 Last Admin: 09/20/17 16:37 Dose: 50 mg Valproate Sodium (Depakene) 250 mg PO BID [facility]; Protocol Stop: 11/16/17 16:59 Last Admin: 09/20/17 16:36 Dose: 250 mg Venlafaxine HCl (Effexor Xr) 300 mg PO DAILY [facility]; Protocol Stop: 11/05/17 08:59 Last Admin: 09/20/17 09:02 Dose: 300 mg General: Alert, No acute distress HEENT: Atraumatic, PERRLA, EOMI Neck: Supple, JVD Cardiovascular: Regular rate, Normal S1, Normal S2 Lungs: Clear to auscultation Abdomen: Bowel sounds, Soft Extremities: no Clubbing, no Cyanosis, no Edema Neurological: Normal gait, Normal speech Skin: no Rash Assessment/Plan - Assessment Assessment: Acute Psychosis with aggressive attitude Bipolar Disorder HTN Major Depression Generalized Weakness - Plan Plan: continue current treatment Nutritional Asmnt/Malnutr-PDOC - Dietary Evaluation Malnutrition Findings (Please click <Entered> for more info): Nutritional Asmnt/Malnutrition Start: 09/10/17 14: 01 Text: Status: Complete Freq: Protocol: Document 09/10/17 14:01 KATLYN (Rec: 09/10/17 14:06 KATLYN [email or web address]) Nutritional Asmnt/Malnutrition Patient General Information Nutritional Screening Low Risk Diagnosis psychosis aggressive behavior Pertinent Medical Hx/Surgical Hx HTN, hyperlipidemia, dementia, psychosis, bipolar disorder, generalizaed muscle weakness Subjective Information Pt seen sitting in castro-chair at time of visit, confused, not able to communicate. Per EMR< PO intake 75-100% of meals. Current Diet Order/ Nutrition Support regular Pertinent Labs 09/04 nutrition labs WNL Nutritional Hx/Data Height 1.7 m Height (Calculated Centimeters) 170.2 Current Weight (lbs) 77.111 kg Weight (Calculated Kilograms) 77.1 Weight (Calculated Grams) 30103.7 [place] Body Weight 135 Body Mass Index (BMI) 26.6 Weight Status Overweight GI Symptoms GI Symptoms None Last BM 09/09 Difficult in: None Skin Integrity/Comment: dryness Current %PO Good (75-100%) Estimated Nutritional Goals BEE in Kcals: Using Current wt Calories/Kcals/Kg 23-27 Kcals Calculated 0190-5416 Protein: Using Current wt Protein g/k.8-1 Protein Calculated 62-77 Fluid: ml 1771-2079ml (1ml/kcal) Nutritional Problem No current Nutrition Prob Problem N/A Malnutrition Alert Is there a minimum of two criteria No selected? Query Text:Check all the applicable criteria. A minimum of two criteria are recommended for diagnosis of either severe or non-severe malnutrition. Malnutrition Related to Morbid Obesity Malnutrition related to morbid obesity No Intervention/Recommendation Comments 1. Continue with current diet as ordered. 2. Monitor PO intake, wt, labs and skin integrity 3. F/U as low risk in 7 days, 09/17 Expected Outcomes/Goals Expected Outcomes/Goals 1. PO intake to meet at least 75% of nutritional needs. 2. Wt stability, skin to remain intact, labs to approach WNL.
[2017-09-21] MEDS: buPROPion XL 150 mg T 24 H PO SCH (09:48)
[2017-09-21] MEDS: Multivitamin Tab PO SCH (09:49)
[2017-09-21] MEDS: Aspirin 81mg Chewable Tab PO SCH (09:49)
--- NOTE | 2017-09-21 21:07 | Progress Notes ---
DATE: 09/21/2017 Case was discussed with staff of the patient, reviewed records. The patient is reported by the staff to have been ____. She is sleeping better, eating better, continues to be confused, easily overwhelmed, agitated. Depakote level is 45.2, which is appropriate. No side effects with the medication, no sedation, no nausea, no extrapyramidal symptoms. I will be increasing her Seroquel dose to 75 mg twice a day and so far no side effects, no sedation, no nausea, no extrapyramidal symptoms and we will continue to work with the patient in group therapy, milieu therapy and adjust the medication as needed. JOB# [id number]
--- NOTE | 2017-09-22 07:40 | General Progress Note ---
Subjective - Review of Systems Service Date: 09/22/17 Subjective: Awake, alert but confused VS T98.2 P 71 BP 101/57 R 20 Objective - Results Result Diagrams: 09/05/17 17:13 09/05/17 17:13 Recent Labs: Laboratory Last Values WBC 7.7 Th/cmm (4.8-10.8) 09/05/17 17:13 RBC 4.26 Mil/cmm (3.80-5.10) 09/05/17 17:13 Hgb 13.9 gm/dL (12-16) 09/05/17 17:13 Hct 40.9 % (41.0-60) L 09/05/17 17:13 MCV 96.1 fl (81-100) 09/05/17 17:13 MCH 32.5 pg (27.0-31.0) H 09/05/17 17:13 MCHC Differential 33.9 pg (28.0-36.0) 09/05/17 17:13 RDW 14.5 % (11.5-20.0) 09/05/17 17:13 Plt Count 327 Th/cmm (150-400) 09/05/17 17:13 MPV 7.8 fl 09/05/17 17:13 Neutrophils % 74.8 % (40.0-80.0) 09/05/17 17:13 Lymphocytes % 18.2 % (20.0-50.0) L 09/05/17 17:13 Monocytes % 5.0 % (2.0-10.0) 09/05/17 17:13 Eosinophils % 1.8 % (0.0-5.0) 09/05/17 17:13 Basophils % 0.2 % (0.0-2.0) 09/05/17 17:13 Sodium 136 mEq/L (136-145) 09/05/17 17:13 Potassium 4.1 mEq/L (3.5-5.1) 09/05/17 17:13 Chloride 103 mEq/L (98-107) 09/05/17 17:13 Carbon Dioxide 25.8 mEq/L (21.0-31.0) 09/05/17 17:13 Anion Gap 11.3 (7.0-16.0) 09/05/17 17:13 BUN 19 mg/dL (7-25) 09/05/17 17:13 Creatinine 0.7 mg/dL (0.6-1.2) 09/05/17 17:13 Est GFR ( Amer) > 60.0 ml/min (>90) 09/05/17 17:13 Est GFR (Non-Af Amer) > 60.0 ml/min 09/05/17 17:13 BUN/Creatinine Ratio 27.1 09/05/17 17:13 Glucose 85 mg/dL (70-105) 09/05/17 17:13 Calcium 9.4 mg/dL (8.6-10.3) 09/05/17 17:13 Total Bilirubin 0.2 mg/dL (0.3-1.0) L 09/05/17 17:13 AST 18 U/L (13-39) 09/05/17 17:13 ALT 29 U/L (7-52) 09/05/17 17:13 Alkaline Phosphatase 91 U/L (34-104) 09/05/17 17:13 Total Protein 7.0 gm/dL (6.0-8.3) 09/05/17 17:13 Albumin 3.8 gm/dL (3.7-5.3) 09/05/17 17:13 Globulin 3.2 gm/dL 09/05/17 17:13 Albumin/Globulin Ratio 1.2 (1.0-1.8) 09/05/17 17:13 Urine Source CLEAN C 09/05/17 17:50 Urine Color YELLOW 09/05/17 17:50 Urine Clarity CLEAR (CLEAR) 09/05/17 17:50 Urine pH 6.0 (4.6 - 8.0) 09/05/17 17:50 Ur Specific [place] 1.020 (1.005-1.030) 09/05/17 17:50 Urine Protein NEGATIVE mg/dL (NEGATIVE) 09/05/17 17:50 Urine Glucose (UA) NEGATIVE mg/dL (NEGATIVE) 09/05/17 17:50 Urine Ketones NEGATIVE mg/dL (NEGATIVE) 09/05/17 17:50 Urine Blood NEGATIVE (NEGATIVE) 09/05/17 17:50 Urine Nitrate NEGATIVE (NEGATIVE) 09/05/17 17:50 Urine Bilirubin NEGATIVE (NEGATIVE) 09/05/17 17:50 Urine Urobilinogen 0.2 E.U./dL (0.2 - 1.0) 09/05/17 17:50 Ur Leukocyte Esterase NEGATIVE (NEGATIVE) 09/05/17 17:50 Urine RBC NONE SEEN /hpf (0-5) 09/05/17 17:50 Urine WBC NONE SEEN /hpf (0-5) 09/05/17 17:50 Ur Epithelial Cells NONE SEEN /lpf (FEW) 09/05/17 17:50 Urine Bacteria NONE SEEN /hpf (NONE SEEN) 09/05/17 17:50 Valproic Acid 45.3 ug/mL (50.0-100.0) L 09/20/17 12:45 - Physical Exam Vitals and I&O: Vital Signs Temp 98.2 F 09/22/17 06:33 Pulse 71 09/22/17 06:33 Resp 20 09/22/17 06:33 BP 101/57 09/22/17 06:33 Pulse Ox 95 09/22/17 06:33 Intake & Output 09/21/17 09/22/17 09/22/17 18:59 06:59 18:59 Intake Total 900 180 Balance 900 180 Intake: Oral 900 180 Other: # Voids 3 1 # Bowel Movements 1 0 Active Medications: Current Medications Acetaminophen (Tylenol) 650 mg PO Q4HR PRN PRN Reason: Mild Pain / Temp above 100 Stop: 11/04/17 21:49 Al Hydrox/Mg Hydrox/Simethicone (Maalox) 30 ml PO Q4HR PRN PRN Reason: GI DISTRESS Stop: 11/04/17 21:49 Aspirin (Aspirin Chewable) 81 mg PO DAILY [facility] Stop: 11/05/17 08:59 Last Admin: 09/21/17 09:49 Dose: 81 mg Bupropion HCl (Wellbutrin Xl) 300 mg PO DAILY [facility]; Protocol Stop: 11/05/17 08:59 Last Admin: 09/21/17 09:48 Dose: 300 mg Donepezil HCl (Aricept) 20 mg PO DAILY [facility] Stop: 11/05/17 08:59 Last Admin: 09/21/17 09:49 Dose: 20 mg Folic Acid (Folate) 1 mg PO DAILY [facility] Stop: 11/05/17 08:59 Last Admin: 09/21/17 09:49 Dose: 1 mg Lorazepam (Ativan) 1 mg IM Q6H PRN; Protocol PRN Reason: Agitation Stop: 11/16/17 07:59 Last Admin: 09/17/17 11:23 Dose: 1 mg Magnesium Hydroxide (Milk Of Magnesia) 30 ml PO HS PRN PRN Reason: Constipation Memantine (Namenda) 10 mg PO BID [facility] Stop: 11/05/17 08:59 Last Admin: 09/21/17 17:38 Dose: 10 mg Multivitamins/Vitamin C (Theragran) 1 tab PO DAILY [facility] Stop: 11/05/17 08:59 Last Admin: 09/21/17 09:49 Dose: 1 tab Quetiapine Fumarate (Seroquel) 75 mg PO BID [facility]; Protocol Stop: 11/20/17 16:59 Last Admin: 09/21/17 17:37 Dose: 75 mg Valproate Sodium (Depakene) 250 mg PO BID [facility]; Protocol Stop: 11/16/17 16:59 Last Admin: 09/21/17 17:37 Dose: 250 mg Venlafaxine HCl (Effexor Xr) 300 mg PO DAILY [facility]; Protocol Stop: 11/05/17 08:59 Last Admin: 09/21/17 09:48 Dose: 300 mg General: Alert, No acute distress HEENT: Atraumatic, PERRLA, EOMI Neck: Supple, JVD Cardiovascular: Regular rate, Normal S1, Normal S2 Lungs: Clear to auscultation Abdomen: Bowel sounds, Soft Extremities: no Clubbing, no Cyanosis, no Edema Neurological: Normal gait, Normal speech Skin: no Rash Assessment/Plan - Assessment Assessment: Acute Psychosis with aggressive attitude Bipolar Disorder HTN Major Depression Generalized Weakness - Plan Plan: continue current treatment Nutritional Asmnt/Malnutr-PDOC - Dietary Evaluation Malnutrition Findings (Please click <Entered> for more info): Nutritional Asmnt/Malnutrition Start: 09/10/17 14: 01 Text: Status: Complete Freq: Protocol: Document 09/10/17 14:01 CHINGG (Rec: 09/10/17 14:06 [id number]) Nutritional Asmnt/Malnutrition Patient General Information Nutritional Screening Low Risk Diagnosis psychosis aggressive behavior Pertinent Medical Hx/Surgical Hx HTN, hyperlipidemia, dementia, psychosis, bipolar disorder, generalizaed muscle weakness Subjective Information Pt seen sitting in castro-chair at time of visit, confused, not able to communicate. Per EMR< PO intake 75-100% of meals. Current Diet Order/ Nutrition Support regular Pertinent Labs 09/04 nutrition labs WNL Nutritional Hx/Data Height 1.7 m Height (Calculated Centimeters) 170.2 Current Weight (lbs) 77.111 kg Weight (Calculated Kilograms) 77.1 Weight (Calculated Grams) 77993.7 [place] Body Weight 135 Body Mass Index (BMI) 26.6 Weight Status Overweight GI Symptoms GI Symptoms None Last BM 09/09 Difficult in: None Skin Integrity/Comment: dryness Current %PO Good (75-100%) Estimated Nutritional Goals BEE in Kcals: Using Current wt Calories/Kcals/Kg 23-27 Kcals Calculated 6436-2637 Protein: Using Current wt Protein g/k.8-1 Protein Calculated 62-77 Fluid: ml 1771-2079ml (1ml/kcal) Nutritional Problem No current Nutrition Prob Problem N/A Malnutrition Alert Is there a minimum of two criteria No selected? Query Text:Check all the applicable criteria. A minimum of two criteria are recommended for diagnosis of either severe or non-severe malnutrition. Malnutrition Related to Morbid Obesity Malnutrition related to morbid obesity No Intervention/Recommendation Comments 1. Continue with current diet as ordered. 2. Monitor PO intake, wt, labs and skin integrity 3. F/U as low risk in 7 days, 09/17 Expected Outcomes/Goals Expected Outcomes/Goals 1. PO intake to meet at least 75% of nutritional needs. 2. Wt stability, skin to remain intact, labs to approach WNL.
[2017-09-22] MEDS: buPROPion XL 150 mg T 24 H PO SCH (09:28)
[2017-09-22] MEDS: Multivitamin Tab PO SCH (09:28)
[2017-09-22] MEDS: Aspirin 81mg Chewable Tab PO SCH (09:29)
--- NOTE | 2017-09-22 22:51 | Progress Notes ---
DATE: 09/22/2017 Case was discussed with staff of the patient, reviewed records. The patient continues to be easily agitated, continues to have poor insight. Continues to be unable to make safe plan for self-care. Continues to have irritability. She is compliant with the medication with no side effects, no sedation or nausea and no extrapyramidal symptoms. She tolerated the increase in her Seroquel to 75 mg twice a day with no side effects, no sedation, no nausea, no extrapyramidal symptoms. Her Depakote level was 45.3. Urinalysis within normal range. Chemistry panel within normal range. CBC with low lymphocyte and low hematocrit, but hemoglobin within normal range. Low MCH. I will continue outpatient group therapy, milieu therapy and adjust the medications as needed. [facility]# [id number]
--- NOTE | 2017-09-23 06:35 | General Progress Note ---
Subjective - Review of Systems Service Date: 09/23/17 Subjective: Awake, alert but confused VS T98.1 P 92 BP 118/72 R 20 Objective - Results Result Diagrams: 09/05/17 17:13 09/05/17 17:13 Recent Labs: Laboratory Last Values WBC 7.7 Th/cmm (4.8-10.8) 09/05/17 17:13 RBC 4.26 Mil/cmm (3.80-5.10) 09/05/17 17:13 Hgb 13.9 gm/dL (12-16) 09/05/17 17:13 Hct 40.9 % (41.0-60) L 09/05/17 17:13 MCV 96.1 fl (81-100) 09/05/17 17:13 MCH 32.5 pg (27.0-31.0) H 09/05/17 17:13 MCHC Differential 33.9 pg (28.0-36.0) 09/05/17 17:13 RDW 14.5 % (11.5-20.0) 09/05/17 17:13 Plt Count 327 Th/cmm (150-400) 09/05/17 17:13 MPV 7.8 fl 09/05/17 17:13 Neutrophils % 74.8 % (40.0-80.0) 09/05/17 17:13 Lymphocytes % 18.2 % (20.0-50.0) L 09/05/17 17:13 Monocytes % 5.0 % (2.0-10.0) 09/05/17 17:13 Eosinophils % 1.8 % (0.0-5.0) 09/05/17 17:13 Basophils % 0.2 % (0.0-2.0) 09/05/17 17:13 Sodium 136 mEq/L (136-145) 09/05/17 17:13 Potassium 4.1 mEq/L (3.5-5.1) 09/05/17 17:13 Chloride 103 mEq/L (98-107) 09/05/17 17:13 Carbon Dioxide 25.8 mEq/L (21.0-31.0) 09/05/17 17:13 Anion Gap 11.3 (7.0-16.0) 09/05/17 17:13 BUN 19 mg/dL (7-25) 09/05/17 17:13 Creatinine 0.7 mg/dL (0.6-1.2) 09/05/17 17:13 Est GFR ( Amer) > 60.0 ml/min (>90) 09/05/17 17:13 Est GFR (Non-Af Amer) > 60.0 ml/min 09/05/17 17:13 BUN/Creatinine Ratio 27.1 09/05/17 17:13 Glucose 85 mg/dL (70-105) 09/05/17 17:13 Calcium 9.4 mg/dL (8.6-10.3) 09/05/17 17:13 Total Bilirubin 0.2 mg/dL (0.3-1.0) L 09/05/17 17:13 AST 18 U/L (13-39) 09/05/17 17:13 ALT 29 U/L (7-52) 09/05/17 17:13 Alkaline Phosphatase 91 U/L (34-104) 09/05/17 17:13 Total Protein 7.0 gm/dL (6.0-8.3) 09/05/17 17:13 Albumin 3.8 gm/dL (3.7-5.3) 09/05/17 17:13 Globulin 3.2 gm/dL 09/05/17 17:13 Albumin/Globulin Ratio 1.2 (1.0-1.8) 09/05/17 17:13 Urine Source CLEAN C 09/05/17 17:50 Urine Color YELLOW 09/05/17 17:50 Urine Clarity CLEAR (CLEAR) 09/05/17 17:50 Urine pH 6.0 (4.6 - 8.0) 09/05/17 17:50 Ur Specific [place] 1.020 (1.005-1.030) 09/05/17 17:50 Urine Protein NEGATIVE mg/dL (NEGATIVE) 09/05/17 17:50 Urine Glucose (UA) NEGATIVE mg/dL (NEGATIVE) 09/05/17 17:50 Urine Ketones NEGATIVE mg/dL (NEGATIVE) 09/05/17 17:50 Urine Blood NEGATIVE (NEGATIVE) 09/05/17 17:50 Urine Nitrate NEGATIVE (NEGATIVE) 09/05/17 17:50 Urine Bilirubin NEGATIVE (NEGATIVE) 09/05/17 17:50 Urine Urobilinogen 0.2 E.U./dL (0.2 - 1.0) 09/05/17 17:50 Ur Leukocyte Esterase NEGATIVE (NEGATIVE) 09/05/17 17:50 Urine RBC NONE SEEN /hpf (0-5) 09/05/17 17:50 Urine WBC NONE SEEN /hpf (0-5) 09/05/17 17:50 Ur Epithelial Cells NONE SEEN /lpf (FEW) 09/05/17 17:50 Urine Bacteria NONE SEEN /hpf (NONE SEEN) 09/05/17 17:50 Valproic Acid 45.3 ug/mL (50.0-100.0) L 09/20/17 12:45 - Physical Exam Vitals and I&O: Vital Signs Temp 98.1 F 09/23/17 06:20 Pulse 92 09/23/17 06:20 Resp 20 09/23/17 06:20 BP 118/72 09/23/17 06:20 Pulse Ox 94 09/23/17 06:20 Intake & Output 09/22/17 09/22/17 09/23/17 06:59 18:59 06:59 Intake Total 180 240 Balance 180 240 Weight (lbs) 77.111 kg Intake: Oral 180 240 Other: # Voids 1 3 # Bowel Movements 0 0 Weight Source Bedscale Active Medications: Current Medications Acetaminophen (Tylenol) 650 mg PO Q4HR PRN PRN Reason: Mild Pain / Temp above 100 Stop: 11/04/17 21:49 Al Hydrox/Mg Hydrox/Simethicone (Maalox) 30 ml PO Q4HR PRN PRN Reason: GI DISTRESS Stop: 11/04/17 21:49 Aspirin (Aspirin Chewable) 81 mg PO DAILY [facility] Stop: 11/05/17 08:59 Last Admin: 09/22/17 09:29 Dose: 81 mg Bupropion HCl (Wellbutrin Xl) 300 mg PO DAILY [facility]; Protocol Stop: 11/05/17 08:59 Last Admin: 09/22/17 09:28 Dose: 300 mg Donepezil HCl (Aricept) 20 mg PO DAILY [facility] Stop: 11/05/17 08:59 Last Admin: 09/22/17 09:28 Dose: 20 mg Folic Acid (Folate) 1 mg PO DAILY [facility] Stop: 11/05/17 08:59 Last Admin: 09/22/17 09:29 Dose: 1 mg Lorazepam (Ativan) 1 mg IM Q6H PRN; Protocol PRN Reason: Agitation Stop: 11/16/17 07:59 Last Admin: 09/22/17 22:02 Dose: 1 mg Magnesium Hydroxide (Milk Of Magnesia) 30 ml PO HS PRN PRN Reason: Constipation Memantine (Namenda) 10 mg PO BID [facility] Stop: 11/05/17 08:59 Last Admin: 09/22/17 16:49 Dose: 10 mg Multivitamins/Vitamin C (Theragran) 1 tab PO DAILY [facility] Stop: 11/05/17 08:59 Last Admin: 09/22/17 09:28 Dose: 1 tab Quetiapine Fumarate (Seroquel) 75 mg PO BID [facility]; Protocol Stop: 11/20/17 16:59 Last Admin: 09/22/17 16:48 Dose: 75 mg Valproate Sodium (Depakene) 250 mg PO BID [facility]; Protocol Stop: 11/16/17 16:59 Last Admin: 09/22/17 16:49 Dose: 250 mg Venlafaxine HCl (Effexor Xr) 300 mg PO DAILY [facility]; Protocol Stop: 11/05/17 08:59 Last Admin: 09/22/17 09:28 Dose: 300 mg General: Alert, No acute distress HEENT: Atraumatic, PERRLA, EOMI Neck: Supple, JVD Cardiovascular: Regular rate, Normal S1, Normal S2 Lungs: Clear to auscultation Abdomen: Bowel sounds, Soft Extremities: no Clubbing, no Cyanosis, no Edema Neurological: Normal gait, Normal speech Skin: no Rash Assessment/Plan - Assessment Assessment: Acute Psychosis with aggressive attitude Bipolar Disorder HTN Major Depression Generalized Weakness - Plan Plan: continue current treatment Nutritional Asmnt/Malnutr-PDOC - Dietary Evaluation Malnutrition Findings (Please click <Entered> for more info): Nutritional Asmnt/Malnutrition Start: 09/10/17 14: 01 Text: Status: Complete Freq: Protocol: Document 09/10/17 14:01 KATLYN (Rec: 09/10/17 14:06 KATLYN [email or web address]) Nutritional Asmnt/Malnutrition Patient General Information Nutritional Screening Low Risk Diagnosis psychosis aggressive behavior Pertinent Medical Hx/Surgical Hx HTN, hyperlipidemia, dementia, psychosis, bipolar disorder, generalizaed muscle weakness Subjective Information Pt seen sitting in castro-chair at time of visit, confused, not able to communicate. Per EMR< PO intake 75-100% of meals. Current Diet Order/ Nutrition Support regular Pertinent Labs 09/04 nutrition labs WNL Nutritional Hx/Data Height 1.7 m Height (Calculated Centimeters) 170.2 Current Weight (lbs) 77.111 kg Weight (Calculated Kilograms) 77.1 Weight (Calculated Grams) 36651.7 [place] Body Weight 135 Body Mass Index (BMI) 26.6 Weight Status Overweight GI Symptoms GI Symptoms None Last BM 09/09 Difficult in: None Skin Integrity/Comment: dryness Current %PO Good (75-100%) Estimated Nutritional Goals BEE in Kcals: Using Current wt Calories/Kcals/Kg 23-27 Kcals Calculated 0669-0235 Protein: Using Current wt Protein g/k.8-1 Protein Calculated 62-77 Fluid: ml 1771-2079ml (1ml/kcal) Nutritional Problem No current Nutrition Prob Problem N/A Malnutrition Alert Is there a minimum of two criteria No selected? Query Text:Check all the applicable criteria. A minimum of two criteria are recommended for diagnosis of either severe or non-severe malnutrition. Malnutrition Related to Morbid Obesity Malnutrition related to morbid obesity No Intervention/Recommendation Comments 1. Continue with current diet as ordered. 2. Monitor PO intake, wt, labs and skin integrity 3. F/U as low risk in 7 days, 09/17 Expected Outcomes/Goals Expected Outcomes/Goals 1. PO intake to meet at least 75% of nutritional needs. 2. Wt stability, skin to remain intact, labs to approach WNL.
[2017-09-23] MEDS: Aspirin 81mg Chewable Tab PO SCH (08:24)
[2017-09-23] MEDS: Multivitamin Tab PO SCH (08:24)
[2017-09-23] MEDS: buPROPion XL 150 mg T 24 H PO SCH (08:25)
--- NOTE | 2017-09-23 21:23 | Progress Notes ---
DATE: 09/23/2017 Case was discussed with staff of the patient, reviewed the treatment plans and goals. The patient ____ issues. The patient continues to have episodes of irritability, agitation, confused, demented, unable to make safe plan for self-care. Continues to be unpredictable, impulsive, needing redirection, tolerating increase in the Seroquel with no side effects. I took her off Abilify. This was not working and we will continue outpatient group therapy, milieu therapy, adjust the medication as needed. JOB# [id number]
--- NOTE | 2017-09-24 07:02 | General Progress Note ---
Subjective - Review of Systems Service Date: 09/24/17 Subjective: Awake, alert but confused VS T97.6 P 75 BP 121/72 R 19 Objective - Results Result Diagrams: 09/05/17 17:13 09/05/17 17:13 Recent Labs: Laboratory Last Values WBC 7.7 Th/cmm (4.8-10.8) 09/05/17 17:13 RBC 4.26 Mil/cmm (3.80-5.10) 09/05/17 17:13 Hgb 13.9 gm/dL (12-16) 09/05/17 17:13 Hct 40.9 % (41.0-60) L 09/05/17 17:13 MCV 96.1 fl (81-100) 09/05/17 17:13 MCH 32.5 pg (27.0-31.0) H 09/05/17 17:13 MCHC Differential 33.9 pg (28.0-36.0) 09/05/17 17:13 RDW 14.5 % (11.5-20.0) 09/05/17 17:13 Plt Count 327 Th/cmm (150-400) 09/05/17 17:13 MPV 7.8 fl 09/05/17 17:13 Neutrophils % 74.8 % (40.0-80.0) 09/05/17 17:13 Lymphocytes % 18.2 % (20.0-50.0) L 09/05/17 17:13 Monocytes % 5.0 % (2.0-10.0) 09/05/17 17:13 Eosinophils % 1.8 % (0.0-5.0) 09/05/17 17:13 Basophils % 0.2 % (0.0-2.0) 09/05/17 17:13 Sodium 136 mEq/L (136-145) 09/05/17 17:13 Potassium 4.1 mEq/L (3.5-5.1) 09/05/17 17:13 Chloride 103 mEq/L (98-107) 09/05/17 17:13 Carbon Dioxide 25.8 mEq/L (21.0-31.0) 09/05/17 17:13 Anion Gap 11.3 (7.0-16.0) 09/05/17 17:13 BUN 19 mg/dL (7-25) 09/05/17 17:13 Creatinine 0.7 mg/dL (0.6-1.2) 09/05/17 17:13 Est GFR ( Amer) > 60.0 ml/min (>90) 09/05/17 17:13 Est GFR (Non-Af Amer) > 60.0 ml/min 09/05/17 17:13 BUN/Creatinine Ratio 27.1 09/05/17 17:13 Glucose 85 mg/dL (70-105) 09/05/17 17:13 Calcium 9.4 mg/dL (8.6-10.3) 09/05/17 17:13 Total Bilirubin 0.2 mg/dL (0.3-1.0) L 09/05/17 17:13 AST 18 U/L (13-39) 09/05/17 17:13 ALT 29 U/L (7-52) 09/05/17 17:13 Alkaline Phosphatase 91 U/L (34-104) 09/05/17 17:13 Total Protein 7.0 gm/dL (6.0-8.3) 09/05/17 17:13 Albumin 3.8 gm/dL (3.7-5.3) 09/05/17 17:13 Globulin 3.2 gm/dL 09/05/17 17:13 Albumin/Globulin Ratio 1.2 (1.0-1.8) 09/05/17 17:13 Urine Source CLEAN C 09/05/17 17:50 Urine Color YELLOW 09/05/17 17:50 Urine Clarity CLEAR (CLEAR) 09/05/17 17:50 Urine pH 6.0 (4.6 - 8.0) 09/05/17 17:50 Ur Specific [place] 1.020 (1.005-1.030) 09/05/17 17:50 Urine Protein NEGATIVE mg/dL (NEGATIVE) 09/05/17 17:50 Urine Glucose (UA) NEGATIVE mg/dL (NEGATIVE) 09/05/17 17:50 Urine Ketones NEGATIVE mg/dL (NEGATIVE) 09/05/17 17:50 Urine Blood NEGATIVE (NEGATIVE) 09/05/17 17:50 Urine Nitrate NEGATIVE (NEGATIVE) 09/05/17 17:50 Urine Bilirubin NEGATIVE (NEGATIVE) 09/05/17 17:50 Urine Urobilinogen 0.2 E.U./dL (0.2 - 1.0) 09/05/17 17:50 Ur Leukocyte Esterase NEGATIVE (NEGATIVE) 09/05/17 17:50 Urine RBC NONE SEEN /hpf (0-5) 09/05/17 17:50 Urine WBC NONE SEEN /hpf (0-5) 09/05/17 17:50 Ur Epithelial Cells NONE SEEN /lpf (FEW) 09/05/17 17:50 Urine Bacteria NONE SEEN /hpf (NONE SEEN) 09/05/17 17:50 Valproic Acid 45.3 ug/mL (50.0-100.0) L 09/20/17 12:45 - Physical Exam Vitals and I&O: Vital Signs Temp 97.6 F 09/24/17 06:18 Pulse 75 09/24/17 06:18 Resp 19 09/24/17 06:18 BP 121/72 09/24/17 06:18 Pulse Ox 97 09/24/17 06:18 Intake & Output 09/23/17 09/24/17 09/24/17 18:59 06:59 18:59 Intake Total 120 Balance 120 Intake: Oral 120 Other: # Voids 3 Active Medications: Current Medications Acetaminophen (Tylenol) 650 mg PO Q4HR PRN PRN Reason: Mild Pain / Temp above 100 Stop: 11/04/17 21:49 Al Hydrox/Mg Hydrox/Simethicone (Maalox) 30 ml PO Q4HR PRN PRN Reason: GI DISTRESS Stop: 11/04/17 21:49 Aspirin (Aspirin Chewable) 81 mg PO DAILY [facility] Stop: 11/05/17 08:59 Last Admin: 09/23/17 08:24 Dose: 81 mg Bupropion HCl (Wellbutrin Xl) 300 mg PO DAILY [facility]; Protocol Stop: 11/05/17 08:59 Last Admin: 09/23/17 08:25 Dose: 300 mg Donepezil HCl (Aricept) 20 mg PO DAILY [facility] Stop: 11/05/17 08:59 Last Admin: 09/23/17 08:25 Dose: 20 mg Folic Acid (Folate) 1 mg PO DAILY [facility] Stop: 11/05/17 08:59 Last Admin: 09/23/17 08:24 Dose: 1 mg Lorazepam (Ativan) 1 mg IM Q6H PRN; Protocol PRN Reason: Agitation Stop: 11/16/17 07:59 Last Admin: 09/24/17 00:24 Dose: 1 mg Magnesium Hydroxide (Milk Of Magnesia) 30 ml PO HS PRN PRN Reason: Constipation Memantine (Namenda) 10 mg PO BID [facility] Stop: 11/05/17 08:59 Last Admin: 09/23/17 16:37 Dose: 10 mg Multivitamins/Vitamin C (Theragran) 1 tab PO DAILY [facility] Stop: 11/05/17 08:59 Last Admin: 09/23/17 08:24 Dose: 1 tab Quetiapine Fumarate (Seroquel) 75 mg PO BID [facility]; Protocol Stop: 11/20/17 16:59 Last Admin: 09/23/17 16:37 Dose: 75 mg Valproate Sodium (Depakene) 250 mg PO BID [facility]; Protocol Stop: 11/16/17 16:59 Last Admin: 09/23/17 16:37 Dose: 250 mg Venlafaxine HCl (Effexor Xr) 300 mg PO DAILY [facility]; Protocol Stop: 11/05/17 08:59 Last Admin: 09/23/17 08:26 Dose: 300 mg General: Alert, No acute distress HEENT: Atraumatic, PERRLA, EOMI Neck: Supple, JVD Cardiovascular: Regular rate, Normal S1, Normal S2 Lungs: Clear to auscultation Abdomen: Bowel sounds, Soft Extremities: no Clubbing, no Cyanosis, no Edema Neurological: Normal gait, Normal speech Skin: no Rash Assessment/Plan - Assessment Assessment: Acute Psychosis with aggressive attitude Bipolar Disorder HTN Major Depression Generalized Weakness - Plan Plan: continue current treatment Nutritional Asmnt/Malnutr-PDOC - Dietary Evaluation Malnutrition Findings (Please click <Entered> for more info): Nutritional Asmnt/Malnutrition Start: 09/10/17 14: 01 Text: Status: Complete Freq: Protocol: Document 09/10/17 14:01 KATLYN (Rec: 09/10/17 14:06 KATLYN [email or web address]) Nutritional Asmnt/Malnutrition Patient General Information Nutritional Screening Low Risk Diagnosis psychosis aggressive behavior Pertinent Medical Hx/Surgical Hx HTN, hyperlipidemia, dementia, psychosis, bipolar disorder, generalizaed muscle weakness Subjective Information Pt seen sitting in castro-chair at time of visit, confused, not able to communicate. Per EMR< PO intake 75-100% of meals. Current Diet Order/ Nutrition Support regular Pertinent Labs 09/04 nutrition labs WNL Nutritional Hx/Data Height 1.7 m Height (Calculated Centimeters) 170.2 Current Weight (lbs) 77.111 kg Weight (Calculated Kilograms) 77.1 Weight (Calculated Grams) 97933.7 [place] Body Weight 135 Body Mass Index (BMI) 26.6 Weight Status Overweight GI Symptoms GI Symptoms None Last BM 09/09 Difficult in: None Skin Integrity/Comment: dryness Current %PO Good (75-100%) Estimated Nutritional Goals BEE in Kcals: Using Current wt Calories/Kcals/Kg 23-27 Kcals Calculated 0222-0293 Protein: Using Current wt Protein g/k.8-1 Protein Calculated 62-77 Fluid: ml 1771-2079ml (1ml/kcal) Nutritional Problem No current Nutrition Prob Problem N/A Malnutrition Alert Is there a minimum of two criteria No selected? Query Text:Check all the applicable criteria. A minimum of two criteria are recommended for diagnosis of either severe or non-severe malnutrition. Malnutrition Related to Morbid Obesity Malnutrition related to morbid obesity No Intervention/Recommendation Comments 1. Continue with current diet as ordered. 2. Monitor PO intake, wt, labs and skin integrity 3. F/U as low risk in 7 days, 09/17 Expected Outcomes/Goals Expected Outcomes/Goals 1. PO intake to meet at least 75% of nutritional needs. 2. Wt stability, skin to remain intact, labs to approach WNL.
[2017-09-24] MEDS: Aspirin 81mg Chewable Tab PO SCH (08:31)
[2017-09-24] MEDS: buPROPion XL 150 mg T 24 H PO SCH (08:31)
[2017-09-24] MEDS: Multivitamin Tab PO SCH (08:32)
--- NOTE | 2017-09-24 21:19 | Progress Notes ---
DATE: 09/24/2017 SUBJECTIVE: Case was discussed with staff of the patient, reviewed records. The patient continues to be internally preoccupied, living in her own world, continues to have poor insight, unpredictable, impulsive, needing redirection; however, in general, she is not as aggressive, not hitting people as she was. She is sleeping better, eating better. No side effects to the medication, no sedation, no nausea, no extrapyramidal symptoms. We will continue to work with the patient in group therapy, milieu therapy, and adjust the medications as needed. JOB# [id number]
--- NOTE | 2017-09-25 07:34 | General Progress Note ---
Subjective - Review of Systems Service Date: 09/25/17 Subjective: Awake, alert but confused VS T97.6 P 75 BP 121/72 R 19 Objective - Results Result Diagrams: 09/05/17 17:13 09/05/17 17:13 Recent Labs: Laboratory Last Values WBC 7.7 Th/cmm (4.8-10.8) 09/05/17 17:13 RBC 4.26 Mil/cmm (3.80-5.10) 09/05/17 17:13 Hgb 13.9 gm/dL (12-16) 09/05/17 17:13 Hct 40.9 % (41.0-60) L 09/05/17 17:13 MCV 96.1 fl (81-100) 09/05/17 17:13 MCH 32.5 pg (27.0-31.0) H 09/05/17 17:13 MCHC Differential 33.9 pg (28.0-36.0) 09/05/17 17:13 RDW 14.5 % (11.5-20.0) 09/05/17 17:13 Plt Count 327 Th/cmm (150-400) 09/05/17 17:13 MPV 7.8 fl 09/05/17 17:13 Neutrophils % 74.8 % (40.0-80.0) 09/05/17 17:13 Lymphocytes % 18.2 % (20.0-50.0) L 09/05/17 17:13 Monocytes % 5.0 % (2.0-10.0) 09/05/17 17:13 Eosinophils % 1.8 % (0.0-5.0) 09/05/17 17:13 Basophils % 0.2 % (0.0-2.0) 09/05/17 17:13 Sodium 136 mEq/L (136-145) 09/05/17 17:13 Potassium 4.1 mEq/L (3.5-5.1) 09/05/17 17:13 Chloride 103 mEq/L (98-107) 09/05/17 17:13 Carbon Dioxide 25.8 mEq/L (21.0-31.0) 09/05/17 17:13 Anion Gap 11.3 (7.0-16.0) 09/05/17 17:13 BUN 19 mg/dL (7-25) 09/05/17 17:13 Creatinine 0.7 mg/dL (0.6-1.2) 09/05/17 17:13 Est GFR ( Amer) > 60.0 ml/min (>90) 09/05/17 17:13 Est GFR (Non-Af Amer) > 60.0 ml/min 09/05/17 17:13 BUN/Creatinine Ratio 27.1 09/05/17 17:13 Glucose 85 mg/dL (70-105) 09/05/17 17:13 Calcium 9.4 mg/dL (8.6-10.3) 09/05/17 17:13 Total Bilirubin 0.2 mg/dL (0.3-1.0) L 09/05/17 17:13 AST 18 U/L (13-39) 09/05/17 17:13 ALT 29 U/L (7-52) 09/05/17 17:13 Alkaline Phosphatase 91 U/L (34-104) 09/05/17 17:13 Total Protein 7.0 gm/dL (6.0-8.3) 09/05/17 17:13 Albumin 3.8 gm/dL (3.7-5.3) 09/05/17 17:13 Globulin 3.2 gm/dL 09/05/17 17:13 Albumin/Globulin Ratio 1.2 (1.0-1.8) 09/05/17 17:13 Urine Source CLEAN C 09/05/17 17:50 Urine Color YELLOW 09/05/17 17:50 Urine Clarity CLEAR (CLEAR) 09/05/17 17:50 Urine pH 6.0 (4.6 - 8.0) 09/05/17 17:50 Ur Specific [place] 1.020 (1.005-1.030) 09/05/17 17:50 Urine Protein NEGATIVE mg/dL (NEGATIVE) 09/05/17 17:50 Urine Glucose (UA) NEGATIVE mg/dL (NEGATIVE) 09/05/17 17:50 Urine Ketones NEGATIVE mg/dL (NEGATIVE) 09/05/17 17:50 Urine Blood NEGATIVE (NEGATIVE) 09/05/17 17:50 Urine Nitrate NEGATIVE (NEGATIVE) 09/05/17 17:50 Urine Bilirubin NEGATIVE (NEGATIVE) 09/05/17 17:50 Urine Urobilinogen 0.2 E.U./dL (0.2 - 1.0) 09/05/17 17:50 Ur Leukocyte Esterase NEGATIVE (NEGATIVE) 09/05/17 17:50 Urine RBC NONE SEEN /hpf (0-5) 09/05/17 17:50 Urine WBC NONE SEEN /hpf (0-5) 09/05/17 17:50 Ur Epithelial Cells NONE SEEN /lpf (FEW) 09/05/17 17:50 Urine Bacteria NONE SEEN /hpf (NONE SEEN) 09/05/17 17:50 Valproic Acid 45.3 ug/mL (50.0-100.0) L 09/20/17 12:45 - Physical Exam Vitals and I&O: Vital Signs Temp 98.2 F 09/25/17 06:23 Pulse 71 09/25/17 06:23 Resp 20 09/25/17 06:23 BP 112/76 09/25/17 06:23 Pulse Ox 98 09/25/17 06:23 Intake & Output 09/24/17 09/25/17 09/25/17 18:59 06:59 18:59 Intake Total 800 120 Balance 800 120 Intake: Oral 800 120 Other: # Voids 3 2 # Bowel Movements 0 Active Medications: Current Medications Acetaminophen (Tylenol) 650 mg PO Q4HR PRN PRN Reason: Mild Pain / Temp above 100 Stop: 11/04/17 21:49 Al Hydrox/Mg Hydrox/Simethicone (Maalox) 30 ml PO Q4HR PRN PRN Reason: GI DISTRESS Stop: 11/04/17 21:49 Aspirin (Aspirin Chewable) 81 mg PO DAILY [facility] Stop: 11/05/17 08:59 Last Admin: 09/24/17 08:31 Dose: 81 mg Bupropion HCl (Wellbutrin Xl) 300 mg PO DAILY [facility]; Protocol Stop: 11/05/17 08:59 Last Admin: 09/24/17 08:31 Dose: 300 mg Donepezil HCl (Aricept) 20 mg PO DAILY [facility] Stop: 11/05/17 08:59 Last Admin: 09/24/17 08:31 Dose: 20 mg Folic Acid (Folate) 1 mg PO DAILY [facility] Stop: 11/05/17 08:59 Last Admin: 09/24/17 08:32 Dose: 1 mg Lorazepam (Ativan) 1 mg IM Q6H PRN; Protocol PRN Reason: Agitation Stop: 11/16/17 07:59 Last Admin: 09/24/17 00:24 Dose: 1 mg Magnesium Hydroxide (Milk Of Magnesia) 30 ml PO HS PRN PRN Reason: Constipation Memantine (Namenda) 10 mg PO BID [facility] Stop: 11/05/17 08:59 Last Admin: 09/24/17 17:31 Dose: 10 mg Multivitamins/Vitamin C (Theragran) 1 tab PO DAILY [facility] Stop: 11/05/17 08:59 Last Admin: 09/24/17 08:32 Dose: 1 tab Quetiapine Fumarate (Seroquel) 75 mg PO BID [facility]; Protocol Stop: 11/20/17 16:59 Last Admin: 09/24/17 17:31 Dose: 75 mg Valproate Sodium (Depakene) 250 mg PO BID [facility]; Protocol Stop: 11/16/17 16:59 Last Admin: 09/24/17 17:30 Dose: 250 mg Venlafaxine HCl (Effexor Xr) 300 mg PO DAILY [facility]; Protocol Stop: 11/05/17 08:59 Last Admin: 09/24/17 08:33 Dose: 300 mg General: Alert, No acute distress HEENT: Atraumatic, PERRLA, EOMI Neck: Supple, JVD Cardiovascular: Regular rate, Normal S1, Normal S2 Lungs: Clear to auscultation Abdomen: Bowel sounds, Soft Extremities: no Clubbing, no Cyanosis, no Edema Neurological: Normal gait, Normal speech Skin: no Rash Assessment/Plan - Assessment Assessment: Acute Psychosis with aggressive attitude Bipolar Disorder HTN Major Depression Generalized Weakness - Plan Plan: continue current treatment Nutritional Asmnt/Malnutr-PDOC - Dietary Evaluation Malnutrition Findings (Please click <Entered> for more info): Nutritional Asmnt/Malnutrition Start: 09/10/17 14: 01 Text: Status: Complete Freq: Protocol: Document 09/10/17 14:01 KATLYN (Rec: 09/10/17 14:06 KATLYN [email or web address]) Nutritional Asmnt/Malnutrition Patient General Information Nutritional Screening Low Risk Diagnosis psychosis aggressive behavior Pertinent Medical Hx/Surgical Hx HTN, hyperlipidemia, dementia, psychosis, bipolar disorder, generalizaed muscle weakness Subjective Information Pt seen sitting in castro-chair at time of visit, confused, not able to communicate. Per EMR< PO intake 75-100% of meals. Current Diet Order/ Nutrition Support regular Pertinent Labs 09/04 nutrition labs WNL Nutritional Hx/Data Height 1.7 m Height (Calculated Centimeters) 170.2 Current Weight (lbs) 77.111 kg Weight (Calculated Kilograms) 77.1 Weight (Calculated Grams) 04400.7 [place] Body Weight 135 Body Mass Index (BMI) 26.6 Weight Status Overweight GI Symptoms GI Symptoms None Last BM 09/09 Difficult in: None Skin Integrity/Comment: dryness Current %PO Good (75-100%) Estimated Nutritional Goals BEE in Kcals: Using Current wt Calories/Kcals/Kg 23-27 Kcals Calculated 9019-9460 Protein: Using Current wt Protein g/k.8-1 Protein Calculated 62-77 Fluid: ml 1771-2079ml (1ml/kcal) Nutritional Problem No current Nutrition Prob Problem N/A Malnutrition Alert Is there a minimum of two criteria No selected? Query Text:Check all the applicable criteria. A minimum of two criteria are recommended for diagnosis of either severe or non-severe malnutrition. Malnutrition Related to Morbid Obesity Malnutrition related to morbid obesity No Intervention/Recommendation Comments 1. Continue with current diet as ordered. 2. Monitor PO intake, wt, labs and skin integrity 3. F/U as low risk in 7 days, 09/17 Expected Outcomes/Goals Expected Outcomes/Goals 1. PO intake to meet at least 75% of nutritional needs. 2. Wt stability, skin to remain intact, labs to approach WNL.
[2017-09-25] MEDS: Multivitamin Tab PO SCH (08:26)
[2017-09-25] MEDS: buPROPion XL 150 mg T 24 H PO SCH (08:26)
[2017-09-25] MEDS: Aspirin 81mg Chewable Tab PO SCH (08:27)
--- NOTE | 2017-09-25 22:48 | Progress Notes ---
DATE: 09/25/2017 Case was discussed with staff of the patient, reviewed records. The staff reports she is still psychotic, not ready to go to a lesser level of care. She continues to need redirection. She continues to be unpredictable and impulsive. She is also demented, confused, unpredictable, needing redirection. I will be increasing her Seroquel to 100 mg twice a day to help decrease her psychosis. So far, she is compliant with the medication with no side effects, no sedation, no nausea, no extrapyramidal symptoms. Her Depakote level is low at 45.3. I am planning to increase the dose a little bit to help improve her behavior, and so far, no side effects with the medication, no sedation, no nausea, no extrapyramidal symptoms. We will continue to work with the patient in group therapy and milieu therapy, adjust medications as needed. JOB# [id number]
--- NOTE | 2017-09-26 05:15 | General Progress Note ---
Subjective - Review of Systems Service Date: 09/26/17 Subjective: Awake, alert but confused VS T99.2 P 90 BP 120/67 R 19 Objective - Results Result Diagrams: 09/05/17 17:13 09/05/17 17:13 Recent Labs: Laboratory Last Values WBC 7.7 Th/cmm (4.8-10.8) 09/05/17 17:13 RBC 4.26 Mil/cmm (3.80-5.10) 09/05/17 17:13 Hgb 13.9 gm/dL (12-16) 09/05/17 17:13 Hct 40.9 % (41.0-60) L 09/05/17 17:13 MCV 96.1 fl (81-100) 09/05/17 17:13 MCH 32.5 pg (27.0-31.0) H 09/05/17 17:13 MCHC Differential 33.9 pg (28.0-36.0) 09/05/17 17:13 RDW 14.5 % (11.5-20.0) 09/05/17 17:13 Plt Count 327 Th/cmm (150-400) 09/05/17 17:13 MPV 7.8 fl 09/05/17 17:13 Neutrophils % 74.8 % (40.0-80.0) 09/05/17 17:13 Lymphocytes % 18.2 % (20.0-50.0) L 09/05/17 17:13 Monocytes % 5.0 % (2.0-10.0) 09/05/17 17:13 Eosinophils % 1.8 % (0.0-5.0) 09/05/17 17:13 Basophils % 0.2 % (0.0-2.0) 09/05/17 17:13 Sodium 136 mEq/L (136-145) 09/05/17 17:13 Potassium 4.1 mEq/L (3.5-5.1) 09/05/17 17:13 Chloride 103 mEq/L (98-107) 09/05/17 17:13 Carbon Dioxide 25.8 mEq/L (21.0-31.0) 09/05/17 17:13 Anion Gap 11.3 (7.0-16.0) 09/05/17 17:13 BUN 19 mg/dL (7-25) 09/05/17 17:13 Creatinine 0.7 mg/dL (0.6-1.2) 09/05/17 17:13 Est GFR ( Amer) > 60.0 ml/min (>90) 09/05/17 17:13 Est GFR (Non-Af Amer) > 60.0 ml/min 09/05/17 17:13 BUN/Creatinine Ratio 27.1 09/05/17 17:13 Glucose 85 mg/dL (70-105) 09/05/17 17:13 Calcium 9.4 mg/dL (8.6-10.3) 09/05/17 17:13 Total Bilirubin 0.2 mg/dL (0.3-1.0) L 09/05/17 17:13 AST 18 U/L (13-39) 09/05/17 17:13 ALT 29 U/L (7-52) 09/05/17 17:13 Alkaline Phosphatase 91 U/L (34-104) 09/05/17 17:13 Total Protein 7.0 gm/dL (6.0-8.3) 09/05/17 17:13 Albumin 3.8 gm/dL (3.7-5.3) 09/05/17 17:13 Globulin 3.2 gm/dL 09/05/17 17:13 Albumin/Globulin Ratio 1.2 (1.0-1.8) 09/05/17 17:13 Urine Source CLEAN C 09/05/17 17:50 Urine Color YELLOW 09/05/17 17:50 Urine Clarity CLEAR (CLEAR) 09/05/17 17:50 Urine pH 6.0 (4.6 - 8.0) 09/05/17 17:50 Ur Specific [place] 1.020 (1.005-1.030) 09/05/17 17:50 Urine Protein NEGATIVE mg/dL (NEGATIVE) 09/05/17 17:50 Urine Glucose (UA) NEGATIVE mg/dL (NEGATIVE) 09/05/17 17:50 Urine Ketones NEGATIVE mg/dL (NEGATIVE) 09/05/17 17:50 Urine Blood NEGATIVE (NEGATIVE) 09/05/17 17:50 Urine Nitrate NEGATIVE (NEGATIVE) 09/05/17 17:50 Urine Bilirubin NEGATIVE (NEGATIVE) 09/05/17 17:50 Urine Urobilinogen 0.2 E.U./dL (0.2 - 1.0) 09/05/17 17:50 Ur Leukocyte Esterase NEGATIVE (NEGATIVE) 09/05/17 17:50 Urine RBC NONE SEEN /hpf (0-5) 09/05/17 17:50 Urine WBC NONE SEEN /hpf (0-5) 09/05/17 17:50 Ur Epithelial Cells NONE SEEN /lpf (FEW) 09/05/17 17:50 Urine Bacteria NONE SEEN /hpf (NONE SEEN) 09/05/17 17:50 Valproic Acid 45.3 ug/mL (50.0-100.0) L 09/20/17 12:45 - Physical Exam Vitals and I&O: Vital Signs Temp 99.2 F 09/25/17 22:07 Pulse 90 09/25/17 22:07 Resp 19 09/25/17 22:07 BP 120/67 09/25/17 22:07 Pulse Ox 100 09/25/17 22:07 Intake & Output 09/25/17 09/25/17 09/26/17 06:59 18:59 06:59 Intake Total 120 1500 240 Balance 120 1500 240 Weight (lbs) 77.111 kg Intake: Oral 120 1500 240 Other: # Voids 2 3 3 # Bowel Movements 0 0 Weight Source Bedscale Active Medications: Current Medications Acetaminophen (Tylenol) 650 mg PO Q4HR PRN PRN Reason: Mild Pain / Temp above 100 Stop: 11/04/17 21:49 Al Hydrox/Mg Hydrox/Simethicone (Maalox) 30 ml PO Q4HR PRN PRN Reason: GI DISTRESS Stop: 11/04/17 21:49 Aspirin (Aspirin Chewable) 81 mg PO DAILY [facility] Stop: 11/05/17 08:59 Last Admin: 09/25/17 08:27 Dose: 81 mg Bupropion HCl (Wellbutrin Xl) 300 mg PO DAILY [facility]; Protocol Stop: 11/05/17 08:59 Last Admin: 09/25/17 08:26 Dose: 300 mg Donepezil HCl (Aricept) 20 mg PO DAILY [facility] Stop: 11/05/17 08:59 Last Admin: 09/25/17 08:26 Dose: 20 mg Folic Acid (Folate) 1 mg PO DAILY [facility] Stop: 11/05/17 08:59 Last Admin: 09/25/17 08:26 Dose: 1 mg Lorazepam (Ativan) 1 mg IM Q6H PRN; Protocol PRN Reason: Agitation Stop: 11/16/17 07:59 Last Admin: 09/24/17 00:24 Dose: 1 mg Magnesium Hydroxide (Milk Of Magnesia) 30 ml PO HS PRN PRN Reason: Constipation Memantine (Namenda) 10 mg PO BID [facility] Stop: 11/05/17 08:59 Last Admin: 09/25/17 16:45 Dose: 10 mg Multivitamins/Vitamin C (Theragran) 1 tab PO DAILY [facility] Stop: 11/05/17 08:59 Last Admin: 09/25/17 08:26 Dose: 1 tab Quetiapine Fumarate (Seroquel) 100 mg PO BID [facility]; Protocol Stop: 11/24/17 16:59 Last Admin: 09/25/17 16:45 Dose: 100 mg Valproate Sodium (Depakene) 250 mg PO TID [facility]; Protocol Stop: 11/24/17 13:59 Last Admin: 09/25/17 20:42 Dose: 250 mg Venlafaxine HCl (Effexor Xr) 300 mg PO DAILY [facility]; Protocol Stop: 11/05/17 08:59 Last Admin: 09/25/17 08:26 Dose: 300 mg General: Alert, No acute distress HEENT: Atraumatic, PERRLA, EOMI Neck: Supple, JVD Cardiovascular: Regular rate, Normal S1, Normal S2 Lungs: Clear to auscultation Abdomen: Bowel sounds, Soft Extremities: no Clubbing, no Cyanosis, no Edema Neurological: Normal gait, Normal speech Skin: no Rash Assessment/Plan - Assessment Assessment: Acute Psychosis with aggressive attitude Bipolar Disorder HTN Major Depression Generalized Weakness - Plan Plan: continue current treatment Nutritional Asmnt/Malnutr-PDOC - Dietary Evaluation Malnutrition Findings (Please click <Entered> for more info): Nutritional Asmnt/Malnutrition Start: 09/10/17 14: 01 Text: Status: Complete Freq: Protocol: Document 09/10/17 14:01 KATLYN (Rec: 09/10/17 14:06 KATLYN [email or web address]) Nutritional Asmnt/Malnutrition Patient General Information Nutritional Screening Low Risk Diagnosis psychosis aggressive behavior Pertinent Medical Hx/Surgical Hx HTN, hyperlipidemia, dementia, psychosis, bipolar disorder, generalizaed muscle weakness Subjective Information Pt seen sitting in castro-chair at time of visit, confused, not able to communicate. Per EMR< PO intake 75-100% of meals. Current Diet Order/ Nutrition Support regular Pertinent Labs 09/04 nutrition labs WNL Nutritional Hx/Data Height 1.7 m Height (Calculated Centimeters) 170.2 Current Weight (lbs) 77.111 kg Weight (Calculated Kilograms) 77.1 Weight (Calculated Grams) 48479.7 [place] Body Weight 135 Body Mass Index (BMI) 26.6 Weight Status Overweight GI Symptoms GI Symptoms None Last BM 09/09 Difficult in: None Skin Integrity/Comment: dryness Current %PO Good (75-100%) Estimated Nutritional Goals BEE in Kcals: Using Current wt Calories/Kcals/Kg 23-27 Kcals Calculated 3123-5288 Protein: Using Current wt Protein g/k.8-1 Protein Calculated 62-77 Fluid: ml 1771-2079ml (1ml/kcal) Nutritional Problem No current Nutrition Prob Problem N/A Malnutrition Alert Is there a minimum of two criteria No selected? Query Text:Check all the applicable criteria. A minimum of two criteria are recommended for diagnosis of either severe or non-severe malnutrition. Malnutrition Related to Morbid Obesity Malnutrition related to morbid obesity No Intervention/Recommendation Comments 1. Continue with current diet as ordered. 2. Monitor PO intake, wt, labs and skin integrity 3. F/U as low risk in 7 days, 09/17 Expected Outcomes/Goals Expected Outcomes/Goals 1. PO intake to meet at least 75% of nutritional needs. 2. Wt stability, skin to remain intact, labs to approach WNL.
[2017-09-26] MEDS: Multivitamin Tab PO SCH (09:45)
[2017-09-26] MEDS: Aspirin 81mg Chewable Tab PO SCH (09:46)
[2017-09-26] MEDS: buPROPion XL 150 mg T 24 H PO SCH (09:46)
--- NOTE | 2017-09-27 05:22 | General Progress Note ---
Subjective - Review of Systems Service Date: 09/27/17 Subjective: Awake, alert but confused VS T97.6 P 81 BP 135/79 R 20 Objective - Results Result Diagrams: 09/05/17 17:13 09/05/17 17:13 Recent Labs: Laboratory Last Values WBC 7.7 Th/cmm (4.8-10.8) 09/05/17 17:13 RBC 4.26 Mil/cmm (3.80-5.10) 09/05/17 17:13 Hgb 13.9 gm/dL (12-16) 09/05/17 17:13 Hct 40.9 % (41.0-60) L 09/05/17 17:13 MCV 96.1 fl (81-100) 09/05/17 17:13 MCH 32.5 pg (27.0-31.0) H 09/05/17 17:13 MCHC Differential 33.9 pg (28.0-36.0) 09/05/17 17:13 RDW 14.5 % (11.5-20.0) 09/05/17 17:13 Plt Count 327 Th/cmm (150-400) 09/05/17 17:13 MPV 7.8 fl 09/05/17 17:13 Neutrophils % 74.8 % (40.0-80.0) 09/05/17 17:13 Lymphocytes % 18.2 % (20.0-50.0) L 09/05/17 17:13 Monocytes % 5.0 % (2.0-10.0) 09/05/17 17:13 Eosinophils % 1.8 % (0.0-5.0) 09/05/17 17:13 Basophils % 0.2 % (0.0-2.0) 09/05/17 17:13 Sodium 136 mEq/L (136-145) 09/05/17 17:13 Potassium 4.1 mEq/L (3.5-5.1) 09/05/17 17:13 Chloride 103 mEq/L (98-107) 09/05/17 17:13 Carbon Dioxide 25.8 mEq/L (21.0-31.0) 09/05/17 17:13 Anion Gap 11.3 (7.0-16.0) 09/05/17 17:13 BUN 19 mg/dL (7-25) 09/05/17 17:13 Creatinine 0.7 mg/dL (0.6-1.2) 09/05/17 17:13 Est GFR ( Amer) > 60.0 ml/min (>90) 09/05/17 17:13 Est GFR (Non-Af Amer) > 60.0 ml/min 09/05/17 17:13 BUN/Creatinine Ratio 27.1 09/05/17 17:13 Glucose 85 mg/dL (70-105) 09/05/17 17:13 Calcium 9.4 mg/dL (8.6-10.3) 09/05/17 17:13 Total Bilirubin 0.2 mg/dL (0.3-1.0) L 09/05/17 17:13 AST 18 U/L (13-39) 09/05/17 17:13 ALT 29 U/L (7-52) 09/05/17 17:13 Alkaline Phosphatase 91 U/L (34-104) 09/05/17 17:13 Total Protein 7.0 gm/dL (6.0-8.3) 09/05/17 17:13 Albumin 3.8 gm/dL (3.7-5.3) 09/05/17 17:13 Globulin 3.2 gm/dL 09/05/17 17:13 Albumin/Globulin Ratio 1.2 (1.0-1.8) 09/05/17 17:13 Urine Source CLEAN C 09/05/17 17:50 Urine Color YELLOW 09/05/17 17:50 Urine Clarity CLEAR (CLEAR) 09/05/17 17:50 Urine pH 6.0 (4.6 - 8.0) 09/05/17 17:50 Ur Specific [place] 1.020 (1.005-1.030) 09/05/17 17:50 Urine Protein NEGATIVE mg/dL (NEGATIVE) 09/05/17 17:50 Urine Glucose (UA) NEGATIVE mg/dL (NEGATIVE) 09/05/17 17:50 Urine Ketones NEGATIVE mg/dL (NEGATIVE) 09/05/17 17:50 Urine Blood NEGATIVE (NEGATIVE) 09/05/17 17:50 Urine Nitrate NEGATIVE (NEGATIVE) 09/05/17 17:50 Urine Bilirubin NEGATIVE (NEGATIVE) 09/05/17 17:50 Urine Urobilinogen 0.2 E.U./dL (0.2 - 1.0) 09/05/17 17:50 Ur Leukocyte Esterase NEGATIVE (NEGATIVE) 09/05/17 17:50 Urine RBC NONE SEEN /hpf (0-5) 09/05/17 17:50 Urine WBC NONE SEEN /hpf (0-5) 09/05/17 17:50 Ur Epithelial Cells NONE SEEN /lpf (FEW) 09/05/17 17:50 Urine Bacteria NONE SEEN /hpf (NONE SEEN) 09/05/17 17:50 Valproic Acid 45.3 ug/mL (50.0-100.0) L 09/20/17 12:45 - Physical Exam Vitals and I&O: Vital Signs Temp 97.6 F 09/26/17 20:17 Pulse 81 09/26/17 20:17 Resp 20 09/26/17 20:17 BP 135/79 09/26/17 20:17 Pulse Ox 96 09/26/17 20:17 Intake & Output 09/26/17 09/26/17 09/27/17 06:59 18:59 06:59 Intake Total 240 1200 240 Output Total 1 Balance 240 1200 239 Weight (lbs) 77.111 kg Intake: Oral 240 1200 240 Output: Urine/Stool Mix 1 Other: # Voids 3 1 # Bowel Movements 0 1 Weight Source Bedscale Active Medications: Current Medications Acetaminophen (Tylenol) 650 mg PO Q4HR PRN PRN Reason: Mild Pain / Temp above 100 Stop: 11/04/17 21:49 Al Hydrox/Mg Hydrox/Simethicone (Maalox) 30 ml PO Q4HR PRN PRN Reason: GI DISTRESS Stop: 11/04/17 21:49 Aspirin (Aspirin Chewable) 81 mg PO DAILY [facility] Stop: 11/05/17 08:59 Last Admin: 09/26/17 09:46 Dose: 81 mg Bupropion HCl (Wellbutrin Xl) 300 mg PO DAILY [facility]; Protocol Stop: 11/05/17 08:59 Last Admin: 09/26/17 09:46 Dose: 300 mg Donepezil HCl (Aricept) 20 mg PO DAILY [facility] Stop: 11/05/17 08:59 Last Admin: 09/26/17 09:44 Dose: 20 mg Folic Acid (Folate) 1 mg PO DAILY [facility] Stop: 11/05/17 08:59 Last Admin: 09/26/17 09:46 Dose: 1 mg Lorazepam (Ativan) 1 mg IM Q6H PRN; Protocol PRN Reason: Agitation Stop: 11/16/17 07:59 Last Admin: 09/24/17 00:24 Dose: 1 mg Magnesium Hydroxide (Milk Of Magnesia) 30 ml PO HS PRN PRN Reason: Constipation Memantine (Namenda) 10 mg PO BID [facility] Stop: 11/05/17 08:59 Last Admin: 09/26/17 16:48 Dose: 10 mg Multivitamins/Vitamin C (Theragran) 1 tab PO DAILY [facility] Stop: 11/05/17 08:59 Last Admin: 09/26/17 09:45 Dose: 1 tab Quetiapine Fumarate (Seroquel) 100 mg PO BID [facility]; Protocol Stop: 11/24/17 16:59 Last Admin: 09/26/17 16:48 Dose: 100 mg Valproate Sodium (Depakene) 250 mg PO TID [facility]; Protocol Stop: 11/24/17 13:59 Last Admin: 09/26/17 21:43 Dose: 250 mg Venlafaxine HCl (Effexor Xr) 300 mg PO DAILY [facility]; Protocol Stop: 11/05/17 08:59 Last Admin: 09/26/17 09:45 Dose: 300 mg General: Alert, No acute distress HEENT: Atraumatic, PERRLA, EOMI Neck: Supple, JVD Cardiovascular: Regular rate, Normal S1, Normal S2 Lungs: Clear to auscultation Abdomen: Bowel sounds, Soft Extremities: no Clubbing, no Cyanosis, no Edema Neurological: Normal gait, Normal speech Skin: no Rash Assessment/Plan - Assessment Assessment: Acute Psychosis with aggressive attitude Bipolar Disorder HTN Major Depression Generalized Weakness - Plan Plan: continue current treatment Nutritional Asmnt/Malnutr-PDOC - Dietary Evaluation Malnutrition Findings (Please click <Entered> for more info): Nutritional Asmnt/Malnutrition Start: 09/10/17 14: 01 Text: Status: Complete Freq: Protocol: Document 09/10/17 14:01 CHINGG (Rec: 09/10/17 14:06 KATLYN [email or web address]) Nutritional Asmnt/Malnutrition Patient General Information Nutritional Screening Low Risk Diagnosis psychosis aggressive behavior Pertinent Medical Hx/Surgical Hx HTN, hyperlipidemia, dementia, psychosis, bipolar disorder, generalizaed muscle weakness Subjective Information Pt seen sitting in castro-chair at time of visit, confused, not able to communicate. Per EMR< PO intake 75-100% of meals. Current Diet Order/ Nutrition Support regular Pertinent Labs 09/04 nutrition labs WNL Nutritional Hx/Data Height 1.7 m Height (Calculated Centimeters) 170.2 Current Weight (lbs) 77.111 kg Weight (Calculated Kilograms) 77.1 Weight (Calculated Grams) 95981.7 [place] Body Weight 135 Body Mass Index (BMI) 26.6 Weight Status Overweight GI Symptoms GI Symptoms None Last BM 09/09 Difficult in: None Skin Integrity/Comment: dryness Current %PO Good (75-100%) Estimated Nutritional Goals BEE in Kcals: Using Current wt Calories/Kcals/Kg 23-27 Kcals Calculated 7559-2575 Protein: Using Current wt Protein g/k.8-1 Protein Calculated 62-77 Fluid: ml 1771-2079ml (1ml/kcal) Nutritional Problem No current Nutrition Prob Problem N/A Malnutrition Alert Is there a minimum of two criteria No selected? Query Text:Check all the applicable criteria. A minimum of two criteria are recommended for diagnosis of either severe or non-severe malnutrition. Malnutrition Related to Morbid Obesity Malnutrition related to morbid obesity No Intervention/Recommendation Comments 1. Continue with current diet as ordered. 2. Monitor PO intake, wt, labs and skin integrity 3. F/U as low risk in 7 days, 09/17 Expected Outcomes/Goals Expected Outcomes/Goals 1. PO intake to meet at least 75% of nutritional needs. 2. Wt stability, skin to remain intact, labs to approach WNL.
[2017-09-27] MEDS: Multivitamin Tab PO SCH (08:32)
[2017-09-27] MEDS: buPROPion XL 150 mg T 24 H PO SCH (08:32)
[2017-09-27] MEDS: Aspirin 81mg Chewable Tab PO SCH (08:33)
--- NOTE | 2017-09-27 14:51 | Progress Notes ---
DATE: 09/26/[address] Anderson covering for Dr. Castellanos. SUBJECTIVE: The patient was seen and evaluated. The patient's chart reviewed. IDENTIFYING DATA: A 62-year-old female with a history of bipolar, was transferred here from [facility] for increased aggressive behavior. CURRENT MEDICATIONS: Regimen includes aspirin, Wellbutrin 300 mg q. daily, donepezil 20 mg q. daily, folic acid, lorazepam, Namenda 10 mg p.o. b.i.d., Seroquel 100 mg b.i.d., Depakote 250 mg t.i.d. and Effexor 300 mg. Overnight nursing staff reported the the patient presented mostly disengaged, malodorous and needing a lot of prompting to her simple ADLs which even include just showering, which she had just taken one for the first time since being hospitalized and presented very aggressive with other peers and staff. Today on [id number] evaluation, the patient mostly stares intensely during the interview and does not give much more information beyond that. MENTAL STATUS EXAMINATION: Disengaged, staring intensely with intense stares, do not give much more information beyond that. She continues to be unpredictable. ASSESSMENT AND PLAN: History of dementia, aggressive, malodorous. We will continue with primary psychiatrist treatment plan and goals with the recent adjustments which include Wellbutrin, Aricept, Namenda, Seroquel, which were recently increased in the last 24 hours, Depakote, Effexor and we will continue at the of the primary psychiatrist to continue monitoring medications for any side effects as she does not endorse any side effects to medication today and we will continue monitoring and evaluating. JOB# [id number]
--- NOTE | 2017-09-27 20:51 | Progress Notes ---
DATE: 09/27/2017 SUBJECTIVE: The patient was seen and evaluated. The patient's chart reviewed. Nursing staff reported the patient continues to be at times confused and needed some redirection. Today on [id number] evaluation, the patient easily suspicious and in the interview, minimally interactive with the interview and at times, selectively mute. MENTAL STATUS EXAMINATION: Selectively mute, disengaged. ASSESSMENT AND PLAN: The patient is tolerating the recent increase of the Seroquel without complication. To continue to target the patient's still residual psychotic and disorganized state. We will continue with primary psychiatrist's treatment plan and goals. JOB# [id number]
--- NOTE | 2017-09-28 07:32 | General Progress Note ---
Subjective - Review of Systems Service Date: 09/28/17 Subjective: Awake, alert but confused VS T97.2 P 65 BP 126/73 R 20 Objective - Results Result Diagrams: 09/05/17 17:13 09/05/17 17:13 Recent Labs: Laboratory Last Values WBC 7.7 Th/cmm (4.8-10.8) 09/05/17 17:13 RBC 4.26 Mil/cmm (3.80-5.10) 09/05/17 17:13 Hgb 13.9 gm/dL (12-16) 09/05/17 17:13 Hct 40.9 % (41.0-60) L 09/05/17 17:13 MCV 96.1 fl (81-100) 09/05/17 17:13 MCH 32.5 pg (27.0-31.0) H 09/05/17 17:13 MCHC Differential 33.9 pg (28.0-36.0) 09/05/17 17:13 RDW 14.5 % (11.5-20.0) 09/05/17 17:13 Plt Count 327 Th/cmm (150-400) 09/05/17 17:13 MPV 7.8 fl 09/05/17 17:13 Neutrophils % 74.8 % (40.0-80.0) 09/05/17 17:13 Lymphocytes % 18.2 % (20.0-50.0) L 09/05/17 17:13 Monocytes % 5.0 % (2.0-10.0) 09/05/17 17:13 Eosinophils % 1.8 % (0.0-5.0) 09/05/17 17:13 Basophils % 0.2 % (0.0-2.0) 09/05/17 17:13 Sodium 136 mEq/L (136-145) 09/05/17 17:13 Potassium 4.1 mEq/L (3.5-5.1) 09/05/17 17:13 Chloride 103 mEq/L (98-107) 09/05/17 17:13 Carbon Dioxide 25.8 mEq/L (21.0-31.0) 09/05/17 17:13 Anion Gap 11.3 (7.0-16.0) 09/05/17 17:13 BUN 19 mg/dL (7-25) 09/05/17 17:13 Creatinine 0.7 mg/dL (0.6-1.2) 09/05/17 17:13 Est GFR ( Amer) > 60.0 ml/min (>90) 09/05/17 17:13 Est GFR (Non-Af Amer) > 60.0 ml/min 09/05/17 17:13 BUN/Creatinine Ratio 27.1 09/05/17 17:13 Glucose 85 mg/dL (70-105) 09/05/17 17:13 Calcium 9.4 mg/dL (8.6-10.3) 09/05/17 17:13 Total Bilirubin 0.2 mg/dL (0.3-1.0) L 09/05/17 17:13 AST 18 U/L (13-39) 09/05/17 17:13 ALT 29 U/L (7-52) 09/05/17 17:13 Alkaline Phosphatase 91 U/L (34-104) 09/05/17 17:13 Total Protein 7.0 gm/dL (6.0-8.3) 09/05/17 17:13 Albumin 3.8 gm/dL (3.7-5.3) 09/05/17 17:13 Globulin 3.2 gm/dL 09/05/17 17:13 Albumin/Globulin Ratio 1.2 (1.0-1.8) 09/05/17 17:13 Urine Source CLEAN C 09/05/17 17:50 Urine Color YELLOW 09/05/17 17:50 Urine Clarity CLEAR (CLEAR) 09/05/17 17:50 Urine pH 6.0 (4.6 - 8.0) 09/05/17 17:50 Ur Specific [place] 1.020 (1.005-1.030) 09/05/17 17:50 Urine Protein NEGATIVE mg/dL (NEGATIVE) 09/05/17 17:50 Urine Glucose (UA) NEGATIVE mg/dL (NEGATIVE) 09/05/17 17:50 Urine Ketones NEGATIVE mg/dL (NEGATIVE) 09/05/17 17:50 Urine Blood NEGATIVE (NEGATIVE) 09/05/17 17:50 Urine Nitrate NEGATIVE (NEGATIVE) 09/05/17 17:50 Urine Bilirubin NEGATIVE (NEGATIVE) 09/05/17 17:50 Urine Urobilinogen 0.2 E.U./dL (0.2 - 1.0) 09/05/17 17:50 Ur Leukocyte Esterase NEGATIVE (NEGATIVE) 09/05/17 17:50 Urine RBC NONE SEEN /hpf (0-5) 09/05/17 17:50 Urine WBC NONE SEEN /hpf (0-5) 09/05/17 17:50 Ur Epithelial Cells NONE SEEN /lpf (FEW) 09/05/17 17:50 Urine Bacteria NONE SEEN /hpf (NONE SEEN) 09/05/17 17:50 Valproic Acid 45.3 ug/mL (50.0-100.0) L 09/20/17 12:45 - Physical Exam Vitals and I&O: Vital Signs Temp 97.2 F 09/28/17 06:13 Pulse 65 09/28/17 06:13 Resp 20 09/28/17 06:13 BP 126/73 09/28/17 06:13 Pulse Ox 96 09/28/17 06:13 Intake & Output 09/27/17 09/28/17 09/28/17 18:59 06:59 18:59 Intake Total 800 360 Balance 800 360 Intake: Oral 800 360 Other: # Voids 3 2 # Bowel Movements 0 0 Active Medications: Current Medications Acetaminophen (Tylenol) 650 mg PO Q4HR PRN PRN Reason: Mild Pain / Temp above 100 Stop: 11/04/17 21:49 Al Hydrox/Mg Hydrox/Simethicone (Maalox) 30 ml PO Q4HR PRN PRN Reason: GI DISTRESS Stop: 11/04/17 21:49 Aspirin (Aspirin Chewable) 81 mg PO DAILY [facility] Stop: 11/05/17 08:59 Last Admin: 09/27/17 08:33 Dose: 81 mg Bupropion HCl (Wellbutrin Xl) 300 mg PO DAILY [facility]; Protocol Stop: 11/05/17 08:59 Last Admin: 09/27/17 08:32 Dose: 300 mg Donepezil HCl (Aricept) 20 mg PO DAILY [facility] Stop: 11/05/17 08:59 Last Admin: 09/27/17 08:32 Dose: 20 mg Folic Acid (Folate) 1 mg PO DAILY [facility] Stop: 11/05/17 08:59 Last Admin: 09/27/17 08:33 Dose: 1 mg Lorazepam (Ativan) 1 mg IM Q6H PRN; Protocol PRN Reason: Agitation Stop: 11/16/17 07:59 Last Admin: 09/27/17 21:22 Dose: 1 mg Magnesium Hydroxide (Milk Of Magnesia) 30 ml PO HS PRN PRN Reason: Constipation Memantine (Namenda) 10 mg PO BID [facility] Stop: 11/05/17 08:59 Last Admin: 09/27/17 16:13 Dose: 10 mg Multivitamins/Vitamin C (Theragran) 1 tab PO DAILY [facility] Stop: 11/05/17 08:59 Last Admin: 09/27/17 08:32 Dose: 1 tab Quetiapine Fumarate (Seroquel) 100 mg PO BID [facility]; Protocol Stop: 11/24/17 16:59 Last Admin: 09/27/17 16:12 Dose: 100 mg Valproate Sodium (Depakene) 250 mg PO TID [facility]; Protocol Stop: 11/24/17 13:59 Last Admin: 09/27/17 21:23 Dose: 250 mg Venlafaxine HCl (Effexor Xr) 300 mg PO DAILY [facility]; Protocol Stop: 11/05/17 08:59 Last Admin: 09/27/17 08:32 Dose: 300 mg General: Alert, No acute distress HEENT: Atraumatic, PERRLA, EOMI Neck: Supple, JVD Cardiovascular: Regular rate, Normal S1, Normal S2 Lungs: Clear to auscultation Abdomen: Bowel sounds, Soft Extremities: no Clubbing, no Cyanosis, no Edema Neurological: Normal gait, Normal speech Skin: no Rash Assessment/Plan - Assessment Assessment: Acute Psychosis with aggressive attitude Bipolar Disorder HTN Major Depression Generalized Weakness - Plan Plan: continue current treatment Nutritional Asmnt/Malnutr-PDOC - Dietary Evaluation Malnutrition Findings (Please click <Entered> for more info): Nutritional Asmnt/Malnutrition Start: 09/10/17 14: 01 Text: Status: Complete Freq: Protocol: Document 09/10/17 14:01 CHINGG (Rec: 09/10/17 14:06 KATLYN [email or web address]) Nutritional Asmnt/Malnutrition Patient General Information Nutritional Screening Low Risk Diagnosis psychosis aggressive behavior Pertinent Medical Hx/Surgical Hx HTN, hyperlipidemia, dementia, psychosis, bipolar disorder, generalizaed muscle weakness Subjective Information Pt seen sitting in castro-chair at time of visit, confused, not able to communicate. Per EMR< PO intake 75-100% of meals. Current Diet Order/ Nutrition Support regular Pertinent Labs 09/04 nutrition labs WNL Nutritional Hx/Data Height 1.7 m Height (Calculated Centimeters) 170.2 Current Weight (lbs) 77.111 kg Weight (Calculated Kilograms) 77.1 Weight (Calculated Grams) 34281.7 [place] Body Weight 135 Body Mass Index (BMI) 26.6 Weight Status Overweight GI Symptoms GI Symptoms None Last BM 09/09 Difficult in: None Skin Integrity/Comment: dryness Current %PO Good (75-100%) Estimated Nutritional Goals BEE in Kcals: Using Current wt Calories/Kcals/Kg 23-27 Kcals Calculated 7002-9235 Protein: Using Current wt Protein g/k.8-1 Protein Calculated 62-77 Fluid: ml 1771-2079ml (1ml/kcal) Nutritional Problem No current Nutrition Prob Problem N/A Malnutrition Alert Is there a minimum of two criteria No selected? Query Text:Check all the applicable criteria. A minimum of two criteria are recommended for diagnosis of either severe or non-severe malnutrition. Malnutrition Related to Morbid Obesity Malnutrition related to morbid obesity No Intervention/Recommendation Comments 1. Continue with current diet as ordered. 2. Monitor PO intake, wt, labs and skin integrity 3. F/U as low risk in 7 days, 09/17 Expected Outcomes/Goals Expected Outcomes/Goals 1. PO intake to meet at least 75% of nutritional needs. 2. Wt stability, skin to remain intact, labs to approach WNL.
[2017-09-28] MEDS: Aspirin 81mg Chewable Tab PO SCH (09:44)
[2017-09-28] MEDS: buPROPion XL 150 mg T 24 H PO SCH (09:44)
[2017-09-28] MEDS: Multivitamin Tab PO SCH (09:44)
--- NOTE | 2017-09-28 23:57 | Progress Notes ---
DATE: 09/28/2017 PROGRESS ON THE UNIT: Case was discussed with staff of the patient, reviewed records. The patient continues to be unpredictable and impulsive. She continues to need redirection. She continues to have poor insight. She tolerated the Seroquel with no side effects, no sedation, no nausea, no extrapyramidal symptoms. Still easily agitated, irritable; however, she is a bit calmer today. They report no side effects with the medication, no sedation, no nausea, no extrapyramidal symptoms. PLAN: We will continue to work with the patient in group therapy and milieu therapy, adjust medications as needed. JOB# [id number]
--- NOTE | 2017-09-29 08:04 | General Progress Note ---
Subjective - Review of Systems Service Date: 09/29/17 Subjective: Awake, alert but confused VS T98.0 P 70 BP 119/73 R 20 Objective - Results Result Diagrams: 09/05/17 17:13 09/05/17 17:13 Recent Labs: Laboratory Last Values WBC 7.7 Th/cmm (4.8-10.8) 09/05/17 17:13 RBC 4.26 Mil/cmm (3.80-5.10) 09/05/17 17:13 Hgb 13.9 gm/dL (12-16) 09/05/17 17:13 Hct 40.9 % (41.0-60) L 09/05/17 17:13 MCV 96.1 fl (81-100) 09/05/17 17:13 MCH 32.5 pg (27.0-31.0) H 09/05/17 17:13 MCHC Differential 33.9 pg (28.0-36.0) 09/05/17 17:13 RDW 14.5 % (11.5-20.0) 09/05/17 17:13 Plt Count 327 Th/cmm (150-400) 09/05/17 17:13 MPV 7.8 fl 09/05/17 17:13 Neutrophils % 74.8 % (40.0-80.0) 09/05/17 17:13 Lymphocytes % 18.2 % (20.0-50.0) L 09/05/17 17:13 Monocytes % 5.0 % (2.0-10.0) 09/05/17 17:13 Eosinophils % 1.8 % (0.0-5.0) 09/05/17 17:13 Basophils % 0.2 % (0.0-2.0) 09/05/17 17:13 Sodium 136 mEq/L (136-145) 09/05/17 17:13 Potassium 4.1 mEq/L (3.5-5.1) 09/05/17 17:13 Chloride 103 mEq/L (98-107) 09/05/17 17:13 Carbon Dioxide 25.8 mEq/L (21.0-31.0) 09/05/17 17:13 Anion Gap 11.3 (7.0-16.0) 09/05/17 17:13 BUN 19 mg/dL (7-25) 09/05/17 17:13 Creatinine 0.7 mg/dL (0.6-1.2) 09/05/17 17:13 Est GFR ( Amer) > 60.0 ml/min (>90) 09/05/17 17:13 Est GFR (Non-Af Amer) > 60.0 ml/min 09/05/17 17:13 BUN/Creatinine Ratio 27.1 09/05/17 17:13 Glucose 85 mg/dL (70-105) 09/05/17 17:13 Calcium 9.4 mg/dL (8.6-10.3) 09/05/17 17:13 Total Bilirubin 0.2 mg/dL (0.3-1.0) L 09/05/17 17:13 AST 18 U/L (13-39) 09/05/17 17:13 ALT 29 U/L (7-52) 09/05/17 17:13 Alkaline Phosphatase 91 U/L (34-104) 09/05/17 17:13 Total Protein 7.0 gm/dL (6.0-8.3) 09/05/17 17:13 Albumin 3.8 gm/dL (3.7-5.3) 09/05/17 17:13 Globulin 3.2 gm/dL 09/05/17 17:13 Albumin/Globulin Ratio 1.2 (1.0-1.8) 09/05/17 17:13 Urine Source CLEAN C 09/05/17 17:50 Urine Color YELLOW 09/05/17 17:50 Urine Clarity CLEAR (CLEAR) 09/05/17 17:50 Urine pH 6.0 (4.6 - 8.0) 09/05/17 17:50 Ur Specific [place] 1.020 (1.005-1.030) 09/05/17 17:50 Urine Protein NEGATIVE mg/dL (NEGATIVE) 09/05/17 17:50 Urine Glucose (UA) NEGATIVE mg/dL (NEGATIVE) 09/05/17 17:50 Urine Ketones NEGATIVE mg/dL (NEGATIVE) 09/05/17 17:50 Urine Blood NEGATIVE (NEGATIVE) 09/05/17 17:50 Urine Nitrate NEGATIVE (NEGATIVE) 09/05/17 17:50 Urine Bilirubin NEGATIVE (NEGATIVE) 09/05/17 17:50 Urine Urobilinogen 0.2 E.U./dL (0.2 - 1.0) 09/05/17 17:50 Ur Leukocyte Esterase NEGATIVE (NEGATIVE) 09/05/17 17:50 Urine RBC NONE SEEN /hpf (0-5) 09/05/17 17:50 Urine WBC NONE SEEN /hpf (0-5) 09/05/17 17:50 Ur Epithelial Cells NONE SEEN /lpf (FEW) 09/05/17 17:50 Urine Bacteria NONE SEEN /hpf (NONE SEEN) 09/05/17 17:50 Valproic Acid 45.3 ug/mL (50.0-100.0) L 09/20/17 12:45 - Physical Exam Vitals and I&O: Vital Signs Temp 98 F 09/29/17 06:19 Pulse 70 09/29/17 06:19 Resp 20 09/29/17 06:19 BP 119/73 09/29/17 06:19 Pulse Ox 98 09/29/17 06:19 Intake & Output 09/28/17 09/29/17 09/29/17 18:59 06:59 18:59 Intake Total 240 Balance 240 Weight (lbs) 77.111 kg Intake: Oral 240 Other: # Voids 3 3 # Bowel Movements 1 0 Stool Characteristics Soft Formed Brown Weight Source Bedscale Active Medications: Current Medications Acetaminophen (Tylenol) 650 mg PO Q4HR PRN PRN Reason: Mild Pain / Temp above 100 Stop: 11/04/17 21:49 Al Hydrox/Mg Hydrox/Simethicone (Maalox) 30 ml PO Q4HR PRN PRN Reason: GI DISTRESS Stop: 11/04/17 21:49 Aspirin (Aspirin Chewable) 81 mg PO DAILY [facility] Stop: 11/05/17 08:59 Last Admin: 09/28/17 09:44 Dose: 81 mg Bupropion HCl (Wellbutrin Xl) 300 mg PO DAILY [facility]; Protocol Stop: 11/05/17 08:59 Last Admin: 09/28/17 09:44 Dose: 300 mg Donepezil HCl (Aricept) 20 mg PO DAILY [facility] Stop: 11/05/17 08:59 Last Admin: 09/28/17 09:44 Dose: 20 mg Folic Acid (Folate) 1 mg PO DAILY [facility] Stop: 11/05/17 08:59 Last Admin: 09/28/17 09:45 Dose: 1 mg Lorazepam (Ativan) 1 mg IM Q6H PRN; Protocol PRN Reason: Agitation Stop: 11/16/17 07:59 Last Admin: 09/27/17 21:22 Dose: 1 mg Magnesium Hydroxide (Milk Of Magnesia) 30 ml PO HS PRN PRN Reason: Constipation Memantine (Namenda) 10 mg PO BID [facility] Stop: 11/05/17 08:59 Last Admin: 09/28/17 17:41 Dose: 10 mg Multivitamins/Vitamin C (Theragran) 1 tab PO DAILY [facility] Stop: 11/05/17 08:59 Last Admin: 09/28/17 09:44 Dose: 1 tab Quetiapine Fumarate (Seroquel) 100 mg PO BID [facility]; Protocol Stop: 11/24/17 16:59 Last Admin: 09/28/17 17:40 Dose: 100 mg Valproate Sodium (Depakene) 250 mg PO TID [facility]; Protocol Stop: 11/24/17 13:59 Last Admin: 09/28/17 21:07 Dose: 250 mg Venlafaxine HCl (Effexor Xr) 300 mg PO DAILY [facility]; Protocol Stop: 11/05/17 08:59 Last Admin: 09/28/17 09:44 Dose: 300 mg General: Alert, No acute distress HEENT: Atraumatic, PERRLA, EOMI Neck: Supple, JVD Cardiovascular: Regular rate, Normal S1, Normal S2 Lungs: Clear to auscultation Abdomen: Bowel sounds, Soft Extremities: no Clubbing, no Cyanosis, no Edema Neurological: Normal gait, Normal speech Skin: no Rash Assessment/Plan - Assessment Assessment: Acute Psychosis with aggressive attitude Bipolar Disorder HTN Major Depression Generalized Weakness - Plan Plan: continue current treatment Nutritional Asmnt/Malnutr-PDOC - Dietary Evaluation Malnutrition Findings (Please click <Entered> for more info): Nutritional Asmnt/Malnutrition Start: 09/10/17 14: 01 Text: Status: Complete Freq: Protocol: Document 09/10/17 14:01 KATLYN (Rec: 09/10/17 14:06 KATLYN [email or web address]) Nutritional Asmnt/Malnutrition Patient General Information Nutritional Screening Low Risk Diagnosis psychosis aggressive behavior Pertinent Medical Hx/Surgical Hx HTN, hyperlipidemia, dementia, psychosis, bipolar disorder, generalizaed muscle weakness Subjective Information Pt seen sitting in castro-chair at time of visit, confused, not able to communicate. Per EMR< PO intake 75-100% of meals. Current Diet Order/ Nutrition Support regular Pertinent Labs 09/04 nutrition labs WNL Nutritional Hx/Data Height 1.7 m Height (Calculated Centimeters) 170.2 Current Weight (lbs) 77.111 kg Weight (Calculated Kilograms) 77.1 Weight (Calculated Grams) 12465.7 [place] Body Weight 135 Body Mass Index (BMI) 26.6 Weight Status Overweight GI Symptoms GI Symptoms None Last BM 09/09 Difficult in: None Skin Integrity/Comment: dryness Current %PO Good (75-100%) Estimated Nutritional Goals BEE in Kcals: Using Current wt Calories/Kcals/Kg 23-27 Kcals Calculated 9011-4889 Protein: Using Current wt Protein g/k.8-1 Protein Calculated 62-77 Fluid: ml 1771-2079ml (1ml/kcal) Nutritional Problem No current Nutrition Prob Problem N/A Malnutrition Alert Is there a minimum of two criteria No selected? Query Text:Check all the applicable criteria. A minimum of two criteria are recommended for diagnosis of either severe or non-severe malnutrition. Malnutrition Related to Morbid Obesity Malnutrition related to morbid obesity No Intervention/Recommendation Comments 1. Continue with current diet as ordered. 2. Monitor PO intake, wt, labs and skin integrity 3. F/U as low risk in 7 days, 09/17 Expected Outcomes/Goals Expected Outcomes/Goals 1. PO intake to meet at least 75% of nutritional needs. 2. Wt stability, skin to remain intact, labs to approach WNL.
[2017-09-29] MEDS: Multivitamin Tab PO SCH (09:27)
[2017-09-29] MEDS: Aspirin 81mg Chewable Tab PO SCH (09:27)
[2017-09-29] MEDS: buPROPion XL 150 mg T 24 H PO SCH (09:27)
--- NOTE | 2017-09-29 23:15 | Progress Notes ---
DATE: 09/29/2017 SUBJECTIVE: Case was discussed with staff of the patient and reviewed records. The patient continues to be unpredictable, impulsive, needing redirection. Continues to have poor insight. Continues to be easily agitated, irritable. She is sleeping a little better and improved appetite. No side effects with the medication, no sedation, no nausea, no extrapyramidal symptoms. She tolerated the increase in Seroquel few days ago to 100 mg twice a day with no side effects, no sedation or nausea, and no extrapyramidal symptoms. Depakote level 45.3 and I did increase the dose and we will be ordering another level. No side effects from medication, no sedation, no nausea, no extrapyramidal symptoms. We will continue outpatient group therapy, milieu therapy, adjust medication as needed. JOB# [id number]
--- NOTE | 2017-09-30 08:02 | General Progress Note ---
Subjective - Review of Systems Service Date: 09/30/17 Subjective: Awake, alert but confused VS T97.8 P 72 BP 135/80 R 20 Objective - Results Result Diagrams: 09/05/17 17:13 09/05/17 17:13 Recent Labs: Laboratory Last Values WBC 7.7 Th/cmm (4.8-10.8) 09/05/17 17:13 RBC 4.26 Mil/cmm (3.80-5.10) 09/05/17 17:13 Hgb 13.9 gm/dL (12-16) 09/05/17 17:13 Hct 40.9 % (41.0-60) L 09/05/17 17:13 MCV 96.1 fl (81-100) 09/05/17 17:13 MCH 32.5 pg (27.0-31.0) H 09/05/17 17:13 MCHC Differential 33.9 pg (28.0-36.0) 09/05/17 17:13 RDW 14.5 % (11.5-20.0) 09/05/17 17:13 Plt Count 327 Th/cmm (150-400) 09/05/17 17:13 MPV 7.8 fl 09/05/17 17:13 Neutrophils % 74.8 % (40.0-80.0) 09/05/17 17:13 Lymphocytes % 18.2 % (20.0-50.0) L 09/05/17 17:13 Monocytes % 5.0 % (2.0-10.0) 09/05/17 17:13 Eosinophils % 1.8 % (0.0-5.0) 09/05/17 17:13 Basophils % 0.2 % (0.0-2.0) 09/05/17 17:13 Sodium 136 mEq/L (136-145) 09/05/17 17:13 Potassium 4.1 mEq/L (3.5-5.1) 09/05/17 17:13 Chloride 103 mEq/L (98-107) 09/05/17 17:13 Carbon Dioxide 25.8 mEq/L (21.0-31.0) 09/05/17 17:13 Anion Gap 11.3 (7.0-16.0) 09/05/17 17:13 BUN 19 mg/dL (7-25) 09/05/17 17:13 Creatinine 0.7 mg/dL (0.6-1.2) 09/05/17 17:13 Est GFR ( Amer) > 60.0 ml/min (>90) 09/05/17 17:13 Est GFR (Non-Af Amer) > 60.0 ml/min 09/05/17 17:13 BUN/Creatinine Ratio 27.1 09/05/17 17:13 Glucose 85 mg/dL (70-105) 09/05/17 17:13 Calcium 9.4 mg/dL (8.6-10.3) 09/05/17 17:13 Total Bilirubin 0.2 mg/dL (0.3-1.0) L 09/05/17 17:13 AST 18 U/L (13-39) 09/05/17 17:13 ALT 29 U/L (7-52) 09/05/17 17:13 Alkaline Phosphatase 91 U/L (34-104) 09/05/17 17:13 Total Protein 7.0 gm/dL (6.0-8.3) 09/05/17 17:13 Albumin 3.8 gm/dL (3.7-5.3) 09/05/17 17:13 Globulin 3.2 gm/dL 09/05/17 17:13 Albumin/Globulin Ratio 1.2 (1.0-1.8) 09/05/17 17:13 Urine Source CLEAN C 09/05/17 17:50 Urine Color YELLOW 09/05/17 17:50 Urine Clarity CLEAR (CLEAR) 09/05/17 17:50 Urine pH 6.0 (4.6 - 8.0) 09/05/17 17:50 Ur Specific [place] 1.020 (1.005-1.030) 09/05/17 17:50 Urine Protein NEGATIVE mg/dL (NEGATIVE) 09/05/17 17:50 Urine Glucose (UA) NEGATIVE mg/dL (NEGATIVE) 09/05/17 17:50 Urine Ketones NEGATIVE mg/dL (NEGATIVE) 09/05/17 17:50 Urine Blood NEGATIVE (NEGATIVE) 09/05/17 17:50 Urine Nitrate NEGATIVE (NEGATIVE) 09/05/17 17:50 Urine Bilirubin NEGATIVE (NEGATIVE) 09/05/17 17:50 Urine Urobilinogen 0.2 E.U./dL (0.2 - 1.0) 09/05/17 17:50 Ur Leukocyte Esterase NEGATIVE (NEGATIVE) 09/05/17 17:50 Urine RBC NONE SEEN /hpf (0-5) 09/05/17 17:50 Urine WBC NONE SEEN /hpf (0-5) 09/05/17 17:50 Ur Epithelial Cells NONE SEEN /lpf (FEW) 09/05/17 17:50 Urine Bacteria NONE SEEN /hpf (NONE SEEN) 09/05/17 17:50 Valproic Acid 71.0 ug/mL (50.0-100.0) 09/29/17 14:30 - Physical Exam Vitals and I&O: Vital Signs Temp 97.8 F 09/30/17 06:41 Pulse 72 09/30/17 06:41 Resp 20 09/30/17 06:41 BP 135/80 09/30/17 06:41 Pulse Ox 98 09/30/17 06:41 Intake & Output 09/29/17 09/30/17 09/30/17 18:59 06:59 18:59 Intake Total 360 Balance 360 Weight (lbs) 77.111 kg Intake: Oral 360 Other: # Voids 3 2 # Bowel Movements 0 0 Stool Characteristics Soft Formed Brown Weight Source Bedscale Active Medications: Current Medications Acetaminophen (Tylenol) 650 mg PO Q4HR PRN PRN Reason: Mild Pain / Temp above 100 Stop: 11/04/17 21:49 Al Hydrox/Mg Hydrox/Simethicone (Maalox) 30 ml PO Q4HR PRN PRN Reason: GI DISTRESS Stop: 11/04/17 21:49 Aspirin (Aspirin Chewable) 81 mg PO DAILY [facility] Stop: 11/05/17 08:59 Last Admin: 09/29/17 09:27 Dose: 81 mg Bupropion HCl (Wellbutrin Xl) 300 mg PO DAILY [facility]; Protocol Stop: 11/05/17 08:59 Last Admin: 09/29/17 09:27 Dose: 300 mg Donepezil HCl (Aricept) 20 mg PO DAILY [facility] Stop: 11/05/17 08:59 Last Admin: 09/29/17 09:27 Dose: 20 mg Folic Acid (Folate) 1 mg PO DAILY [facility] Stop: 11/05/17 08:59 Last Admin: 09/29/17 09:27 Dose: 1 mg Lorazepam (Ativan) 1 mg IM Q6H PRN; Protocol PRN Reason: Agitation Stop: 11/16/17 07:59 Last Admin: 09/27/17 21:22 Dose: 1 mg Magnesium Hydroxide (Milk Of Magnesia) 30 ml PO HS PRN PRN Reason: Constipation Memantine (Namenda) 10 mg PO BID [facility] Stop: 11/05/17 08:59 Last Admin: 09/29/17 16:19 Dose: 10 mg Multivitamins/Vitamin C (Theragran) 1 tab PO DAILY [facility] Stop: 11/05/17 08:59 Last Admin: 09/29/17 09:27 Dose: 1 tab Quetiapine Fumarate (Seroquel) 100 mg PO BID [facility]; Protocol Stop: 11/24/17 16:59 Last Admin: 09/29/17 16:19 Dose: 100 mg Valproate Sodium (Depakene) 250 mg PO TID [facility]; Protocol Stop: 11/24/17 13:59 Last Admin: 09/29/17 21:15 Dose: 250 mg Venlafaxine HCl (Effexor Xr) 300 mg PO DAILY [facility]; Protocol Stop: 11/05/17 08:59 Last Admin: 09/29/17 09:27 Dose: 300 mg General: Alert, No acute distress HEENT: Atraumatic, PERRLA, EOMI Neck: Supple, JVD Cardiovascular: Regular rate, Normal S1, Normal S2 Lungs: Clear to auscultation Abdomen: Bowel sounds, Soft Extremities: no Clubbing, no Cyanosis, no Edema Neurological: Normal gait, Normal speech Skin: no Rash Assessment/Plan - Assessment Assessment: Acute Psychosis with aggressive attitude Bipolar Disorder HTN Major Depression Generalized Weakness - Plan Plan: continue current treatment Nutritional Asmnt/Malnutr-PDOC - Dietary Evaluation Malnutrition Findings (Please click <Entered> for more info): Nutritional Asmnt/Malnutrition Start: 09/10/17 14: 01 Text: Status: Complete Freq: Protocol: Document 09/10/17 14:01 KATLYN (Rec: 09/10/17 14:06 KATLYN [email or web address]) Nutritional Asmnt/Malnutrition Patient General Information Nutritional Screening Low Risk Diagnosis psychosis aggressive behavior Pertinent Medical Hx/Surgical Hx HTN, hyperlipidemia, dementia, psychosis, bipolar disorder, generalizaed muscle weakness Subjective Information Pt seen sitting in castro-chair at time of visit, confused, not able to communicate. Per EMR< PO intake 75-100% of meals. Current Diet Order/ Nutrition Support regular Pertinent Labs 09/04 nutrition labs WNL Nutritional Hx/Data Height 1.7 m Height (Calculated Centimeters) 170.2 Current Weight (lbs) 77.111 kg Weight (Calculated Kilograms) 77.1 Weight (Calculated Grams) 98772.7 [place] Body Weight 135 Body Mass Index (BMI) 26.6 Weight Status Overweight GI Symptoms GI Symptoms None Last BM 09/09 Difficult in: None Skin Integrity/Comment: dryness Current %PO Good (75-100%) Estimated Nutritional Goals BEE in Kcals: Using Current wt Calories/Kcals/Kg 23-27 Kcals Calculated 3855-1139 Protein: Using Current wt Protein g/k.8-1 Protein Calculated 62-77 Fluid: ml 1771-2079ml (1ml/kcal) Nutritional Problem No current Nutrition Prob Problem N/A Malnutrition Alert Is there a minimum of two criteria No selected? Query Text:Check all the applicable criteria. A minimum of two criteria are recommended for diagnosis of either severe or non-severe malnutrition. Malnutrition Related to Morbid Obesity Malnutrition related to morbid obesity No Intervention/Recommendation Comments 1. Continue with current diet as ordered. 2. Monitor PO intake, wt, labs and skin integrity 3. F/U as low risk in 7 days, 09/17 Expected Outcomes/Goals Expected Outcomes/Goals 1. PO intake to meet at least 75% of nutritional needs. 2. Wt stability, skin to remain intact, labs to approach WNL.
[2017-09-30] MEDS: Aspirin 81mg Chewable Tab PO SCH (08:23)
[2017-09-30] MEDS: buPROPion XL 150 mg T 24 H PO SCH (08:23)
[2017-09-30] MEDS: Multivitamin Tab PO SCH (08:23)
--- NOTE | 2017-09-30 13:24 | Discharge Summary ---
DATE OF DISCHARGE: 09/30/2017 IDENTIFYING INFORMATION: The patient is a 62-year-old female. CHIEF COMPLAINT: Aggressive agitated. HISTORY OF PRESENT ILLNESS: The patient with a history of bipolar disorder, dementia, transferred from [facility] and increasing aggressive behavior, increasing agitation in intermediate. The patient was aggressive with the staff and peer and she was wandering in other patient's room, the patient continues to be agitated, irritable upon admission, the patient was wandering in other patient's room, was unable to follow directions. Today confused, unable to participate in meaningful conversation. This is a well-known case to me with multiple prior admissions with diagnosis of dementia and bipolar disorder. COURSE IN THE HOSPITAL: The patient was started back on her medication. The patient was continued with Aricept 20 mg daily, Namenda 10 mg twice a day. She was on Zyprexa, but that was changed to Seroquel, increased the dose to 100 mg twice a day with agitation. She was started on Depakote 250 twice a day and 2-3 times a day, Effexor 300 mg daily. Depakote dose was increased to 70.1. Also, her behavior improved. The patient also ____ folic acid ____ 100 mg daily. As she improved, she was no longer agitated. She was sleeping well, eating well, no longer posing any management problem. We thought she could be discharge to level of care. FINAL DIAGNOSES: AXIS I: Bipolar disorder, dementia. MEDICAL DIAGNOSES: Deferred to the medical doctor. The patient will go back to [facility], will follow up with the psychiatrist and primary care physician. EXPECTED OUTCOME: Stable if the patient complies. JOB# [id number]
== END 2017-09-30 14:30 | DRG 885 ==
LOC: ER 16:41 → GERO 20:33
PROVIDERS: ADMIT Psychiatry & Neurology Psychiatry; ATTEND Psychiatry & Neurology Psychiatry
DX: F31.9 Bipolar disorder, unspecified (principal); F23 Brief psychotic disorder; I10 Essential (primary) hypertension; F03.90 Unspecified dementia, unspecified severity, without behavioral disturbance, psychotic disturbance, mood disturbance, and anxiety; M62.81 Muscle weakness (generalized); E78.5 Hyperlipidemia, unspecified
CPT/HCPCS: 36415-UA; 71045-TC; 80053-TC; 80164-TC; 81001-TC; 85025-TC; 90899; 93005; G0410; J1200; J1630; J2060; J3230; Z7610

== ENCOUNTER 2017-11-10 12:43 | Inpatient (IN) | payer MEDICARE, MEDICAID ==
[2017-11-10] MEDS ORDERED: cefTRIAXone 1 GM in Sodium Chloride 0.9% 50 ML IV ONE (13:24)
--- NOTE | 2017-11-10 13:33 | ED Physician Chart ---
ED Chief Complaint/HPI - Patient Information Date Seen:: 11/10/17 Time Seen:: 13:00 Chief Complaint:: Leg Redness History of Present Illness:: onset x 2 weeks of LE redness, swelling, and erythema; pt's last tetanus shot: < 5 years; UTD; pt denies trauma, H/As, LOC, ALOC, AMS, S/T, neck pain, cough, C /P, SOB, Abd. Pain, A/N/V/D/C, fever, chills, or urinary s/s Allergies:: Allergies Allergy/AdvReac Type Severity Reaction Status Date / Time No Known Allergies Allergy Verified 09/05/17 17:05 Vitals:: Vital Signs - 8 hr 11/10/17 13:01 Temp 98.9 F HR 75 RR 16 BP 110/67 O2 Sat % 96 Historian:: Patient, EMS Review:: Nurse's Note Reviewed, Old Chart Reviewed, EMS run form Reviewed ED Review of Systems - Review of Systems General/Constitutional: Fever, No chills, No weight loss, No weakness, No diaphoresis, No edema, No loss of appetite Skin: Skin lesions, Rash, No bruising Head: No headache, No light-headedness Eyes: No loss of vision, No pain, No diplopia ENT: No earache, No nasal drainage, No sore throat, No tinnitus Neck: No neck pain, No swelling, No thyromegaly, No stiffness, No mass noted Cardio Vascular: No chest pain, No palpitations, No PND, No orthopnea, No edema Pulmonary: No SOB, No cough, No sputum, No wheezing GI: No nausea, No vomiting, No diarrhea, No pain, No melena, No hematochezia, No constipation, No hematemesis G/U: No dysuria, No frequency, No hematuria, No nacturia Service Establishment Attendant: No vaginal discharge, No abnormal vaginal bleed, No contraction Musculoskeletal: No bone or joint pain, No back pain, No muscle pain Endocrine: No polyuria, No polydipsia Psychiatric: Prior psych history, Depression, Anxiety, No suicidal ideation, No homicidal ideation, No auditory hallucination, No visual hallucination Hematopoietic: No bruising, No lymphadenopathy Allergic/Immuno: No urticaria, No angioedema Neurological: No syncope, No focal symptoms, No weakness, No paresthesia, No headache, No seizure, No dizziness, No confusion, No vertigo ED Past Medical History - Past Medical History Obtainable: Yes Past Medical History: HTN, Dyslipidemia Family History: HTN Social History: Non Smoker, No Alcohol, No Drug Use, Single, Care Facility Surgical History: None Psychiatricy History: Depression, Bipolar Medication: Reviewed Family Medical History - Family Member Mother History Unknown: Yes Ethnicity: Non- Living Status: Still Living Hx Family Cancer: (Unknown) Hx Family Coronary Artery Disease: (Unknown) Hx Family Congestive Heart Failure: (Unknown) Hx Family Hypertension: Yes Hx Family Stroke: (Unknown) Hx Family Diabetes: (Unknown) Hx Family Seizures: (Unknown) Hx Family Dementia: (Unknown) Hx Family AIDS: (Unknown) Hx Family HIV: No Hx Family COPD: (Unknown) Hx Family Hepatitis: (Unknown) Hx Family Psychiatric Problems: (Unknown) Hx Family Tuberculosis: (Unknown) Father History Unknown: Yes ED Physical Exam - Physical Examination General/Constitutional: Awake, Well-developed, well-nourished, Alert, No distress, GCS 15, Non-toxic appearing, Ambulatory Head: Atraumatic Eyes: Lids, conjuctiva normal, PERRL, EOMI Skin: No ecchymosis, Well hydrated, No lymphadenopathy Other Skin comments:: + LE cellulitis and scattered maculopapular lesions; good NV functions ENMT: External ears, nose nl, TM canals nl, Nasal exam nl, Lips, teeth, gums nl , Oropharynx nl, Tonsils nl Neck: Nontender, Full ROM w/o pain, No JVD, No nuchal rigidity, No bruit, No mass, No stridor Respiratory: Nl effort/Exclusion, Clear to Auscultation, No Wheeze/Rhonchi/Rales Cardio Vascular: RRR, No murmur, gallop, rubs, NL S1 S2, Carotid/Femoral/Distal pulses equal bilaterally GI: No tenderness/rebounding/guarding, No organomegaly, No hernia, Normal BS's, Nondistended, No mass/bruits, No McBurney tenderness : No CVA tenderness Extremities: No tenderness or effusion, Full ROM, normal strength in all extremities, No edema, Normal digits & nails Neuro/Psych: Alert/oriented, DTR's symmetric, Normal sensory exam, Normal motor strength, Judgement/insight normal, Mood normal, Normal gait, No focal deficits Misc: Normal back, No paraspinal tenderness ED Labs/Radiology/EKG Results - Lab Results Comments:: Reviewed - EKG Interpretations EKG Time:: 13:28 Rate & Rhythm: 70; NSR Comments:: non-specific st-t changes ED Septic Shock - . Is Septic Shock (SBP<90, OR Lactate>4 mmol\L) present?: No - <6hrs of presentation: Vital Signs: Vital Signs - 8 hr 11/10/17 13:01 Temp 98.9 F HR 75 RR 16 BP 110/67 O2 Sat % 96 ED Reassessment (Disposition) - Reassessment Reassessment Condition:: Improved - Diagnosis Diagnosis:: Rash; Cellulitis; Sepsis; UTI - Aftercare/Follow up Instructions Aftercare/Follow-Up Instructions:: Counseled pt regarding lab results/diagnosis & need follow up, Counseled pt & family regarding lab results/diagnosis & need follow up - Patient Disposition Discharge/Transfer:: Acute Care w/in this hosp Accepting Physician:: Dr. Bowser Time Called:: 1500 Time Responded:: 15:00 Admitted to:: Med/Surg Spoke to:: Dr. Bowser Admitting Medical Physician:: Dr. Bowser Condition at Disposition:: Stable, Improved
[2017-11-10 13:54] LABS: % BASOPHILS 0.2 % (0.0-2.0); % EOSINOPHILS 1.8 % (0.0-5.0); % LYMPHOCYTES 20.5 % (20.0-50.0); % MONOCYTES 7.1 % (2.0-10.0); % NEUTROPHILS 70.4 % (40.0-80.0); EOSINOPHILE ABSOLUTE 0.1 Th/cmm (0.1-0.4); HEMATOCRIT 39.4 % (41.0-60); HEMOGLOBIN 12.9 gm/dL (12-16); LYMPHOCYTE ABSOLUTE 1.3 Th/cmm (1.5-3.0); MEAN CELL VOLUME 98.2 fl (81-100); MEAN CORPUSCULAR HEMOGLOBIN 32.2 pg (27.0-31.0); MEAN CORPUSCULAR HGB CONC 32.8 pg (28.0-36.0); MEAN PLATELET VOLUME 7.9 fl; MONOCYTE ABSOLUTE 0.4 Th/cmm (0.3-1.0); NEUTROPHILE ABSOLUTE 4.5 Th/cmm (1.8-8.0); PLATELET COUNT 344 Th/cmm (150-400); RED BLOOD COUNT 4.02 Mil/cmm (3.80-5.10); RED CELL DISTRIBUTION WIDTH 13.3 % (11.5-20.0); WHITE BLOOD COUNT 6.3 Th/cmm (4.8-10.8)
[2017-11-10 14:04] LABS: ALB/GLOB RATIO 0.9 (1.0-1.8); ALBUMIN 3.4 gm/dL (3.7-5.3); ALKALINE PHOSPHATASE 77 U/L (34-104); ANION GAP 7.9 (7.0-16.0); BILIRUBIN,TOTAL 0.3 mg/dL (0.3-1.0); BUN - UREA NITROGEN 11 mg/dL (7-25); CALCIUM SERUM 8.8 mg/dL (8.6-10.3); CARBON DIOXIDE 29.6 mEq/L (21.0-31.0); CHLORIDE 102 mEq/L (98-107); CREATININE - SERUM 0.8 mg/dL (0.6-1.2); CREATININE KINASE 85 U/L (30-223); GFR AFRICAN-AMERICAN > 60.0 ml/min (>90); GFR NON AFRICAN-AMERICAN > 60.0 ml/min; GLUCOSE 79 mg/dL (70-105); POTASSIUM SERUM 3.5 mEq/L (3.5-5.1); SGOT 12 U/L (13-39); SGPT/ALT 12 U/L (7-52); SODIUM SERUM 136 mEq/L (136-145); TOTAL PROTEIN,SERUM 7.1 gm/dL (6.0-8.3)
[2017-11-10 14:12] LABS: INR 1.03 (0.5-1.4); PROTHROMBIN TIME (TEST) 10.7 SECONDS (9.5-11.5)
[2017-11-10 15:14] LABS: URINE SOURCE MIDSTREAM
[2017-11-10 15:18] LABS: URINE BILIRUBIN NEGATIVE (NEGATIVE); URINE BLOOD TRACE (NEGATIVE); URINE GLUCOSE (UA) NEGATIVE (NEGATIVE); URINE KETONE NEGATIVE (NEGATIVE); URINE LEUKOCYTE ESTERASE SMALL (NEGATIVE); URINE MICROSCOPIC INDICATED? YES; URINE NITRATE NEGATIVE (NEGATIVE); URINE PROTEIN NEGATIVE (NEGATIVE); URINE UROBILINOGEN 0.2 E.U./dL (0.2 - 1.0)
[2017-11-10 15:25] LABS: URINE CLARITY CLEAR (CLEAR); URINE COLOR YELLOW
[2017-11-10 15:33] LABS: URINE BACTERIA 1+ /hpf (NONE SEEN); URINE EPITHELIAL CELLS MODERATE /lpf (FEW)
[2017-11-10] MEDS ORDERED: Magnesium Hydroxide (MOM) 30 mL UDC PO PRN (15:54)
[2017-11-10] MEDS ORDERED: Maalox 30 mL Cup PO PRN (15:54)
[2017-11-10 19:36] VITALS: BP 121/77
[2017-11-11 06:46] LABS: % EOSINOPHILS 1.8 % (0.0-5.0); % LYMPHOCYTES 24.6 % (20.0-50.0); % MONOCYTES 6.7 % (2.0-10.0); % NEUTROPHILS 65.9 % (40.0-80.0); BASOPHILE ABSOLUTE 0.1 Th/cumm (0-0.2); EOSINOPHILE ABSOLUTE 0.1 Th/cmm (0.1-0.4); HEMATOCRIT 35.4 % (41.0-60); HEMOGLOBIN 11.8 gm/dL (12-16); LYMPHOCYTE ABSOLUTE 1.5 Th/cmm (1.5-3.0); MEAN CELL VOLUME 97.1 fl (81-100); MEAN CORPUSCULAR HEMOGLOBIN 32.5 pg (27.0-31.0); MEAN CORPUSCULAR HGB CONC 33.5 pg (28.0-36.0); MONOCYTE ABSOLUTE 0.4 Th/cmm (0.3-1.0); PLATELET COUNT 326 Th/cmm (150-400); RED BLOOD COUNT 3.64 Mil/cmm (3.80-5.10); RED CELL DISTRIBUTION WIDTH 13.4 % (11.5-20.0); WHITE BLOOD COUNT 6.1 Th/cmm (4.8-10.8)
[2017-11-11 07:03] LABS: ALB/GLOB RATIO 0.9 (1.0-1.8); ALBUMIN 3.2 gm/dL (3.7-5.3); ALKALINE PHOSPHATASE 70 U/L (34-104); BILIRUBIN,TOTAL 0.3 mg/dL (0.3-1.0); BUN - UREA NITROGEN 9 mg/dL (7-25); CALCIUM SERUM 8.7 mg/dL (8.6-10.3); CARBON DIOXIDE 29.8 mEq/L (21.0-31.0); CHLORIDE 104 mEq/L (98-107); CREATININE - SERUM 0.8 mg/dL (0.6-1.2); GFR AFRICAN-AMERICAN > 60.0 ml/min (>90); GFR NON AFRICAN-AMERICAN > 60.0 ml/min; GLUCOSE 77 mg/dL (70-105); POTASSIUM SERUM 3.8 mEq/L (3.5-5.1); SGOT 11 U/L (13-39); SGPT/ALT 10 U/L (7-52); SODIUM SERUM 138 mEq/L (136-145); TOTAL PROTEIN,SERUM 6.7 gm/dL (6.0-8.3)
--- NOTE | 2017-11-11 08:43 | History and Physical ---
History of Present Illness - HPI Chief Complaint: bilateral lower extremity swelling and redness HPI: 62 y/o female who presents to [facility] ER from SNF for lower extremity swelling and redness with multipled sores noted by the nursing staff. Patient has a history of HTN, hyperlipidemia, Depression, Bipolar disorder, psychosis, dementia. Vital Signs: Last Vital Signs Temp 98.7 F 11/11/17 04:00 Pulse 88 11/11/17 04:00 Resp 18 11/11/17 04:00 BP 105/59 11/11/17 04:00 Pulse Ox 97 11/11/17 04:00 Past Medical History Cardiovascular: Report: HTN, Hyperlipidemia Pulmonary: Report: No Pertinent Hx FACILITIES CUSTODIAN: Report: Dementia GI: Report: No Pertinent Hx Psych: Report: Anxiety, Bipolar, Depression Musculoskeletal: Report: No Pertinent Hx Rheumatologic: Report: No pertinent Hx Infectious Disease: Report: No Pertinent Hx Renal/: Report: No Pertinent Hx Endocrine: Report: No Pertinent Hx Dermatology: Report: No Pertinent Hx - Past Surgical History Past Surgical History: No pertinent Hx Family Medical History - Family Member Mother History Unknown: Yes Ethnicity: Non- Living Status: Still Living Hx Family Cancer: (Unknown) Hx Family Coronary Artery Disease: (Unknown) Hx Family Congestive Heart Failure: (Unknown) Hx Family Hypertension: Yes Hx Family Stroke: (Unknown) Hx Family Diabetes: (Unknown) Hx Family Seizures: (Unknown) Hx Family Dementia: (Unknown) Hx Family AIDS: (Unknown) Hx Family HIV: No Hx Family COPD: (Unknown) Hx Family Hepatitis: (Unknown) Hx Family Psychiatric Problems: (Unknown) Hx Family Tuberculosis: (Unknown) Father History Unknown: Yes Social History Smoke: No Alcohol: None Drugs: None Lives: [facility] - Medications Home Medications: Home Medication Medication Instructions Recorded Type Acetaminophen [Tylenol] 650 mg PO Q4HR PRN tab 09/30/17 Rx Al Hyd/Mg Hyd/Simethicone [Maalox] 30 ml PO Q4HR PRN udc 09/30/17 Rx Aspirin [Aspirin Chewable] 81 mg PO DAILY ctb 09/30/17 Rx Donepezil Hcl [Aricept] 20 mg PO DAILY tab 09/30/17 Rx Folic Acid [Folate*] 1 mg PO DAILY tab 09/30/17 Rx Magnesium Hydroxide [Milk of 30 ml PO HS PRN udc 09/30/17 Rx Magnesia] Memantine [Namenda] 10 mg PO BID tab 09/30/17 Rx Multivitamin [Theragran] 1 tab PO DAILY tab 09/30/17 Rx QUEtiapine Fumarate [SEROquel] 100 mg PO BID tab 09/30/17 Rx Valproic Acid [Depakene] 250 mg PO TID udc 09/30/17 Rx Venlafaxine HCl ER [Effexor XR] 300 mg PO DAILY cer 09/30/17 Rx buPROPion XL [Wellbutrin Xl*] 300 mg PO DAILY t24 09/30/17 Rx cloNIDine HCl [Catapres] 0.1 mg PO Q8HR PRN tab 09/30/17 Rx Lorazepam [Ativan] 0.5 mg PO Q6H PRN 11/10/17 History - Allergies Allergies/Adverse Reactions: Allergies Allergy/AdvReac Type Severity Reaction Status Date / Time No Known Allergies Allergy Verified 09/05/17 17:05 Review of Systems - Review of Systems Constitutional: Report: No Significant Eyes: Report: No Significant ENT: Report: No Significant Respiratory: Report: No Significant Cardiovascular: Report: No Significant Gastrointestinal: Report: No Significant Genitourinary: Report: No Significant Musculoskeletal: Report: No Significant Skin: Report: Lesions, Other (presence of cellulitis) Neurological: Report: No Significant Physical Exam - Physical Exam HEENT: Report: Ears Nose Throat within normal limits, Pharnyx within normal limits Neck: Report: Within normal limits, Tracheostomy site noted to be clean Cardiovascular Systems: Report: +s1/s2 noted, Regular, Rate and Rhythm Respiratory: Report: Breath Sounds are within normal limits, Clear to Auscultation of lung linares Abdomen: Report: Non-tender to palpation, Tender to palpation Back: Report: Inspection of back is within normal limits. Extremities: Report: Non-tender to palpation. Skin: Report: Other (presence of cellulitis to the lower extremities) Neuro/Psych: Report: Mood affect is within normal limits - Lab Results All Lab Results last 24 hours: Laboratory Results - last 24 hr 11/10/17 11/10/17 11/10/17 13:36 13:36 13:36 WBC 6.3 RBC 4.02 Hgb 12.9 Hct 39.4 L MCV 98.2 MCH 32.2 H MCHC Differential 32.8 RDW 13.3 Plt Count 344 MPV 7.9 Neutrophils % 70.4 Lymphocytes % 20.5 Monocytes % 7.1 Eosinophils % 1.8 Basophils % 0.2 PT 10.7 INR 1.03 PTT (Actin FS) 30.1 Sodium 136 Potassium 3.5 Chloride 102 Carbon Dioxide 29.6 Anion Gap 7.9 BUN 11 Creatinine 0.8 Est GFR ( Amer) > 60.0 Est GFR (Non-Af Amer) > 60.0 BUN/Creatinine Ratio 13.8 Glucose 79 Whole Bld Lactic Acid Calcium 8.8 Total Bilirubin 0.3 AST 12 L ALT 12 Alkaline Phosphatase 77 Creatine Kinase 85 Troponin I Total Protein 7.1 Albumin 3.4 L Globulin 3.7 Albumin/Globulin Ratio 0.9 L Urine Source Urine Color Urine Clarity Urine pH Ur Specific Robinson Urine Protein Urine Glucose (UA) Urine Ketones Urine Blood Urine Nitrate Urine Bilirubin Urine Urobilinogen Ur Leukocyte Esterase Urine RBC Urine WBC Ur Epithelial Cells Urine Bacteria 11/10/17 11/10/17 11/10/17 13:36 13:45 15:00 WBC RBC Hgb Hct MCV MCH MCHC Differential RDW Plt Count MPV Neutrophils % Lymphocytes % Monocytes % Eosinophils % Basophils % PT INR PTT (Actin FS) Sodium Potassium Chloride Carbon Dioxide Anion Gap BUN Creatinine Est GFR ( Amer) Est GFR (Non-Af Amer) BUN/Creatinine Ratio Glucose Whole Bld Lactic Acid Cancelled 0.85 Calcium Total Bilirubin AST ALT Alkaline Phosphatase Creatine Kinase Troponin I < 0.01 L Total Protein Albumin Globulin Albumin/Globulin Ratio Urine Source MIDSTREAM Urine Color YELLOW Urine Clarity CLEAR Urine pH 6.0 Ur Specific Robinson 1.010 Urine Protein NEGATIVE Urine Glucose (UA) NEGATIVE Urine Ketones NEGATIVE Urine Blood TRACE Urine Nitrate NEGATIVE Urine Bilirubin NEGATIVE Urine Urobilinogen 0.2 Ur Leukocyte Esterase SMALL H Urine RBC 2-5 Urine WBC 6-10 H Ur Epithelial Cells MODERATE Urine Bacteria 1+ H 11/11/17 11/11/17 05:50 05:50 WBC 6.1 RBC 3.64 L Hgb 11.8 L Hct 35.4 L MCV 97.1 MCH 32.5 H MCHC Differential 33.5 RDW 13.4 Plt Count 326 MPV 8.0 Neutrophils % 65.9 Lymphocytes % 24.6 Monocytes % 6.7 Eosinophils % 1.8 Basophils % 1.0 PT INR PTT (Actin FS) Sodium 138 Potassium 3.8 Chloride 104 Carbon Dioxide 29.8 Anion Gap 8.0 BUN 9 Creatinine 0.8 Est GFR ( Amer) > 60.0 Est GFR (Non-Af Amer) > 60.0 BUN/Creatinine Ratio 11.3 Glucose 77 Whole Bld Lactic Acid Calcium 8.7 Total Bilirubin 0.3 AST 11 L ALT 10 Alkaline Phosphatase 70 Creatine Kinase Troponin I Total Protein 6.7 Albumin 3.2 L Globulin 3.5 Albumin/Globulin Ratio 0.9 L Urine Source Urine Color Urine Clarity Urine pH Ur Specific Robinson Urine Protein Urine Glucose (UA) Urine Ketones Urine Blood Urine Nitrate Urine Bilirubin Urine Urobilinogen Ur Leukocyte Esterase Urine RBC Urine WBC Ur Epithelial Cells Urine Bacteria - Assessment Assessment: bilateral lower extremity cellulitis HTN hyperlipidemia Depression Bipolar disorder psychosis dementia. - Plan Plan: please see orders
[2017-11-11] MEDS: cefTRIAXone 1 GM in Sodium Chloride 0.9% 50 ML IV SCH (08:45)
[2017-11-11] MEDS: Aspirin 81mg Chewable Tab PO SCH (08:46)
[2017-11-11] MEDS: Multivitamin Tab PO SCH (08:47)
[2017-11-11] MEDS: buPROPion XL 150 mg T 24 H PO SCH (10:31)
--- NOTE | 2017-11-11 10:34 | Diagnostic Imaging Report ---
Bilateral lower extremity Doppler venous ultrasound exam HISTORY: Pain/swelling Sonographic sector images were obtained through the deep venous systems of both legs. Associated Doppler data was obtained. The exam demonstrates patency of the common femoral, superficial femoral, popliteal, and posterior tibial veins bilaterally. Specifically, no thrombus is seen. There are normal compressibility and augmentation responses. IMPRESSION: Negative exam for deep vein thrombophlebitis.
--- NOTE | 2017-11-11 14:34 | Consultation ---
DATE OF CONSULTATION: 11/11/2017 IDENTIFYING INFORMATION: The patient is a 62-year-old female. HISTORY OF PRESENT ILLNESS: The patient was admitted because of bilateral lower extremity swelling, cellulitis, who admits the patient also with a history of dementia, bipolar disorder. The patient is a well-known case ____ when she was at [facility], also ____ [facility]. The patient unable to give information, irritable, more on the irritable side. PAST PSYCHIATRIC HISTORY: Bipolar disorder, dementia. MEDICAL HISTORY: Hypertension, lower extremity cellulitis, hyperlipidemia. ALLERGIES: The patient has no known drug allergy. FAMILY AND SOCIAL HISTORY: The patient has been staying at [facility], no family involvement that I am aware of. MENTAL STATUS EXAMINATION: Appropriately dressed, appropriately groomed in hospital gown. She was alert, unable to participate in meaningful conversation or give any information, unable to state a safe plan for self-care. Her long and short term memory is poor, unable to tell her age, where she is, why she is here. Her insight and judgment is impaired. IMPRESSION: Bipolar disorder and also dementia. MEDICAL DIAGNOSES: As per Dr. Kent. I would recommend to continue her medications if she act agitated, may transferred to [facility]. Thank you very much for allowing me to participate in the care of this most interesting lady. JOB# [id number]
--- NOTE | 2017-11-11 14:48 | Consultation ---
Consult Note - Consult Note Service Date: 11/11/17 Referring Physician: Brennon Kent Consult Note: PHYSICIAN Consultation Note: Date of Admission: 11/10/17 Purpose of Consultation: Bilateral cellulitis Chief Complaint: Patient BRICE ISRAEL was admitted to location Medical/ Surgical Unit I with BILATERAL CELLULITIS OF LOWE EXTREMITIES. History of Present Illness: 62-year-old female with a past medical history of dementia, psychosis, depression, hypertension, brought into the ER for multiple crusted ulcer with surrounding erythema and swelling of both legs. Patient also complained of pain. Patient was diagnosed to have cellulitis admitted to MedSurg unit. Antibiotic-kennedy, Rocephin was started and ID consult was called for antibiotic management. The patient has no fever and has no leukocytosis. Past Medical History: dementia, psychosis, depression, hypertension, Diagnoses HYPERLIPIDEMIA, UNSPECIFIED (11/10/17) UNSPECIFIED DEMENTIA WITHOUT BEHAVIORAL DISTURBANCE (11/10/17) UNSP PSYCHOSIS NOT DUE TO A SUBSTANCE OR KNOWN PHYSIOL COND (11/10/17) MAJOR DEPRESSIVE DISORDER, SINGLE EPISODE, UNSPECIFIED (11/10/17) ESSENTIAL (PRIMARY) HYPERTENSION (11/10/17) CELLULITIS OF RIGHT LOWER LIMB (11/10/17) CELLULITIS OF LEFT LOWER LIMB (11/10/17) URINARY TRACT INFECTION, SITE NOT SPECIFIED (11/10/17) WEAKNESS (11/10/17) Allergies Allergy/AdvReac Type Severity Reaction Status Date / Time No Known Allergies Allergy Verified 09/05/17 17:05 Vital Signs Temp 97.5 F 11/11/17 12:00 Pulse 83 11/11/17 12:00 Resp 18 11/11/17 12:00 BP 126/78 11/11/17 12:00 Pulse Ox 98 11/11/17 12:00 Intake & Output 11/10/17 11/11/17 11/11/17 18:59 06:59 18:59 Intake Total 360 Balance 360 Weight (lbs) 93.44 kg 93.44 kg Intake: Oral 360 Other: # Voids 2 # Bowel Movements 0 Weight Source Standing scale Bedscale Laboratory Results - last 24 hr 11/10/17 11/10/17 11/10/17 13:36 13:36 13:36 WBC 6.3 RBC 4.02 Hgb 12.9 Hct 39.4 L MCV 98.2 MCH 32.2 H MCHC Differential 32.8 RDW 13.3 Plt Count 344 MPV 7.9 Neutrophils % 70.4 Lymphocytes % 20.5 Monocytes % 7.1 Eosinophils % 1.8 Basophils % 0.2 PT 10.7 INR 1.03 PTT (Actin FS) 30.1 Sodium 136 Potassium 3.5 Chloride 102 Carbon Dioxide 29.6 Anion Gap 7.9 BUN 11 Creatinine 0.8 Est GFR ( Amer) > 60.0 Est GFR (Non-Af Amer) > 60.0 BUN/Creatinine Ratio 13.8 Glucose 79 Whole Bld Lactic Acid Calcium 8.8 Total Bilirubin 0.3 AST 12 L ALT 12 Alkaline Phosphatase 77 Creatine Kinase 85 Troponin I Total Protein 7.1 Albumin 3.4 L Globulin 3.7 Albumin/Globulin Ratio 0.9 L Urine Source Urine Color Urine Clarity Urine pH Ur Specific [place] Urine Protein Urine Glucose (UA) Urine Ketones Urine Blood Urine Nitrate Urine Bilirubin Urine Urobilinogen Ur Leukocyte Esterase Urine RBC Urine WBC Ur Epithelial Cells Urine Bacteria 11/10/17 11/10/17 11/11/17 13:36 15:00 05:50 WBC 6.1 RBC 3.64 L Hgb 11.8 L Hct 35.4 L MCV 97.1 MCH 32.5 H MCHC Differential 33.5 RDW 13.4 Plt Count 326 MPV 8.0 Neutrophils % 65.9 Lymphocytes % 24.6 Monocytes % 6.7 Eosinophils % 1.8 Basophils % 1.0 PT INR PTT (Actin FS) Sodium Potassium Chloride Carbon Dioxide Anion Gap BUN Creatinine Est GFR ( Amer) Est GFR (Non-Af Amer) BUN/Creatinine Ratio Glucose Whole Bld Lactic Acid Cancelled Calcium Total Bilirubin AST ALT Alkaline Phosphatase Creatine Kinase Troponin I < 0.01 L Total Protein Albumin Globulin Albumin/Globulin Ratio Urine Source [place] Urine Color YELLOW Urine Clarity CLEAR Urine pH 6.0 Ur Specific [place] 1.010 Urine Protein NEGATIVE Urine Glucose (UA) NEGATIVE Urine Ketones NEGATIVE Urine Blood TRACE Urine Nitrate NEGATIVE Urine Bilirubin NEGATIVE Urine Urobilinogen 0.2 Ur Leukocyte Esterase SMALL H Urine RBC 2-5 Urine WBC 6-10 H Ur Epithelial Cells MODERATE Urine Bacteria 1+ H 11/11/17 05:50 WBC RBC Hgb Hct MCV MCH MCHC Differential RDW Plt Count MPV Neutrophils % Lymphocytes % Monocytes % Eosinophils % Basophils % PT INR PTT (Actin FS) Sodium 138 Potassium 3.8 Chloride 104 Carbon Dioxide 29.8 Anion Gap 8.0 BUN 9 Creatinine 0.8 Est GFR ( Amer) > 60.0 Est GFR (Non-Af Amer) > 60.0 BUN/Creatinine Ratio 11.3 Glucose 77 Whole Bld Lactic Acid Calcium 8.7 Total Bilirubin 0.3 AST 11 L ALT 10 Alkaline Phosphatase 70 Creatine Kinase Troponin I Total Protein 6.7 Albumin 3.2 L Globulin 3.5 Albumin/Globulin Ratio 0.9 L Urine Source Urine Color Urine Clarity Urine pH Ur Specific [place] Urine Protein Urine Glucose (UA) Urine Ketones Urine Blood Urine Nitrate Urine Bilirubin Urine Urobilinogen Ur Leukocyte Esterase Urine RBC Urine WBC Ur Epithelial Cells Urine Bacteria Home Medication Medication Instructions Recorded Type Acetaminophen [Tylenol] 650 mg PO Q4HR PRN tab 09/30/17 Rx Al Hyd/Mg Hyd/Simethicone [Maalox] 30 ml PO Q4HR PRN udc 09/30/17 Rx Aspirin [Aspirin Chewable] 81 mg PO DAILY ctb 09/30/17 Rx Donepezil Hcl [Aricept] 20 mg PO DAILY tab 09/30/17 Rx Folic Acid [Folate*] 1 mg PO DAILY tab 09/30/17 Rx Magnesium Hydroxide [Milk of 30 ml PO HS PRN udc 09/30/17 Rx Magnesia] Memantine [Namenda] 10 mg PO BID tab 09/30/17 Rx Multivitamin [Theragran] 1 tab PO DAILY tab 09/30/17 Rx QUEtiapine Fumarate [SEROquel] 100 mg PO BID tab 09/30/17 Rx Valproic Acid [Depakene] 250 mg PO TID udc 09/30/17 Rx Venlafaxine HCl ER [Effexor XR] 300 mg PO DAILY cer 09/30/17 Rx buPROPion XL [Wellbutrin Xl*] 300 mg PO DAILY t24 09/30/17 Rx cloNIDine HCl [Catapres] 0.1 mg PO Q8HR PRN tab 09/30/17 Rx Lorazepam [Ativan] 0.5 mg PO Q6H PRN 11/10/17 History Current Medications Generic Name Dose Route Start Last Admin Trade Name Freq PRN Reason Stop Dose Admin Acetaminophen 650 mg 11/10/17 15:54 Tylenol PO 01/09/18 15:53 Q4H PRN Mild Pain / Temp above 100 Al Hydrox/Mg Hydrox/Simethicone 30 ml 11/10/17 15:54 Maalox PO 01/09/18 15:53 Q4H PRN GI DISTRESS Aspirin 81 mg 11/11/17 09:00 11/11/17 08:46 Aspirin Chewable PO 01/10/18 08:59 81 mg DAILY BLAKE Administration Bupropion HCl 300 mg 11/11/17 09:00 11/11/17 10:31 Wellbutrin Xl PO 01/10/18 08:59 300 mg DAILY BLAKE Administration Protocol Donepezil HCl 20 mg 11/11/17 09:00 11/11/17 08:46 Aricept PO 01/10/18 08:59 20 mg DAILY B[facility]KE Administration Folic Acid 1 mg 11/11/17 09:00 11/11/17 08:46 Folate PO 01/10/18 08:59 1 mg DAILY [facility]KE Administration Ceftriaxone Sodium 1 gm/ 50 mls @ 100 mls/hr 11/11/17 09:00 11/11/17 08:45 Sodium Chloride IV 01/10/18 08:59 100 mls/hr Q24HR [facility]KE Administration Lorazepam 0.5 mg 11/10/17 15:54 Ativan PO 01/09/18 15:53 Q6H PRN Anxiety Protocol Magnesium Hydroxide 30 ml 11/10/17 15:54 Milk Of Magnesia PO 01/09/18 15:53 HS PRN Constipation Memantine 10 mg 11/10/17 17:00 11/11/17 08:47 Namenda PO 01/09/18 16:59 10 mg BID B[facility]KE Administration Multivitamins/Vitamin C 1 tab 11/11/17 09:00 11/11/17 08:47 Theragran PO 01/10/18 08:59 1 tab DAILY [facility] Administration Quetiapine Fumarate 100 mg 11/10/17 17:00 11/11/17 08:47 Seroquel PO 01/09/18 16:59 100 mg BID [facility] Administration Protocol Valproate Sodium 250 mg 11/10/17 21:00 11/11/17 13:50 Depakene PO 01/09/18 20:59 250 mg TID [facility] Administration Protocol Venlafaxine HCl 300 mg 11/11/17 09:00 11/11/17 08:46 Effexor Xr PO 01/10/18 08:59 300 mg DAILY [facility] Administration Protocol Review of Systems: A 12 point ROS was reviewed with the pertinent positive and negatives noted in the HPI. Social History Smoking Status Smoker, status unknown Drug Use No Alcohol Use No Family Medical History Unknown. Physical Exam: General: A febrile, lying in bed. Not in acute distress. HEENT: At: Normocephalic, atraumatic. Oral cavity: Moist, pink tongue. Eyes: No pallor and icterus. PERRLA EOMI. Neck: PERRL, no JVD no use of accessory neck muscles. No lymphadenopathy. Cardio: S1 and S2 within normal limits regular rhythm no murmur no gallop Respiratory: Vesicular sounds. No crackles no wheezing. Decreased breath sounds bases. Abdominal: Soft, nontender nondistended bowel sounds present. Genital/Urinary: Deferred. Extremities: No cyanosis no clubbing bilateral pitting edema. There is much stable crusted ulcers with surrounding erythema of both lower legs. Neurological: Alert, awake, oriented 3. No focal neuro deficit. Assessment: 1. Cellulitis of both legs with the multiple superficial healing wounds. 2. Hypertension. 3. Hyperlipidemia. 4. Dementia. 5. Depression. Plan: Continue Rocephin and add doxycycline by mouth. See the response and go from there. Thank you, Dr. Kent, for involving me in taking care of this patient. Signed, Bishnu Beck M.D. [id number]
--- NOTE | 2017-11-12 08:21 | General Progress Note ---
Subjective - Review of Systems Service Date: 11/12/17 Subjective: Patient was seen and evaluated. Awake, alert , no acute distress. Objective - Results Result Diagrams: 11/11/17 05:50 11/11/17 05:50 Recent Labs: Laboratory Last Values WBC 6.1 Th/cmm (4.8-10.8) 11/11/17 05:50 RBC 3.64 Mil/cmm (3.80-5.10) L 11/11/17 05:50 Hgb 11.8 gm/dL (12-16) L 11/11/17 05:50 Hct 35.4 % (41.0-60) L 11/11/17 05:50 MCV 97.1 fl (81-100) 11/11/17 05:50 MCH 32.5 pg (27.0-31.0) H 11/11/17 05:50 MCHC Differential 33.5 pg (28.0-36.0) 11/11/17 05:50 RDW 13.4 % (11.5-20.0) 11/11/17 05:50 Plt Count 326 Th/cmm (150-400) 11/11/17 05:50 MPV 8.0 fl 11/11/17 05:50 Neutrophils % 65.9 % (40.0-80.0) 11/11/17 05:50 Lymphocytes % 24.6 % (20.0-50.0) 11/11/17 05:50 Monocytes % 6.7 % (2.0-10.0) 11/11/17 05:50 Eosinophils % 1.8 % (0.0-5.0) 11/11/17 05:50 Basophils % 1.0 % (0.0-2.0) 11/11/17 05:50 PT 10.7 SECONDS (9.5-11.5) 11/10/17 13:36 INR 1.03 (0.5-1.4) 11/10/17 13:36 PTT (Actin FS) 30.1 SECONDS (26.0-38.0) 11/10/17 13:36 Sodium 138 mEq/L (136-145) 11/11/17 05:50 Potassium 3.8 mEq/L (3.5-5.1) 11/11/17 05:50 Chloride 104 mEq/L (98-107) 11/11/17 05:50 Carbon Dioxide 29.8 mEq/L (21.0-31.0) 11/11/17 05:50 Anion Gap 8.0 (7.0-16.0) 11/11/17 05:50 BUN 9 mg/dL (7-25) 11/11/17 05:50 Creatinine 0.8 mg/dL (0.6-1.2) 11/11/17 05:50 Est GFR ( Amer) > 60.0 ml/min (>90) 11/11/17 05:50 Est GFR (Non-Af Amer) > 60.0 ml/min 11/11/17 05:50 BUN/Creatinine Ratio 11.3 11/11/17 05:50 Glucose 77 mg/dL (70-105) 11/11/17 05:50 Whole Bld Lactic Acid 0.85 mmol/L (0.60-1.99) 11/10/17 13:45 Calcium 8.7 mg/dL (8.6-10.3) 11/11/17 05:50 Total Bilirubin 0.3 mg/dL (0.3-1.0) 11/11/17 05:50 AST 11 U/L (13-39) L 11/11/17 05:50 ALT 10 U/L (7-52) 11/11/17 05:50 Alkaline Phosphatase 70 U/L (34-104) 11/11/17 05:50 Creatine Kinase 85 U/L (30-223) 11/10/17 13:36 Troponin I < 0.01 ng/mL (0.01-0.05) L 11/10/17 13:36 Total Protein 6.7 gm/dL (6.0-8.3) 11/11/17 05:50 Albumin 3.2 gm/dL (3.7-5.3) L 11/11/17 05:50 Globulin 3.5 gm/dL 11/11/17 05:50 Albumin/Globulin Ratio 0.9 (1.0-1.8) L 11/11/17 05:50 Urine Source [place] 11/10/17 15:00 Urine Color YELLOW 11/10/17 15:00 Urine Clarity CLEAR (CLEAR) 11/10/17 15:00 Urine pH 6.0 (4.6 - 8.0) 11/10/17 15:00 Ur Specific [place] 1.010 (1.005-1.030) 11/10/17 15:00 Urine Protein NEGATIVE mg/dL (NEGATIVE) 11/10/17 15:00 Urine Glucose (UA) NEGATIVE mg/dL (NEGATIVE) 11/10/17 15:00 Urine Ketones NEGATIVE mg/dL (NEGATIVE) 11/10/17 15:00 Urine Blood TRACE (NEGATIVE) 11/10/17 15:00 Urine Nitrate NEGATIVE (NEGATIVE) 11/10/17 15:00 Urine Bilirubin NEGATIVE (NEGATIVE) 11/10/17 15:00 Urine Urobilinogen 0.2 E.U./dL (0.2 - 1.0) 11/10/17 15:00 Ur Leukocyte Esterase SMALL (NEGATIVE) H 11/10/17 15:00 Urine RBC 2-5 /hpf (0-5) 11/10/17 15:00 Urine WBC 6-10 /hpf (0-5) H 11/10/17 15:00 Ur Epithelial Cells MODERATE /lpf (FEW) 11/10/17 15:00 Urine Bacteria 1+ /hpf (NONE SEEN) H 11/10/17 15:00 - Physical Exam Vitals and I&O: Vital Signs Temp 97.7 F 11/12/17 07:55 Pulse 74 11/12/17 07:55 Resp 18 11/12/17 07:55 BP 144/82 11/12/17 07:55 Pulse Ox 98 11/12/17 07:55 Intake & Output 11/11/17 11/12/17 11/12/17 18:59 06:59 18:59 Intake Total 750 240 Balance 750 240 Weight (lbs) 93.44 kg 93.44 kg Intake: Oral 750 240 Other: # Voids 3 2 # Bowel Movements 1 0 Weight Source Bedscale Bedscale Active Medications: Current Medications Acetaminophen (Tylenol) 650 mg PO Q4H PRN PRN Reason: Mild Pain / Temp above 100 Stop: 01/09/18 15:53 Al Hydrox/Mg Hydrox/Simethicone (Maalox) 30 ml PO Q4H PRN PRN Reason: GI DISTRESS Stop: 01/09/18 15:53 Aspirin (Aspirin Chewable) 81 mg PO DAILY [facility] Stop: 01/10/18 08:59 Last Admin: 11/11/17 08:46 Dose: 81 mg Bupropion HCl (Wellbutrin Xl) 300 mg PO DAILY [facility]; Protocol Stop: 01/10/18 08:59 Last Admin: 11/11/17 10:31 Dose: 300 mg Donepezil HCl (Aricept) 20 mg PO DAILY [facility] Stop: 01/10/18 08:59 Last Admin: 11/11/17 08:46 Dose: 20 mg Doxycycline Hyclate (Vibramycin) 100 mg PO Q12HR [facility] Stop: 01/10/18 20:59 Last Admin: 11/11/17 20:51 Dose: 100 mg Folic Acid (Folate) 1 mg PO DAILY [facility] Stop: 01/10/18 08:59 Last Admin: 11/11/17 08:46 Dose: 1 mg Ceftriaxone Sodium 1 gm/ (Sodium Chloride) 50 mls @ 100 mls/hr IV Q24HR [facility] Stop: 01/10/18 08:59 Last Admin: 11/11/17 08:45 Dose: 100 mls/hr Lorazepam (Ativan) 0.5 mg PO Q6H PRN; Protocol PRN Reason: Anxiety Stop: 01/09/18 15:53 Last Admin: 11/11/17 21:14 Dose: 0.5 mg Magnesium Hydroxide (Milk Of Magnesia) 30 ml PO HS PRN PRN Reason: Constipation Stop: 01/09/18 15:53 Memantine (Namenda) 10 mg PO BID [facility] Stop: 01/09/18 16:59 Last Admin: 11/11/17 16:07 Dose: 10 mg Multivitamins/Vitamin C (Theragran) 1 tab PO DAILY [facility] Stop: 01/10/18 08:59 Last Admin: 11/11/17 08:47 Dose: 1 tab Quetiapine Fumarate (Seroquel) 100 mg PO BID [facility]; Protocol Stop: 01/09/18 16:59 Last Admin: 11/11/17 16:07 Dose: 100 mg Valproate Sodium (Depakene) 250 mg PO TID [facility]; Protocol Stop: 01/09/18 20:59 Last Admin: 11/11/17 20:51 Dose: 250 mg Venlafaxine HCl (Effexor Xr) 300 mg PO DAILY [facility]; Protocol Stop: 01/10/18 08:59 Last Admin: 11/11/17 08:46 Dose: 300 mg General: Alert, Oriented x3, No acute distress HEENT: Atraumatic, PERRLA, EOMI Neck: Supple, no JVD, no Thyromegaly Cardiovascular: Regular rate, Normal S1, Normal S2 Lungs: Clear to auscultation Abdomen: Bowel sounds, Soft Extremities: Edema (lower extremities. ) Skin: Other (cellulitis to lower extremities. ) Assessment/Plan - Assessment Assessment: bilateral lower extremity cellulitis HTN hyperlipidemia Depression Bipolar disorder psychosis dementia. - Plan Plan: continue current orders.
[2017-11-12] MEDS: Multivitamin Tab PO SCH (09:17)
[2017-11-12] MEDS: Aspirin 81mg Chewable Tab PO SCH (09:18)
[2017-11-12] MEDS: buPROPion XL 150 mg T 24 H PO SCH (09:19)
[2017-11-12] MEDS: cefTRIAXone 1 GM in Sodium Chloride 0.9% 50 ML IV SCH (10:31)
--- NOTE | 2017-11-12 11:44 | Progress Notes ---
DATE: 11/12/2017 Case was discussed with staff of the patient, reviewed records. The patient continues to be unpredictable, impulsive, needing redirection. She is demented, confused, unable to make safe plan for self-care. Continues to have poor insight with episodes of agitation. She is in no acute distress, recovering from lower extremity cellulitis. Thank you very much for allowing me to participate in the care of this most interesting lady. ROBERTS CHAPEL# [id number]
--- NOTE | 2017-11-12 23:43 | Infectious Disease Prog Note ---
Infectious Disease Subjective - Review of Systems Service Date: 11/12/17 Subjective: No new change, no fever. Infectious Disease Objective - Results Result Diagrams: 11/11/17 05:50 11/11/17 05:50 Recent Labs: Laboratory Last Values WBC 6.1 Th/cmm (4.8-10.8) 11/11/17 05:50 RBC 3.64 Mil/cmm (3.80-5.10) L 11/11/17 05:50 Hgb 11.8 gm/dL (12-16) L 11/11/17 05:50 Hct 35.4 % (41.0-60) L 11/11/17 05:50 MCV 97.1 fl (81-100) 11/11/17 05:50 MCH 32.5 pg (27.0-31.0) H 11/11/17 05:50 MCHC Differential 33.5 pg (28.0-36.0) 11/11/17 05:50 RDW 13.4 % (11.5-20.0) 11/11/17 05:50 Plt Count 326 Th/cmm (150-400) 11/11/17 05:50 MPV 8.0 fl 11/11/17 05:50 Neutrophils % 65.9 % (40.0-80.0) 11/11/17 05:50 Lymphocytes % 24.6 % (20.0-50.0) 11/11/17 05:50 Monocytes % 6.7 % (2.0-10.0) 11/11/17 05:50 Eosinophils % 1.8 % (0.0-5.0) 11/11/17 05:50 Basophils % 1.0 % (0.0-2.0) 11/11/17 05:50 PT 10.7 SECONDS (9.5-11.5) 11/10/17 13:36 INR 1.03 (0.5-1.4) 11/10/17 13:36 PTT (Actin FS) 30.1 SECONDS (26.0-38.0) 11/10/17 13:36 Sodium 138 mEq/L (136-145) 11/11/17 05:50 Potassium 3.8 mEq/L (3.5-5.1) 11/11/17 05:50 Chloride 104 mEq/L (98-107) 11/11/17 05:50 Carbon Dioxide 29.8 mEq/L (21.0-31.0) 11/11/17 05:50 Anion Gap 8.0 (7.0-16.0) 11/11/17 05:50 BUN 9 mg/dL (7-25) 11/11/17 05:50 Creatinine 0.8 mg/dL (0.6-1.2) 11/11/17 05:50 Est GFR ( Amer) > 60.0 ml/min (>90) 11/11/17 05:50 Est GFR (Non-Af Amer) > 60.0 ml/min 11/11/17 05:50 BUN/Creatinine Ratio 11.3 11/11/17 05:50 Glucose 77 mg/dL (70-105) 11/11/17 05:50 Whole Bld Lactic Acid 0.85 mmol/L (0.60-1.99) 11/10/17 13:45 Calcium 8.7 mg/dL (8.6-10.3) 11/11/17 05:50 Total Bilirubin 0.3 mg/dL (0.3-1.0) 11/11/17 05:50 AST 11 U/L (13-39) L 11/11/17 05:50 ALT 10 U/L (7-52) 11/11/17 05:50 Alkaline Phosphatase 70 U/L (34-104) 11/11/17 05:50 Creatine Kinase 85 U/L (30-223) 11/10/17 13:36 Troponin I < 0.01 ng/mL (0.01-0.05) L 11/10/17 13:36 Total Protein 6.7 gm/dL (6.0-8.3) 11/11/17 05:50 Albumin 3.2 gm/dL (3.7-5.3) L 11/11/17 05:50 Globulin 3.5 gm/dL 11/11/17 05:50 Albumin/Globulin Ratio 0.9 (1.0-1.8) L 11/11/17 05:50 Urine Source [place] 11/10/17 15:00 Urine Color YELLOW 11/10/17 15:00 Urine Clarity CLEAR (CLEAR) 11/10/17 15:00 Urine pH 6.0 (4.6 - 8.0) 11/10/17 15:00 Ur Specific [place] 1.010 (1.005-1.030) 11/10/17 15:00 Urine Protein NEGATIVE mg/dL (NEGATIVE) 11/10/17 15:00 Urine Glucose (UA) NEGATIVE mg/dL (NEGATIVE) 11/10/17 15:00 Urine Ketones NEGATIVE mg/dL (NEGATIVE) 11/10/17 15:00 Urine Blood TRACE (NEGATIVE) 11/10/17 15:00 Urine Nitrate NEGATIVE (NEGATIVE) 11/10/17 15:00 Urine Bilirubin NEGATIVE (NEGATIVE) 11/10/17 15:00 Urine Urobilinogen 0.2 E.U./dL (0.2 - 1.0) 11/10/17 15:00 Ur Leukocyte Esterase SMALL (NEGATIVE) H 11/10/17 15:00 Urine RBC 2-5 /hpf (0-5) 11/10/17 15:00 Urine WBC 6-10 /hpf (0-5) H 11/10/17 15:00 Ur Epithelial Cells MODERATE /lpf (FEW) 11/10/17 15:00 Urine Bacteria 1+ /hpf (NONE SEEN) H 11/10/17 15:00 - Physical Exam Vitals and I&O: Vital Signs Temp 98.8 F 11/12/17 20:00 Pulse 78 11/12/17 20:00 Resp 18 11/12/17 20:00 BP 108/65 11/12/17 20:00 Pulse Ox 96 11/12/17 20:00 Intake & Output 11/12/17 11/12/17 11/13/17 06:59 18:59 06:59 Intake Total 240 1250 Balance 240 1250 Weight (lbs) 93.44 kg 93.44 kg Intake: Oral 240 1250 Other: # Voids 2 3 # Bowel Movements 0 Weight Source Bedscale Bedscale Active Medications: Current Medications Acetaminophen (Tylenol) 650 mg PO Q4H PRN PRN Reason: Mild Pain / Temp above 100 Stop: 01/09/18 15:53 Al Hydrox/Mg Hydrox/Simethicone (Maalox) 30 ml PO Q4H PRN PRN Reason: GI DISTRESS Stop: 01/09/18 15:53 Aspirin (Aspirin Chewable) 81 mg PO DAILY [facility] Stop: 01/10/18 08:59 Last Admin: 11/12/17 09:18 Dose: 81 mg Bupropion HCl (Wellbutrin Xl) 300 mg PO DAILY [facility]; Protocol Stop: 01/10/18 08:59 Last Admin: 11/12/17 09:19 Dose: 300 mg Donepezil HCl (Aricept) 20 mg PO DAILY [facility] Stop: 01/10/18 08:59 Last Admin: 11/12/17 09:18 Dose: 20 mg Doxycycline Hyclate (Vibramycin) 100 mg PO Q12HR [facility] Stop: 01/10/18 20:59 Last Admin: 11/12/17 21:59 Dose: 100 mg Folic Acid (Folate) 1 mg PO DAILY [facility] Stop: 01/10/18 08:59 Last Admin: 11/12/17 09:17 Dose: 1 mg Ceftriaxone Sodium 1 gm/ (Sodium Chloride) 50 mls @ 100 mls/hr IV Q24HR [facility] Stop: 01/10/18 08:59 Last Admin: 11/12/17 10:31 Dose: 100 mls/hr Lorazepam (Ativan) 0.5 mg PO Q6H PRN; Protocol PRN Reason: Anxiety Stop: 01/09/18 15:53 Last Admin: 11/11/17 21:14 Dose: 0.5 mg Magnesium Hydroxide (Milk Of Magnesia) 30 ml PO HS PRN PRN Reason: Constipation Stop: 01/09/18 15:53 Memantine (Namenda) 10 mg PO BID [facility] Stop: 01/09/18 16:59 Last Admin: 11/12/17 16:32 Dose: 10 mg Multivitamins/Vitamin C (Theragran) 1 tab PO DAILY [facility] Stop: 01/10/18 08:59 Last Admin: 11/12/17 09:17 Dose: 1 tab Mupirocin (Bactroban Oint) 1 appl NS BID [facility] Stop: 11/17/17 09:01 Last Admin: 11/12/17 16:32 Dose: 1 appl Quetiapine Fumarate (Seroquel) 100 mg PO BID [facility]; Protocol Stop: 01/09/18 16:59 Last Admin: 11/12/17 16:31 Dose: 100 mg Valproate Sodium (Depakene) 250 mg PO TID [facility]; Protocol Stop: 01/09/18 20:59 Last Admin: 11/12/17 21:59 Dose: 250 mg Venlafaxine HCl (Effexor Xr) 300 mg PO DAILY [facility]; Protocol Stop: 01/10/18 08:59 Last Admin: 11/12/17 09:18 Dose: 300 mg General: no acute distress, well developed, well nourished HEENT: normocephalic, PERRLA, EOMI, moist mucous membrane Neck: supple, no thyromegaly, no lymphadenopathy, no rigid Cardiovascular: S1S2, regular, systolic murmur Lungs: clear to auscultation bilaterally Abdomen: soft, no tender, no distended, no mass, no hepatomegaly, no splenomegaly Extremities: edema, other (there are superficial scab owunds with surrounding erythema), no cyanosis, no clubbing Neurological: awake, alert Skin: intact Infectious Disease Assmt/Plan - Assessment Assessment: 1. Cellulitis of both legs with the multiple superficial healing wounds. 2. Hypertension. 3. Hyperlipidemia. 4. Dementia. 5. Depression. - Plan Plan: Continue same treatment.
--- NOTE | 2017-11-13 05:09 | General Progress Note ---
Subjective - Review of Systems Service Date: 11/13/17 Subjective: Patient was seen and evaluated. Awake, alert , no acute distress. Objective - Results Result Diagrams: 11/11/17 05:50 11/11/17 05:50 Recent Labs: Laboratory Last Values WBC 6.1 Th/cmm (4.8-10.8) 11/11/17 05:50 RBC 3.64 Mil/cmm (3.80-5.10) L 11/11/17 05:50 Hgb 11.8 gm/dL (12-16) L 11/11/17 05:50 Hct 35.4 % (41.0-60) L 11/11/17 05:50 MCV 97.1 fl (81-100) 11/11/17 05:50 MCH 32.5 pg (27.0-31.0) H 11/11/17 05:50 MCHC Differential 33.5 pg (28.0-36.0) 11/11/17 05:50 RDW 13.4 % (11.5-20.0) 11/11/17 05:50 Plt Count 326 Th/cmm (150-400) 11/11/17 05:50 MPV 8.0 fl 11/11/17 05:50 Neutrophils % 65.9 % (40.0-80.0) 11/11/17 05:50 Lymphocytes % 24.6 % (20.0-50.0) 11/11/17 05:50 Monocytes % 6.7 % (2.0-10.0) 11/11/17 05:50 Eosinophils % 1.8 % (0.0-5.0) 11/11/17 05:50 Basophils % 1.0 % (0.0-2.0) 11/11/17 05:50 PT 10.7 SECONDS (9.5-11.5) 11/10/17 13:36 INR 1.03 (0.5-1.4) 11/10/17 13:36 PTT (Actin FS) 30.1 SECONDS (26.0-38.0) 11/10/17 13:36 Sodium 138 mEq/L (136-145) 11/11/17 05:50 Potassium 3.8 mEq/L (3.5-5.1) 11/11/17 05:50 Chloride 104 mEq/L (98-107) 11/11/17 05:50 Carbon Dioxide 29.8 mEq/L (21.0-31.0) 11/11/17 05:50 Anion Gap 8.0 (7.0-16.0) 11/11/17 05:50 BUN 9 mg/dL (7-25) 11/11/17 05:50 Creatinine 0.8 mg/dL (0.6-1.2) 11/11/17 05:50 Est GFR ( Amer) > 60.0 ml/min (>90) 11/11/17 05:50 Est GFR (Non-Af Amer) > 60.0 ml/min 11/11/17 05:50 BUN/Creatinine Ratio 11.3 11/11/17 05:50 Glucose 77 mg/dL (70-105) 11/11/17 05:50 Whole Bld Lactic Acid 0.85 mmol/L (0.60-1.99) 11/10/17 13:45 Calcium 8.7 mg/dL (8.6-10.3) 11/11/17 05:50 Total Bilirubin 0.3 mg/dL (0.3-1.0) 11/11/17 05:50 AST 11 U/L (13-39) L 11/11/17 05:50 ALT 10 U/L (7-52) 11/11/17 05:50 Alkaline Phosphatase 70 U/L (34-104) 11/11/17 05:50 Creatine Kinase 85 U/L (30-223) 11/10/17 13:36 Troponin I < 0.01 ng/mL (0.01-0.05) L 11/10/17 13:36 Total Protein 6.7 gm/dL (6.0-8.3) 11/11/17 05:50 Albumin 3.2 gm/dL (3.7-5.3) L 11/11/17 05:50 Globulin 3.5 gm/dL 11/11/17 05:50 Albumin/Globulin Ratio 0.9 (1.0-1.8) L 11/11/17 05:50 Urine Source MIDSTREAM 11/10/17 15:00 Urine Color YELLOW 11/10/17 15:00 Urine Clarity CLEAR (CLEAR) 11/10/17 15:00 Urine pH 6.0 (4.6 - 8.0) 11/10/17 15:00 Ur Specific [place] 1.010 (1.005-1.030) 11/10/17 15:00 Urine Protein NEGATIVE mg/dL (NEGATIVE) 11/10/17 15:00 Urine Glucose (UA) NEGATIVE mg/dL (NEGATIVE) 11/10/17 15:00 Urine Ketones NEGATIVE mg/dL (NEGATIVE) 11/10/17 15:00 Urine Blood TRACE (NEGATIVE) 11/10/17 15:00 Urine Nitrate NEGATIVE (NEGATIVE) 11/10/17 15:00 Urine Bilirubin NEGATIVE (NEGATIVE) 11/10/17 15:00 Urine Urobilinogen 0.2 E.U./dL (0.2 - 1.0) 11/10/17 15:00 Ur Leukocyte Esterase SMALL (NEGATIVE) H 11/10/17 15:00 Urine RBC 2-5 /hpf (0-5) 11/10/17 15:00 Urine WBC 6-10 /hpf (0-5) H 11/10/17 15:00 Ur Epithelial Cells MODERATE /lpf (FEW) 11/10/17 15:00 Urine Bacteria 1+ /hpf (NONE SEEN) H 11/10/17 15:00 - Physical Exam Vitals and I&O: Vital Signs Temp 98.8 F 11/12/17 20:00 Pulse 78 11/12/17 20:00 Resp 18 11/12/17 20:00 BP 108/65 11/12/17 20:00 Pulse Ox 96 11/12/17 20:00 Intake & Output 11/12/17 11/12/17 11/13/17 06:59 18:59 06:59 Intake Total 240 1250 Balance 240 1250 Weight (lbs) 93.44 kg 93.44 kg Intake: Oral 240 1250 Other: # Voids 2 3 # Bowel Movements 0 Weight Source Bedscale Bedscale Active Medications: Current Medications Acetaminophen (Tylenol) 650 mg PO Q4H PRN PRN Reason: Mild Pain / Temp above 100 Stop: 01/09/18 15:53 Al Hydrox/Mg Hydrox/Simethicone (Maalox) 30 ml PO Q4H PRN PRN Reason: GI DISTRESS Stop: 01/09/18 15:53 Aspirin (Aspirin Chewable) 81 mg PO DAILY [facility] Stop: 01/10/18 08:59 Last Admin: 11/12/17 09:18 Dose: 81 mg Bupropion HCl (Wellbutrin Xl) 300 mg PO DAILY [facility]; Protocol Stop: 01/10/18 08:59 Last Admin: 11/12/17 09:19 Dose: 300 mg Donepezil HCl (Aricept) 20 mg PO DAILY [facility] Stop: 01/10/18 08:59 Last Admin: 11/12/17 09:18 Dose: 20 mg Doxycycline Hyclate (Vibramycin) 100 mg PO Q12HR [facility] Stop: 01/10/18 20:59 Last Admin: 11/12/17 21:59 Dose: 100 mg Folic Acid (Folate) 1 mg PO DAILY [facility] Stop: 01/10/18 08:59 Last Admin: 11/12/17 09:17 Dose: 1 mg Ceftriaxone Sodium 1 gm/ (Sodium Chloride) 50 mls @ 100 mls/hr IV Q24HR [facility] Stop: 01/10/18 08:59 Last Admin: 11/12/17 10:31 Dose: 100 mls/hr Lorazepam (Ativan) 0.5 mg PO Q6H PRN; Protocol PRN Reason: Anxiety Stop: 01/09/18 15:53 Last Admin: 11/11/17 21:14 Dose: 0.5 mg Magnesium Hydroxide (Milk Of Magnesia) 30 ml PO HS PRN PRN Reason: Constipation Stop: 01/09/18 15:53 Memantine (Namenda) 10 mg PO BID [facility] Stop: 01/09/18 16:59 Last Admin: 11/12/17 16:32 Dose: 10 mg Multivitamins/Vitamin C (Theragran) 1 tab PO DAILY [facility] Stop: 01/10/18 08:59 Last Admin: 11/12/17 09:17 Dose: 1 tab Mupirocin (Bactroban Oint) 1 appl NS BID [facility] Stop: 11/17/17 09:01 Last Admin: 11/12/17 16:32 Dose: 1 appl Quetiapine Fumarate (Seroquel) 100 mg PO BID [facility]; Protocol Stop: 01/09/18 16:59 Last Admin: 11/12/17 16:31 Dose: 100 mg Valproate Sodium (Depakene) 250 mg PO TID [facility]; Protocol Stop: 01/09/18 20:59 Last Admin: 11/12/17 21:59 Dose: 250 mg Venlafaxine HCl (Effexor Xr) 300 mg PO DAILY [facility]; Protocol Stop: 01/10/18 08:59 Last Admin: 11/12/17 09:18 Dose: 300 mg General: Alert, Oriented x3, No acute distress HEENT: Atraumatic, PERRLA, EOMI Neck: Supple, no JVD, no Thyromegaly Cardiovascular: Regular rate, Normal S1, Normal S2 Lungs: Clear to auscultation Abdomen: Bowel sounds, Soft Extremities: Edema (lower extremities. ) Skin: Other (cellulitis to lower extremities. ) Assessment/Plan - Assessment Assessment: bilateral lower extremity cellulitis HTN hyperlipidemia Depression Bipolar disorder psychosis dementia UTI - Plan Plan: continue current orders.
[2017-11-13] MEDS: cefTRIAXone 1 GM in Sodium Chloride 0.9% 50 ML IV SCH (09:55)
[2017-11-13] MEDS: buPROPion XL 150 mg T 24 H PO SCH (09:55)
[2017-11-13] MEDS: Aspirin 81mg Chewable Tab PO SCH (09:56)
[2017-11-13] MEDS: Multivitamin Tab PO SCH (09:57)
--- NOTE | 2017-11-13 12:56 | Infectious Disease Prog Note ---
Infectious Disease Subjective - Review of Systems Service Date: 11/13/17 Subjective: No new change, no fever. Infectious Disease Objective - Results Result Diagrams: 11/11/17 05:50 11/11/17 05:50 Recent Labs: Laboratory Last Values WBC 6.1 Th/cmm (4.8-10.8) 11/11/17 05:50 RBC 3.64 Mil/cmm (3.80-5.10) L 11/11/17 05:50 Hgb 11.8 gm/dL (12-16) L 11/11/17 05:50 Hct 35.4 % (41.0-60) L 11/11/17 05:50 MCV 97.1 fl (81-100) 11/11/17 05:50 MCH 32.5 pg (27.0-31.0) H 11/11/17 05:50 MCHC Differential 33.5 pg (28.0-36.0) 11/11/17 05:50 RDW 13.4 % (11.5-20.0) 11/11/17 05:50 Plt Count 326 Th/cmm (150-400) 11/11/17 05:50 MPV 8.0 fl 11/11/17 05:50 Neutrophils % 65.9 % (40.0-80.0) 11/11/17 05:50 Lymphocytes % 24.6 % (20.0-50.0) 11/11/17 05:50 Monocytes % 6.7 % (2.0-10.0) 11/11/17 05:50 Eosinophils % 1.8 % (0.0-5.0) 11/11/17 05:50 Basophils % 1.0 % (0.0-2.0) 11/11/17 05:50 PT 10.7 SECONDS (9.5-11.5) 11/10/17 13:36 INR 1.03 (0.5-1.4) 11/10/17 13:36 PTT (Actin FS) 30.1 SECONDS (26.0-38.0) 11/10/17 13:36 Sodium 138 mEq/L (136-145) 11/11/17 05:50 Potassium 3.8 mEq/L (3.5-5.1) 11/11/17 05:50 Chloride 104 mEq/L (98-107) 11/11/17 05:50 Carbon Dioxide 29.8 mEq/L (21.0-31.0) 11/11/17 05:50 Anion Gap 8.0 (7.0-16.0) 11/11/17 05:50 BUN 9 mg/dL (7-25) 11/11/17 05:50 Creatinine 0.8 mg/dL (0.6-1.2) 11/11/17 05:50 Est GFR ( Amer) > 60.0 ml/min (>90) 11/11/17 05:50 Est GFR (Non-Af Amer) > 60.0 ml/min 11/11/17 05:50 BUN/Creatinine Ratio 11.3 11/11/17 05:50 Glucose 77 mg/dL (70-105) 11/11/17 05:50 Whole Bld Lactic Acid 0.85 mmol/L (0.60-1.99) 11/10/17 13:45 Calcium 8.7 mg/dL (8.6-10.3) 11/11/17 05:50 Total Bilirubin 0.3 mg/dL (0.3-1.0) 11/11/17 05:50 AST 11 U/L (13-39) L 11/11/17 05:50 ALT 10 U/L (7-52) 11/11/17 05:50 Alkaline Phosphatase 70 U/L (34-104) 11/11/17 05:50 Creatine Kinase 85 U/L (30-223) 11/10/17 13:36 Troponin I < 0.01 ng/mL (0.01-0.05) L 11/10/17 13:36 Total Protein 6.7 gm/dL (6.0-8.3) 11/11/17 05:50 Albumin 3.2 gm/dL (3.7-5.3) L 11/11/17 05:50 Globulin 3.5 gm/dL 11/11/17 05:50 Albumin/Globulin Ratio 0.9 (1.0-1.8) L 11/11/17 05:50 Urine Source MIDSTREAM 11/10/17 15:00 Urine Color YELLOW 11/10/17 15:00 Urine Clarity CLEAR (CLEAR) 11/10/17 15:00 Urine pH 6.0 (4.6 - 8.0) 11/10/17 15:00 Ur Specific [place] 1.010 (1.005-1.030) 11/10/17 15:00 Urine Protein NEGATIVE mg/dL (NEGATIVE) 11/10/17 15:00 Urine Glucose (UA) NEGATIVE mg/dL (NEGATIVE) 11/10/17 15:00 Urine Ketones NEGATIVE mg/dL (NEGATIVE) 11/10/17 15:00 Urine Blood TRACE (NEGATIVE) 11/10/17 15:00 Urine Nitrate NEGATIVE (NEGATIVE) 11/10/17 15:00 Urine Bilirubin NEGATIVE (NEGATIVE) 11/10/17 15:00 Urine Urobilinogen 0.2 E.U./dL (0.2 - 1.0) 11/10/17 15:00 Ur Leukocyte Esterase SMALL (NEGATIVE) H 11/10/17 15:00 Urine RBC 2-5 /hpf (0-5) 11/10/17 15:00 Urine WBC 6-10 /hpf (0-5) H 11/10/17 15:00 Ur Epithelial Cells MODERATE /lpf (FEW) 11/10/17 15:00 Urine Bacteria 1+ /hpf (NONE SEEN) H 11/10/17 15:00 - Physical Exam Vitals and I&O: Vital Signs Temp 98.5 F 11/13/17 12:00 Pulse 84 11/13/17 12:00 Resp 20 11/13/17 12:00 BP 96/64 11/13/17 12:00 Pulse Ox 100 11/13/17 12:00 Intake & Output 11/12/17 11/13/17 11/13/17 18:59 06:59 18:59 Intake Total 1250 200 Balance 1250 200 Weight (lbs) 93.44 kg 92.986 kg Intake: Oral 1250 200 Other: # Voids 3 2 Weight Source Bedscale Patient stated Active Medications: Current Medications Acetaminophen (Tylenol) 650 mg PO Q4H PRN PRN Reason: Mild Pain / Temp above 100 Stop: 01/09/18 15:53 Al Hydrox/Mg Hydrox/Simethicone (Maalox) 30 ml PO Q4H PRN PRN Reason: GI DISTRESS Stop: 01/09/18 15:53 Aspirin (Aspirin Chewable) 81 mg PO DAILY [facility] Stop: 01/10/18 08:59 Last Admin: 11/13/17 09:56 Dose: 81 mg Bupropion HCl (Wellbutrin Xl) 300 mg PO DAILY [facility]; Protocol Stop: 01/10/18 08:59 Last Admin: 11/12/17 09:19 Dose: 300 mg Donepezil HCl (Aricept) 20 mg PO DAILY [facility] Stop: 01/10/18 08:59 Last Admin: 11/13/17 09:56 Dose: 20 mg Doxycycline Hyclate (Vibramycin) 100 mg PO Q12HR [facility] Stop: 01/10/18 20:59 Last Admin: 11/13/17 09:56 Dose: 100 mg Folic Acid (Folate) 1 mg PO DAILY [facility] Stop: 01/10/18 08:59 Last Admin: 11/13/17 09:57 Dose: 1 mg Ceftriaxone Sodium 1 gm/ (Sodium Chloride) 50 mls @ 100 mls/hr IV Q24HR [facility] Stop: 01/10/18 08:59 Last Admin: 11/12/17 10:31 Dose: 100 mls/hr Lorazepam (Ativan) 0.5 mg PO Q6H PRN; Protocol PRN Reason: Anxiety Stop: 01/09/18 15:53 Last Admin: 11/11/17 21:14 Dose: 0.5 mg Magnesium Hydroxide (Milk Of Magnesia) 30 ml PO HS PRN PRN Reason: Constipation Stop: 01/09/18 15:53 Memantine (Namenda) 10 mg PO BID [facility] Stop: 01/09/18 16:59 Last Admin: 11/13/17 09:57 Dose: 10 mg Multivitamins/Vitamin C (Theragran) 1 tab PO DAILY [facility] Stop: 01/10/18 08:59 Last Admin: 11/13/17 09:57 Dose: 1 tab Mupirocin (Bactroban Oint) 1 appl NS BID [facility] Stop: 11/17/17 09:01 Last Admin: 11/12/17 16:32 Dose: 1 appl Quetiapine Fumarate (Seroquel) 100 mg PO BID [facility]; Protocol Stop: 01/09/18 16:59 Last Admin: 11/13/17 09:57 Dose: 100 mg Valproate Sodium (Depakene) 250 mg PO TID [facility]; Protocol Stop: 01/09/18 20:59 Last Admin: 11/13/17 09:57 Dose: 250 mg Venlafaxine HCl (Effexor Xr) 300 mg PO DAILY [facility]; Protocol Stop: 01/10/18 08:59 Last Admin: 11/13/17 09:56 Dose: 300 mg General: no acute distress, well developed, well nourished HEENT: atraumatic, normocephalic, PERRLA Neck: supple, no thyromegaly Cardiovascular: S1S2, regular Lungs: clear to auscultation bilaterally, clear to percussion Abdomen: soft, no tender, no distended Extremities: no cyanosis, no clubbing, no edema Neurological: awake, alert, oriented Skin: other (scab over the superficial wounds, improving surrounding erythema.) Infectious Disease Assmt/Plan - Assessment Assessment: 1. Cellulitis of both legs with the multiple superficial healing wounds. 2. Hypertension. 3. Hyperlipidemia. 4. Dementia. 5. Depression. - Plan Plan: Continue same treatment. Doxy and rocephin. Nutritional Asmnt/Malnutr-PDOC - Dietary Evaluation Malnutrition Findings (Please click <Entered> for more info): Nutritional Asmnt/Malnutrition Start: 11/13/17 12: 15 Text: Status: Complete Freq: Protocol: Document 11/13/17 12:15 TIMO (Rec: 11/13/17 12:22 TIMO [email or web address]) Nutritional Asmnt/Malnutrition Patient General Information Nutritional Screening Moderate Risk Diagnosis bilateral cellulitis of lower extremities Pertinent Medical Hx/Surgical Hx HTN, hyperlipidemia, dementia, bipolar, depression, anxiety Subjective Information Consult received for BLE wounds/cellulitis. Pt seen in bed awake and alert. Pt stated appetite is good, no question or concern about current diet /meals. Per EMR, PO intake 50- 100%, avg 75%. Current Diet Order/ Nutrition Support regular Pertinent Medications folate, theragran, serqoeul Pertinent Labs 11/11 alb 3.2 11/10 alb 3.4 Nutritional Hx/Data Height 1.7 m Height (Calculated Centimeters) 170.2 Current Weight (lbs) 92.986 kg Weight (Calculated Kilograms) 93.0 Weight (Calculated Grams) 52000.4 [place] Body Weight 135 Body Mass Index (BMI) 32.1 Weight Status Obese GI Symptoms GI Symptoms None Last BM 11/11 Difficult in: None Skin Integrity/Comment: rash ulceration to R/L lower extremites Current %PO Good (75-100%) Estimated Nutritional Goals BEE in Kcals: Adj wt of IBW Calories/Kcals/Kg 25-30 Kcals Calculated 2710-0130 Protein: Adj wt of IBW Protein g/k-1.2 Protein Calculated 69-83 Fluid: ml 1725-2070ml (1ml/kcal) Nutritional Problem 1. Problem Problem increased nutrition needs Etiology impaired skin integrity Signs/Symptoms: wound healing for cellulitis Malnutrition Alert Is there a minimum of two criteria No selected? Query Text:Check all the applicable criteria. A minimum of two criteria are recommended for diagnosis of either severe or non-severe malnutrition. Malnutrition Related to Morbid Obesity Malnutrition related to morbid obesity No Intervention/Recommendation Comments 1. Continue with regular diet as ordered. oral intake meets nutritional needs. 2. Monitor PO intake, wt, labs and skin integrity 3. F/U as moderate risk in 3-5 days, 11/16-11/18 Expected Outcomes/Goals Expected Outcomes/Goals 1. PO intake to meet at least 75% of nutritional needs. 2. Wt stability, skin to remain intact, labs to approach WNL. Reviewed by Regla Burnett RD
--- NOTE | 2017-11-13 13:08 | Progress Notes ---
DATE: 11/13/2017 SUBJECTIVE: Case was discussed with staff of the patient, reviewed records. The patient continues to be confused, ____ both of her legs. Continues to have poor insight. Unable to make safe plan for self-care, unpredictable, impulsive, needing redirection. She is compliant with the medication with no side effects, no sedation, no nausea, no extrapyramidal symptoms. Thank you very much for allowing me to participate in the care of this most interesting lady. JOB# [id number]
--- NOTE | 2017-11-15 07:32 | Discharge Summary ---
DATE OF DISCHARGE: 11/13/2017 PRELIMINARY DIAGNOSES: 1. Bilateral lower extremity cellulitis. 2. Hypertension. 3. Hyperlipidemia. 4. Depression. 5. Bipolar disorder. 6. Psychosis. 7. Dementia. DISCHARGE DIAGNOSES: 1. Bilateral lower extremity cellulitis. 2. Hypertension. 3. Hyperlipidemia. 4. Depression. 5. Bipolar disorder. 6. Psychosis. 7. Dementia. BRIEF HISTORY OF PRESENT ILLNESS: This is a 62-year-old female, who was [facility] ER for lower extremity swelling and redness noted by the nursing staff with multiple sores noted. The patient has a previous history of hypertension, hyperlipidemia, depression, bipolar disorder, psychosis and dementia. Her initial lab work revealed a white count of 6.3, hemoglobin of 12.9, hematocrit of 39.4, platelets was 344,000. Her PT/INR was normal at 10.7 and 1.0. Her sodium was 136, potassium 3.5, chloride 102, bicarb 29, BUN 11, creatinine 0.8, glucose 79. The patient also had a lower extremity venous Doppler, which was done to her lower extremities, which was negative for DVT. The patient was subsequently admitted for IV antibiotic treatment. HOSPITAL COURSE: The patient improved during her hospital stay, seen and evaluated by Dr. Bishnu Beck for ID as well as Dr. Castellanos. The patient's cellulitis improved during her hospital stay. She was subsequently discharged in stable condition, was given p.o. antibiotics to take for at least the next 5 days. [facility]# [id number]
== END 2017-11-13 19:25 | DRG 603 ==
LOC: ER 12:43 → MSI 16:00
PROVIDERS: ADMIT Family Medicine; ATTEND Family Medicine
DX: L03.115 Cellulitis of right lower limb (principal); N39.0 Urinary tract infection, site not specified; L03.116 Cellulitis of left lower limb; E78.5 Hyperlipidemia, unspecified; F29 Unspecified psychosis not due to a substance or known physiological condition; F03.90 Unspecified dementia, unspecified severity, without behavioral disturbance, psychotic disturbance, mood disturbance, and anxiety; I10 Essential (primary) hypertension; R21 Rash and other nonspecific skin eruption; F31.9 Bipolar disorder, unspecified; Z66 Do not resuscitate; S81.802A Unspecified open wound, left lower leg, initial encounter; S81.801A Unspecified open wound, right lower leg, initial encounter; Z82.49 Family history of ischemic heart disease and other diseases of the circulatory system; Z79.82 Long term (current) use of aspirin
CPT/HCPCS: 36415-UA; 80053-TC; 81001-TC; 82550-TC; 83605; 84484-TC; 85025-TC; 85610-TC; 85730-TC; 93005; 93970-TC-50; J0696; Z7610